=== PATIENT | male | born 1930 | race Caucasian/White ===

== ENCOUNTER 2017-05-23 08:20 | Inpatient (IN) | payer MEDICARE, BC ==
[~2017-05-23] VITALS: Ht 185.4 cm; Wt 75.0 kg
[~2017-05-23 08:20] MED LIST: AMIO200T2 PO; CALC1TAB98 PO; CYAN100T PO; FER325 PO; MEX150 PO; OMEP20CA9 PO; SIMV20TA2 PO; VIT1CAPS15 PO
[2017-05-23] MEDS ORDERED: SOD CHLORIDE 0.9% 1,000 ML IV STA (08:25)
[2017-05-23] MEDS ORDERED: KETOROLAC 15 MG INJ IV STA (08:25)
--- NOTE | 2017-05-23 08:25 | ERD ---
ER Documentation Chief Complaint Date/Time DATE: 05/23/17 TIME: 08:24 Chief Complaint HPI 87-year-old man brought in by EMS from skilled nursing for suspected right hip fracture. He fell this morning. He denies head or neck injury, but he was not able to ambulate after the incident. Patient denies chest pain or shortness of breath, no vomiting or diarrhea. Patient was transported here by EMS without further complications ROS All systems reviewed and are negative except as per history of present illness. Medications Home Meds Reported Medications Omeprazole* (Omeprazole*) 40 Mg Capsule.dr, 40 MG PO DAILY, #30 CAP 05/23/17 Vit C/Billie Ac/Lut/Copper/Znox (PRESERVISION LUTEIN SOFTGEL) 1 Each Capsule, 1 EACH PO DAILY 07/28/15 Calcium Carbonate-Vitamin D3 (Calcium + D 600 Tablet) 1 Tab Tablet, 1 TAB PO DAILY, TAB 07/28/15 Ferrous Sulfate* (Ferrous Sulfate*) 325 Mg Tabec, 325 MG PO DAILY, TAB 07/28/15 Cyanocobalamin* (Vitamin B-12*) 100 Mcg Tablet, 100 MCG PO DAILY, TAB 07/28/15 Mexiletine Hcl* (Mexiletine Hcl*) 150 Mg Capsule, 150 MG PO DAILY, CAP 07/28/15 Amiodarone Hcl* (Amiodarone Hcl*) 200 Mg Tablet, 200 MG PO BID, TAB 07/28/15 Simvastatin (Simvastatin) 20 Mg Tablet, 20 MG PO HS, TAB 07/28/15 Discontinued Reported Medications Omeprazole* (Prilosec*) 20 Mg Capsule.dr, 20 MG PO BID, CAP 07/28/15 Allergies Allergies: Coded Allergies: No Known Allergy (Unverified , 05/23/17) PMhx/Soc History of cholelithiasis, hiatal hernia, sick sinus syndrome status post pacemaker, hypertension, dyslipidemia, anemia, deconditioning, difficulty ambulating History of Surgery: Yes (pacemaker placement) Anesthesia Reaction: No Hx Neurological Disorder: No Hx Respiratory Disorders: Yes (APNEA) Hx Cardiac Disorders: Yes (HYPERTENSION, HYPERCHOLESTEROLEMIA) Hx Psychiatric Problems: No Hx Miscellaneous Medical Probl: Yes (sick sinus syndrome, HTN, hyperlipidemia, A-Fib) Hx Alcohol Use: No Hx Substance Use: No Hx Tobacco Use: No FmHx Family History: No diabetes Physical Exam Vitals Vital Signs Date Time Temp Pulse Resp B/P Pulse Ox O2 Delivery O2 Flow Rate FiO2 05/23/17 08:40 96.6 70 19 127/60 93 Room Air 05/23/17 08:28 97.8 78 16 135/68 100 Per nurses records Physical Exam GENERAL: Well-developed, well-nourished, appears dehydrated, afebrile HEENT: Dry mucous membranes, pink conjunctiva, no cervical spine tenderness or step-off deformities, no goiter, no jaundice or icterus, extraocular movements intact without pain. No submandibular induration, and no pharyngeal erythema NEURO: Alert and oriented 3, cranial nerves II through XII intact bilaterally, pupils equal round reactive to light, no focal deficits or facial asymmetry, sensation intact distally Strength 5/5 in upper and lower extremities bilaterally CARDIAC: Regular rate and rhythm, no murmurs rubs or gallops LUNGS: Clear bilaterally no wheezing crackles or stridor ABDOMEN: Soft nontender, no guarding, no rigidity, no rebound, no psoas sign no obturator sign. Normoactive bowel sounds SKIN: Warm and dry to touch, no abrasions, contusions, or hematomas, no lacerations, no ecchymosis, no target lesions, and without ulcers EXTREMITIES: Right lateral hip tenderness to touch with soft tissue contusion, distal pulses equal bilateral PSYCH: Normal affect without agitation or irritability Result Diagram: 05/23/1782405/23/17824 Results 24 hrs Laboratory Tests Test 05/23/17 08:25 White Blood Count 5.410^3/ul Red Blood Count 3.8810^6/ul Hemoglobin 12.7g/dl Hematocrit 38.6% Mean Corpuscular Volume 99.5fl Mean Corpuscular Hemoglobin 32.7pg Mean Corpuscular Hemoglobin Concent 32.9g/dl Red Cell Distribution Width 13.8% Platelet Count 72109^3/UL Mean Platelet Volume 9.1fl Neutrophils % 75.9% Lymphocytes % 11.4% Monocytes % 6.5% Eosinophils % 5.2% Basophils % 0.4% Nucleated Red Blood Cells % 0.0/100WBC Neutrophils # (Manual) 4.110^3/ul Lymphocytes # 0.610^3/ul Monocytes # 0.410^3/ul Eosinophils # 0.310^3/ul Basophils # 0.010^3/ul Nucleated Red Blood Cells # 0.010^3/ul Sodium Level 145mmol/L Potassium Level 4.1mmol/L Chloride Level 102mmol/L Carbon Dioxide Level 31mmol/L Anion Gap 16 Blood Urea Nitrogen 24mg/dl Creatinine 1.04mg/dl Glucose Level 111mg/dl Calcium Level 8.9mg/dl Total Bilirubin 0.5mg/dl Direct Bilirubin 0.00mg/dl Indirect Bilirubin 0.5mg/dl Aspartate Amino Transf (AST/SGOT) 31IU/L Alanine Aminotransferase (ALT/SGPT) 49IU/L Alkaline Phosphatase 69IU/L Troponin I 0.026ng/ml Total Protein 6.9g/dl Albumin 3.6g/dl Globulin 3.30g/dl Albumin/Globulin Ratio 1.09 Lipase 20U/L Current Medications Medications (Trade) Dose Ordered Sig/Fiorella Route PRN Reason Start Time Stop Time Status Last Admin Dose Admin Sodium Chloride (NS) 1,000 ml @ 1,000 mls/hr Q1H STAT IV 05/23/17 08:25 05/23/17 09:24 DC 05/23/17 08:52 Ketorolac Tromethamine (Toradol) 15 mg ONCE STAT IV 05/23/17 08:25 05/23/17 08:27 DC 05/23/17 08:49 Procedures/MDM IV line was established patient was placed on computer aided drafter rhythm strip revealed a wide-complex rhythm at 70 bpm. Patient was afebrile. Perdomo catheter was placed and I administered 1 L normal saline intravenously for dehydration, Toradol 15 mg IV 1, Zofran 4 mg IV. Patient states his symptoms improved after EMS administered opioid analgesics and pain here controlled with Toradol, patient is without complaints of pain at this time. EKG performed, read by me revealed a normal sinus rhythm at 70 bpm, right axis deviation, right bundle branch block, no concerning ST elevations or depressions noted. One AP view of the chest performed, read by me reveals no acute infiltrates, normal mediastinum, sharp costophrenic and cardiac borders, no air under the diaphragm. Otherwise unremarkable chest x-ray. One view pelvis x-ray performed, read by me there is intratrochanteric fracture of the right femur, no other fracture or dislocation noted. Two-view x-ray of the right hip performed, read by me there is intratrochanteric proximal femur fracture no other fracture dislocation noted. CT scan of the brain was performed there is negative for acute bleed mass or shift. CBC was normal, electrolytes revealed dehydration, liver function tests normal, troponin negative. Urine analysis negative for infection. Patient will be admitted to [facility] for continued medical management and possible ORIF, on-call orthopedic surgeon Dr. Eagle has been paid she has yet to call back. Departure Diagnosis: Primary Impression: Femur fracture, right Encounter type: initial encounter Femur location: lesser trochanter Fracture type: closed Fracture alignment: displaced Qualified Code: S72.121A - Closed displaced fracture of lesser trochanter of right femur, initial encounter Additional Impression: Dehydration Condition: TARAS Hayes MD May 23, 2017 08:25
[2017-05-23 08:40] VITALS: TEMP 96.6
[2017-05-23 09:21] LABS: BASOPHILS % 0.4 % (0.0-2.0); EOSINOPHILS # 0.3 10^3/ul (0.0-0.5); EOSINOPHILS % 5.2 % (0.0-7.0); HEMATOCRIT 38.6 % (42.0-52.0); HEMOGLOBIN 12.7 g/dl (14.0-18.0); LYMPHOCYTES # 0.6 10^3/ul (0.8-2.9); LYMPHOCYTES % 11.4 % (15.0-51.0); MEAN CORPUSCULAR HEMOGLOBIN 32.7 pg (29.0-33.0); MEAN CORPUSCULAR HGB CONC 32.9 g/dl (32.0-37.0); MEAN CORPUSCULAR VOLUME 99.5 fl (82.0-101.0); MEAN PLATELET VOLUME 9.1 fl (7.4-10.4); MONOCYTE # 0.4 10^3/ul (0.3-0.9); MONOCYTES % 6.5 % (0.0-11.0); NEUTROPHILS % 75.9 % (39.0-77.0); PLATELET COUNT 155 10^3/UL (140-415); RED BLOOD COUNT 3.88 10^6/ul (4.70-6.10); RED CELL DISTRIBUTION WIDTH 13.8 % (11.5-14.5); WHITE BLOOD COUNT 5.4 10^3/ul (4.8-10.8)
--- NOTE | 2017-05-23 09:24 | RADRPT ---
PROCEDURE: XR Chest 1 view. CLINICAL INDICATION: Chest pain and trauma. TECHNIQUE: AP views of the chest were obtained. COMPARISON: July 30, 2015 FINDINGS: The heart is large. Calcified atherosclerosis is noted in the aorta. Left-sided dual chamber pacema ker has its leads over the heart and appears stable. The lungs are hyperexpanded. Scattered atelec tasis is noted in the bilateral lower lobes. No consolidations are identified. No pneumothorax is s een. The osseous structures are osteopenic, but appear grossly intact. Degenerative changes are s een in the shoulders. IMPRESSION: Cardiomegaly with calcified atherosclerosis in the aorta. No visualized traumatic injury. Hyperexpanded lungs. Subsegmental atelectasis in the bilateral lower lobes. If there is high clinical suspicion for traumatic injury, further evaluation with CT should be consi dered. RPTAT: AA .Alexander Juan MD, MD Date Time Electronically viewed and signed by .Alexander Juan MD, MD on 05/23/2017 09:23 .P/
--- NOTE | 2017-05-23 09:25 | RADRPT ---
PROCEDURE: XR Pelvis 1 View. CLINICAL INDICATION: Pelvic pain and trauma. TECHNIQUE: Single AP view of the pelvis. COMPARISON: No prior studies are available for comparison. FINDINGS: Comminuted, mildly displaced, impacted and angulated fracture involving the proximal femoral diaphys is and lesser trochanter is identified. Diffuse osteopenia is observed. The remaining osseous struc tures appear intact. No destructive bony lesions are observed. Moderate narrowing of bilateral hip joints is identified. Degenerative changes are seen in the lower lumbar spine. Vascular calcificat ions are seen in the pelvis in both thighs. IMPRESSION: Proximal right femur fracture, involving the lesser trochanter. Osteopenia. Moderate osteoarthritis of both hips. Degenerative changes in the lower lumbar spine. Vascular calcifications. If there is high clinical suspicion for additional traumatic injury, further evaluation with CT shou ld be considered.. RPTAT: AA .Alexander Juan MD, Date Time Electronically viewed and signed by .Alexander Juan MD, MD on 05/23/2017 09:25 .P/
--- NOTE | 2017-05-23 09:26 | RADRPT ---
PROCEDURE: XR Hip 2 Views. CLINICAL INDICATION: Hip pain and trauma. TECHNIQUE: AP and oblique views of the right hip were performed. COMPARISON: None. FINDINGS: Comminuted, mildly displaced, impacted and angulated fracture involving the proximal femoral diaphys is and lesser trochanter is identified. Osteopenia is seen. The remaining osseous structures appear intact. No destructive bony lesions are observed. Moderate narrowing of the right hip joint is se en. Vascular calcifications are seen in the right thigh. IMPRESSION: Proximal right femur fracture. Osteopenia. Moderate osteoarthritis of the right hip. Vascular calcifications. If there is high clinical suspicion for additional traumatic injury, further evaluation with CT shou ld be considered. RPTAT: AA .Alexander Juan MD, Date Time Electronically viewed and signed by .Alexander Juan MD, MD on 05/23/2017 09:26 .P/
[2017-05-23 09:35] LABS: ALBUMIN 3.6 g/dl (3.3-4.9); ALBUMIN/GLOBULIN RATIO 1.09; BILIRUBIN,INDIRECT 0.5 mg/dl (0-1.1); BILIRUBIN,TOTAL 0.5 mg/dl (0.2-1.3); CALCIUM 8.9 mg/dl (8.4-10.2); CREATININE 1.04 mg/dl (0.61-1.24); POTASSIUM 4.1 mmol/L (3.5-5.1); TOTAL PROTEIN 6.9 g/dl (6.1-8.1)
[2017-05-23 09:46] LABS: TROPONIN-I 0.026 ng/ml (0.00-0.12)
--- NOTE | 2017-05-23 10:16 | RADRPT ---
PROCEDURE: CT head without intravenous contrast CLINICAL INDICATION: Fall. Concern for intracranial hemorrhage. COMPARISON: None relevant listed. TECHNIQUE: Axial CT images from skull base to vertex with coronal and sagittal reformats. DOSE: The estimated administered radiation dose was CTDI vol = 45 mGy. DLP = 630 mGy-cm. One or mor e of the following dose reduction techniques were used: automated exposure control, adjustment of th e mA and/or kV according to patient size, or use of iterative reconstruction. FINDINGS: Parenchyma: No acute hemorrhage, large territorial infarction, or mass. Marked amount of periventric ular and subcortical white matter hypodensity, a nonspecific finding often associated with chronic m icroangiopathy. Ventricles: Mild generalized volume with proportionate ex vacuo ventricular dilation. Extra-axial spaces: No herniation or midline shift. Paranasal sinuses: Clear. Mastoids and middle ears: Clear. Visualized orbits: Bilateral lens replacements. Vessels: Mild calcified atherosclerotic arterial plaque. Bones: Normal. Extracranial soft tissues: Normal. Additional comment: None. IMPRESSION: 1. No acute intracranial hemorrhage. 2. Marked white matter changes, a nonspecific finding often associated with chronic microangiopathy. RPTAT: PP Physician Paula Date Time Electronically viewed and signed by Physician Paula on 05/23/2017 10:16 LG/
[2017-05-23] MEDS ORDERED: OMEP40CA6 PO (10:18)
[2017-05-23 15:00] VITALS: BP 99/48; PULSE 76; RESP 18
[2017-05-23 15:32] VITALS: Ht 185.4 cm; Wt 75.0 kg
[2017-05-23] MEDS: morphine 2 MG INJ IV PRN (15:37)
--- NOTE | 2017-05-23 15:44 | HP ---
Date/Time of Note Date/Time of Note DATE: 05/23/17 TIME: 15:35 Assessment/Plan VTE Prophylaxis VTE Prophylaxis Intervention: SCD's Lines/Catheters Urinary Cath still in place: Yes Reason Cath still needed: other (indicate) Assessment/Plan Assessment/Plan This is a 87-year-old male who was brought by EMS following mechanical fall with resultant right leg pain. 1. Mechanical fall with proximal femur fracture. -Orthopedic consult with Dr. Eagle was called from the emergency room. -Continue pain control and immobilization of affected part. 2. Atrial fibrillation, status post AICD placed -Resume amiodarone and mexiletine -EKG and 2D echocardiogram. 3. History of hypertension. Of treatment 2/2 hypotension for which patient on Midodrine at home. Currently blood pressure stable. -Continue to monitor. 4. Dyslipidemia -Resume statin and obtain lipid panel 5. Osteoarthritis -Resume home medications. 6. Debility -Follow-up with orthopedic recommendations regarding physical therapy when medically stable. DVT prophylaxis: SCDs PUD prophylaxis: Protonix Plan: Patient will be started on a diet. Patient will have orthopedic evaluation. We will also proceed with a 2D echocardiogram and twelve-lead EKG based on his cardiac risk factors and will also have a cardiology eval in case if patient needs any surgical intervention. Given patient's medical condition, patient is at intermediate to high risk for any untoward medical events for surgery. However, benefit likely outweigh risks and recommended to have surgical intervention if indicated by orthopedics. Approximately 60 minutes was spent on this history and physical. Patient was seen in collaboration with Dr. Rubin. HPI/ROS Admit Date/Time Admit Date/Time May 23, 2017 at 10:26 Hx of Present Illness This is a 87 year-old male with a past medical history of atrial fibrillation AICD placed, cervical fusion surgery, debility with wheelchair bound at home, history of hypertension now on hypotensive side for which he also takes midodrine at home, dyslipidemia, osteoarthritis, and ingrown toenails on left who was brought by EMS to the emergency room after patient sustained mechanical fall with resultant right hip pain and right foot drop. Patient did not have any head trauma or other trauma with this fall. Initial workup showed proximal femur fracture. Brain CT was negative. Patient was treated with Toradol and normal saline in the emergency room and orthopedic consult with Dr. Eagle was called and patient was admitted for further evaluation. Patient denied any chest pain, shortness of breath, palpitation, nausea, vomiting, abdominal pain, dizziness, numbness, tingling, or other constitutional symptoms. Patient did not have any fever or chills. ROS 12 point review of system was assessed and is negative other than what is mentioned in the HPI. PMH/Family/Social Past Medical History see HPI Past Surgical History see hpi Social History Former smoker who quit 5 years ago. Denied history of alcohol or illicit drug use. Smoking Status: Former smoker Exam/Review of Systems Vital Signs Vitals Vital Signs Date Time Temp Pulse Resp B/P Pulse Ox O2 Delivery O2 Flow Rate FiO2 05/23/17 15:00 98.0 76 18 99/48 95 Nasal Cannula 2.0 Exam Exam General: Fairly male, not in any acute distress . HEENT: Normocephalic, Atraumatic, No laceration or hematoma; Eyes: PEERL, Conjunctiva clear, Anicteric sclera Neck: Supple without any lymphadenopathy, nontender, no JVD, no carotid bruits, trachea midline, no thyromegaly Cardiac: S1, S2 auscultated, regular rhythm and rate, no mumurs or gallop Pulmonary: Normal respiratory effort. Chest clear to auscultation bilaterally, no adventitious breath sounds GI: Abdomen normal to inspection. Soft, non tender, non- distended, no masses, no rebound tenderness or guarding. Bowel sounds active on all four quadrants Genitourinary: Deferred Extremities: Generalized weakness on all 4 extremities. Right hip with pain and shortening and external rotation of the right lower extremity. No cyanosis, clubbing, or edema. Pulses [2+] bilaterally.No focal weakness appreciated. Neurologic: Alert to person, place, time, and situation. Affect appropriate, intact sensation. Skin: Clean,dry, and intact. No ecchymosis, no rashes, or lesions Labs Result Diagram: 05/23/1782405/23/17824 Medications Medications Current Medications Morphine Sulfate (morphine) 2 mg Q3 PRN IV pain; Start 05/23/17 at 15:00 NELLY LEVI NP May 23, 2017 15:44
[2017-05-23] MEDS ORDERED: ACETAMINOPHEN 650 MG SUPP PR PRN (16:00)
[2017-05-23] MEDS ORDERED: ACETAMINOPHEN 325 MG TAB PO PRN (16:00)
[2017-05-23] MEDS ORDERED: ONDANSETRON 4 MG INJ IV PRN (16:00)
[2017-05-23] MEDS ORDERED: NACL 0.9% 3 ML SYG IV SCH (16:00)
[2017-05-23] MEDS ORDERED: morphine 2 MG INJ IV PRN (16:00)
[2017-05-23] MEDS ORDERED: MIDO2.5T PO (18:02)
[2017-05-23] MEDS: CALCIUM/VITAMIN D (250/125) TAB PO SCH (18:46)
[2017-05-23] MEDS: ATORVASTATIN 10 MG TAB PO SCH (21:04)
[2017-05-23] MEDS: AMIODARONE 200 MG TAB PO SCH (21:04)
[2017-05-23 21:05] VITALS: BP 108/54; PULSE 70; RESP 17
--- NOTE | 2017-05-23 22:40 | RADRPT ---
Echocardiogram Report Patient Name: FIDEL PINEDA Gender: Male Date: 1930 Study Date: 23-May-2017 Commodity Buyer: Dimitry [facility] Location: 405 Ref. Physician: NELLY LEVI Quality: Adequate Procedures: Transthoracic echocardiogram with complete 2D, M-Mode, and doppler examination. Indications: Pre-op eval. 2D/M Mode Doppler Measurement Value Normal Ranges Measurement Value Normal Ranges LVIDd 2D 4.9 3.5 - 5.6 cm AV Peak Los 1.9 m/sec LVIDs 2D 4.0 2.1 - 4.1 cm AV Peak PG 14.0 mmHg FS 2D 19.0 % LVOT Peak Los 0.7 m/sec LVPWd 2D 1.1 0.6 - 1.1 cm LVOT Peak PG 2.0 mmHg IVSd 2D 1.1 0.6 - 1.1 cm MV E Peak Los 0.9 m/sec IVS/LVPW 2D 0.9 MV A Peak Los 0.9 m/sec AoR Diam 2D 2.6 2.0 - 3.7 cm MV E/A 1.0 LA/Ao 2D 2 0 - 1 MV Decel Time 201 msec EDV 2D 117.0 cm3 MV E/A 1.0 ESV 2D 62.1 cm3 TR Peak Los 2.3 m/sec LA Dimen 2D 4.0 2.3 - 4.0 cm TR Peak PG 21.0 mmHg RVSP 24.0 mmHg Findings Left Ventricle: Normal left ventricular systolic function. Normal left ventricular cavity size. Left ventricular wall thickness upper limits of normal. Mild global left ventricular systolic dysfunction. Ejection fraction is visually estimated at 40 %. Tissue Doppler/Mitral Doppler indices are consistent with impaired relaxation (Stage I diastolic dysfunction). Right Ventricle: Normal right ventricular size. Normal right ventricular systolic function. Pacemaker right heart. Left Atrium: The left atrium is normal in size. Right Atrium: The right atrium is normal in size. Mitral Valve: Mitral valve leaflets appear mildly thickened. Mild mitral annular calcification. Trace mitral regurgitation. Aortic Valve: Aortic sclerosis without stenosis. Trace aortic valve regurgitation. Tricuspid Valve: Normal appearance of the tricuspid valve. Estimated peak PA systolic pressure 24 mmHg. There is mild tricuspid regurgitation. Pulmonic Valve: Pulmonic valve not well visualized. There is trace pulmonic regurgitation. Pericardium: Left pleural effusion seen. Aorta: Normal aortic root. IVC: Normal size and normal respiratory collapse consistent with normal right atrial pressure. Conclusions 1.Normal left ventricular systolic function. Normal left ventricular cavity size. Left ventricular wall thickness upper limits of normal. Mild global left ventricular systolic dysfunction. Ejection fraction is visually estimated at 40 %. Tissue Doppler/Mitral Doppler indices are consistent with impaired relaxation (Stage I diastolic dysfunction). 2.Normal right ventricular size. Normal right ventricular systolic function. Pacemaker right heart. 3.Mitral valve leaflets appear mildly thickened. Mild mitral annular calcification. Trace mitral regurgitation. 4.Aortic sclerosis without stenosis. Trace aortic valve regurgitation. 5.Normal appearance of the tricuspid valve. Estimated peak PA systolic pressure 24 mmHg. There is mild tricuspid regurgitation. 6.Pulmonic valve not well visualized. There is trace pulmonic regurgitation. Electronically Signed By: Josh Holliday 23-May-2017 22:40:00 -0700 Patient Name: FIDEL PINEDA Study Date: 23-May-2017 [id number]
--- NOTE | 2017-05-24 02:54 | CONS ---
DATE OF ADMISSION: 05/23/2017 DATE OF CONSULTATION: 05/23/2017 TYPE OF CONSULTATION: Cardiology REFERRING PHYSICIAN: Justo Rubin MD/Karoline Tyler NP from the hospitalist service. REASON FOR CONSULTATION: Preoperative evaluation, AICD, cardiomyopathy. HISTORY OF PRESENT ILLNESS: Mr. Gill is a very pleasant 87-year- old male with a history of AICD placement, presumed cardiomyopathy, atrial fibrillation, and dyslipidemia who states he was in his bathroom using his walker when he took a turn, slipped and fell, landed on his hip and had significant pain. The patient was brought here to the Emergency Department were upon arrival temperature was 97.8, blood pressure 135/68, pulse 78, respiratory rate 16, and saturating at 100 percent. The patient's labs, white blood cell count 5.4, hemoglobin 12.7, platelet count of 155. Sodium 145, potassium 4.1, creatinine 1.0, BUN 24. Troponin negative. Lipase was 20. The patient underwent a pelvic x-ray, revealing moderate arthritis of both hips, proximal right femur fracture involving the lesser trochanter. The patient had a hip x-ray, also revealing a proximal right femur fracture. A chest x-ray revealed cardiomegaly, calcified atherosclerosis in the aorta, no visualized traumatic injury, and hyperexpanded lungs. A brain CT revealed no acute intracranial abnormalities and marked white matter changes. The patient does not have much currently on the chart for my review at this time. The patient is admitted to the 5th floor. Denies chest pain, shortness of breath. PAST MEDICAL HISTORY: As above in HPI. MEDICATIONS: Currently in the hospital: 1. Mexiletine 150 mg daily. 2. Amiodarone 200 mg p.o. b.i.d. 3. Lipitor 10 mg daily. ALLERGIES: NO KNOWN DRUG ALLERGIES. SOCIAL HISTORY: No current tobacco, ETOH or illicit drug use. FAMILY HISTORY: No history of sudden cardiac or early CAD. REVIEW OF SYSTEMS: As above in the HPI. CONSTITUTIONAL: No fevers, chills. PULMONARY: No current shortness of breath. CARDIOVASCULAR: History of AICD. GASTROINTESTINAL: No vomiting. GENITOURINARY: No hematuria. MUSCULOSKELETAL: Degenerative joint disease. PSYCHIATRIC: Mo documented psychiatric history. NEUROLOGIC: No documented CVA. PHYSICAL EXAMINATION: VITAL SIGNS: Temperature 98, blood pressure 159/48, pulse 76, respiratory rate 18, saturating at 95 percent on 2 L. GENERAL: The patient is alert, awake, in no acute distress, complaining of mild pain in his right hip. NECK: JVP of approximately 8-9 cm of water. HEART: Regular rate and rhythm. Normal S1, S2 and 1/6 systolic murmur. ABDOMEN: Positive bowel sounds. Soft. EXTREMITIES: No pitting edema; 1-plus pulses bilaterally posterior tibial. LABORATORY DATA: Labs as per in the HPI with most recent today, sodium 145, potassium 4.1, creatinine 1.0, BUN 24; troponin negative; white blood cell count 5.4, hemoglobin 12.7, platelet count 155. IMAGING STUDIES: As above in the HPI. No further imaging studies for review. ECG, no electrocardiograms for review at this time. IMPRESSION: 1. Preoperative evaluation prior to possible open reduction and internal fixation of hip. 2. Status post fall, mechanical by description. 3. History of automatic implantable cardioverter defibrillator. 4. Presumed cardiomyopathy. 5. History of atrial fibrillation. 6. Hip fracture. 7. Dyslipidemia. RECOMMENDATIONS: 1. At this time, would check a baseline EKG now and repeat EKG in the morning to assess for any recent abnormalities. 2. We will check a 2D echo to further assess the patient's ejection fraction, wall motion, and any major abnormalities. 3. Continue the patient's current amiodarone and Mexiletine at this time. Although, mexiletine, if used for cardiac rate and rhythm, this will be dosed at least q.12 and likely q.8. 4. Continue the patient's current statin therapy and adjust according to a fasting lipid panel which will be checked. 5. We will consider initiation of beta-fuad therapy in this patient who is on multiple antiarrhythmic agents, for what I would presume to be ventricular arrhythmias given mexiletine. 6. Pain control. 7. Pending orthopedic consult. Thank you for allowing me to take part in the care of this patient. I will continue to follow very closely with you with further recommendations to be made as the patient progresses through inpatient hospital clinical course. Dictated By: Josh Holliday MD /fito/serg /Document#: [id number] CC: Justo Rubin MD; Karoline Tyler NP;*EndCC*
--- NOTE | 2017-05-24 03:32 | CONS ---
DATE OF ADMISSION: 05/23/2017 DATE OF CONSULTATION: 05/23/2017 HISTORY OF PRESENT ILLNESS: Patient is an 87-year-old male, who was admitted on 23 May 2017 when he was brought into the emergency room by EMS. According to the patient, he was in the bathroom when he lost his balance and fell, landing on his right hip. Following the fall, he was not able to stand up or walk because of the severe pain. PAST MEDICAL/SURGICAL HISTORY: He had multiple medical problems in the past, including atrial fibrillation, which led into AICD placement, cervical fusion surgery, history of hypertension, dyslipidemia, osteoarthritis, and ingrown toenails. PHYSICAL EXAMINATION: My examination revealed an 87-year-old male who was not in any acute distress at this time. There was a tenderness and swelling around the right hip. There was a shortening and external rotation of the right lower extremity. There was no evidence of acute neurovascular compromise involving the right lower extremity. RADIOLOGY: X-rays of the right hip revealed an intertrochanteric/subtrochanteric fracture of the right hip. IMPRESSION: Intertrochanteric and subtrochanteric fracture of the right hip. PLAN: To surgery for open reduction and internal fixation as soon as he can be medically cleared for surgery. Dictated By: In Cora Eagle MD /fito/leatha /Document#: [id number]
[2017-05-24 03:57] VITALS: BP 102/50; RESP 20
[2017-05-24] MEDS: PANTOPRAZOLE (EC) 40 MG TAB PO SCH (05:01)
[2017-05-24 05:33] LABS: ABNORMAL IP MESSAGE 1; BASOPHILS % 0.2 % (0.0-2.0); EOSINOPHILS # 0.2 10^3/ul (0.0-0.5); EOSINOPHILS % 4.2 % (0.0-7.0); HEMATOCRIT 32.7 % (42.0-52.0); HEMOGLOBIN 10.7 g/dl (14.0-18.0); LYMPHOCYTES # 0.6 10^3/ul (0.8-2.9); LYMPHOCYTES % 9.7 % (15.0-51.0); MEAN CORPUSCULAR HEMOGLOBIN 33.1 pg (29.0-33.0); MEAN CORPUSCULAR HGB CONC 32.7 g/dl (32.0-37.0); MEAN CORPUSCULAR VOLUME 101.2 fl (82.0-101.0); MEAN PLATELET VOLUME 9.4 fl (7.4-10.4); MONOCYTE # 0.6 10^3/ul (0.3-0.9); MONOCYTES % 10.4 % (0.0-11.0); PLATELET COUNT 131 10^3/UL (140-415); POSITIVE DIFF @See below; RED BLOOD COUNT 3.23 10^6/ul (4.70-6.10); WHITE BLOOD COUNT 5.8 10^3/ul (4.8-10.8)
[2017-05-24] MEDS: morphine 2 MG INJ IV PRN ×3 (05:50→16:10)
[2017-05-24] MEDS ORDERED: DEXTROSE 5%-0.45% NACL 1,000 ML IV SCH (06:00)
[2017-05-24 06:03] LABS: ALBUMIN 2.7 g/dl (3.3-4.9); ALBUMIN/GLOBULIN RATIO 1.03; BILIRUBIN,INDIRECT 0.4 mg/dl (0-1.1); BILIRUBIN,TOTAL 0.4 mg/dl (0.2-1.3); CALCIUM 8.3 mg/dl (8.4-10.2); CHOL/HDL RATIO 1.7 RATIO; CREATININE 0.99 mg/dl (0.61-1.24); MAGNESIUM 1.8 mg/dl (1.7-2.5); PHOSPHORUS 3.7 mg/dl (2.5-4.9); TOTAL PROTEIN 5.3 g/dl (6.1-8.1)
[2017-05-24] MEDS: DEXTROSE 5%-0.45% NACL 500 ML IV SCH ×3 (06:43→20:20)
[2017-05-24 07:41] VITALS: BP 102/55; RESP 18
[2017-05-24 07:42] LABS: THYROID STIMULATING HORMONE 0.436 MIU/L (0.465-4.680)
[2017-05-24] MEDS: MEXILETINE 150 MG CAP PO SCH (09:00)
[2017-05-24] MEDS: CALCIUM/VITAMIN D (250/125) TAB PO SCH (09:00)
[2017-05-24] MEDS ORDERED: CYANOCOBALAMIN 100 MCG TAB PO SCH (09:00)
[2017-05-24] MEDS: FERROUS SULFATE (EC) 325 MG TAB PO SCH (09:00)
[2017-05-24] MEDS: BETA CAROTENE/VIT C/E/MIN TAB PO SCH (09:00)
[2017-05-24] MEDS: AMIODARONE 200 MG TAB PO SCH ×2 (09:00→20:56)
--- NOTE | 2017-05-24 11:13 | PN ---
Date/Time of Note Date/Time of Note DATE: 05/24/17 TIME: 11:05 Assessment/Plan VTE Prophylaxis VTE Prophylaxis Intervention: SCD's Lines/Catheters IV Catheter Type (from Nrsg): Saline Lock Urinary Cath still in place: Yes Reason Cath still needed: other (indicate) Assessment/Plan Chief Complaint/Hosp Course 1. Mechanical fall with proximal femur fracture. -Ortho eval appreciated-Recommended ORIF -Continue pain control and immobilization of affected part. 2. Atrial fibrillation, status post AICD placed -On amiodarone and Mexiletine 3.Cardiomyopathy. EF 40% -On betablockers. 4. History of hypertension. Of treatment 2/2 hypotension for which patient takes midodrine at home. Currently blood pressure stable. -Continue to monitor as patient has been started on betablocker per cards. 5. Dyslipidemia -on statin 6. Osteoarthritis -Continue home medications. 7. Debility -Follow-up with orthopedic recommendations regarding physical therapy when medically stable. 8. Anemia,likely chronic. HH stable. -Obtain B12/Folate. DVT prophylaxis: SCDs PUD prophylaxis: Protonix PLAN:Continue with ortho recs. Pending cardiology clearance for surgery. Given patient's medical condition, patient is at high risk for any untoward medical events for surgery. However, benefit likely outweigh risks and recommended to have surgical intervention. Please follow-up with cardiology recommendation prior any surgical intervention. Case discussed with . Problems: Subjective 24 Hr Interval Summary Free Text/Dictation Evaluated by orthopedic-recommended ORIF Exam/Review of Systems Vital Signs Vitals Vital Signs Date Time Temp Pulse Resp B/P Pulse Ox O2 Delivery O2 Flow Rate FiO2 05/24/17 07:41 97.9 70 18 102/55 99 05/23/17 21:05 Nasal Cannula 2.0 Intake and Output 05/23/17 05/23/17 05/24/17 14:59 22:59 06:59 Intake Total 1000 ml 400 ml Output Total 400 ml Balance 1000 ml 0 ml Exam General: Fairly male, not in any acute distress . HEENT: Normocephalic, Atraumatic, No laceration or hematoma; Eyes: PEERL, Conjunctiva clear, Anicteric sclera Neck: Supple without any lymphadenopathy, nontender, no JVD, no carotid bruits, trachea midline, no thyromegaly Cardiac: S1, S2 auscultated, regular rhythm and rate, no mumurs or gallop Pulmonary: Normal respiratory effort. Chest clear to auscultation bilaterally, no adventitious breath sounds GI: Abdomen normal to inspection. Soft, non tender, non- distended, no masses, no rebound tenderness or guarding. Bowel sounds active on all four quadrants Genitourinary: Deferred Extremities: Generalized weakness on all 4 extremities. Right hip with pain and shortening and external rotation of the right lower extremity. No cyanosis, clubbing, or edema. Pulses [2+] bilaterally.No focal weakness appreciated. Neurologic: Alert to person, place, time, and situation. Affect appropriate, intact sensation. Skin: Clean,dry, and intact. No ecchymosis, no rashes, or lesions Results Result Diagram: 05/24/1743905/24/17442 Results 24 hrs Laboratory Tests Test 05/24/17 00:35 05/24/17 04:40 05/24/17 04:43 Troponin I 0.034 0.038 White Blood Count 5.8 Red Blood Count 3.23 L Hemoglobin 10.7 L Hematocrit 32.7 L Mean Corpuscular Volume 101.2 H Mean Corpuscular Hemoglobin 33.1 H Mean Corpuscular Hemoglobin Concent 32.7 Red Cell Distribution Width 14.0 Platelet Count 131 L Mean Platelet Volume 9.4 Neutrophils % 75.0 Lymphocytes % 9.7 L Monocytes % 10.4 Eosinophils % 4.2 Basophils % 0.2 Nucleated Red Blood Cells % 0.0 Neutrophils # (Manual) 4.3 Lymphocytes # 0.6 L Monocytes # 0.6 Eosinophils # 0.2 Basophils # 0.0 Nucleated Red Blood Cells # 0.0 Sodium Level 141 Potassium Level 4.0 Chloride Level 108 Carbon Dioxide Level 29 Anion Gap 8 # Blood Urea Nitrogen 32 H Creatinine 0.99 Glucose Level 115 Hemoglobin A1c 5.5 Calcium Level 8.3 L Phosphorus Level 3.7 Magnesium Level 1.8 Total Bilirubin 0.4 Direct Bilirubin 0.00 Indirect Bilirubin 0.4 Aspartate Amino Transf (AST/SGOT) 24 Alanine Aminotransferase (ALT/SGPT) 45 Alkaline Phosphatase 52 Total Protein 5.3 #L Albumin 2.7 L Globulin 2.60 Albumin/Globulin Ratio 1.03 Triglycerides Level 48 Cholesterol Level 97 L LDL Cholesterol, Calculated 32 HDL Cholesterol 55 Cholesterol/HDL Ratio 1.7 Thyroid Stimulating Hormone (TSH) 0.436 L Medications Medications Current Medications Morphine Sulfate (morphine) 2 mg Q3 PRN IV pain Last administered on 05/24/17 05:50; Admin Dose 2 MG; Start 05/23/17 at 15:00 Amiodarone HCl (Cordarone) 200 mg BID PO Last administered on 05/23/17 21:04; Admin Dose 200 MG; Start 05/23/17 at 21:00 Cyanocobalamin (Vitamin B12) 100 mcg DAILY PO ; Start 05/24/17 at 09:00 Ferrous Sulfate (Ferrous Sulfate (Ec)) 325 mg DAILY PO ; Start 05/24/17 at 09:00 Mexiletine HCl (Mexitil) 150 mg DAILY PO ; Start 05/24/17 at 09:00 Calcium/Vitamin D (Oyster Shell/ Vit-D (250/125)) 1 tab DAILY PO Last administered on 05/23/17 18:46; Admin Dose 1 TAB; Start 05/23/17 at 16:30 Pantoprazole (Protonix Tab) 40 mg DAILY@06 PO ; Start 05/24/17 at 06:00 Atorvastatin Calcium (Lipitor) 10 mg DAILY@21 PO Last administered on 21:04; Admin Dose 10 MG; Start 05/23/17 at 21:00 Beta Carotene (Ocuvite) 1 tab DAILY PO ; Start 05/24/17 at 09:00 Ondansetron HCl (Zofran Inj) 4 mg Q6H PRN IV NAUSEA AND/OR VOMITING; Start at 16:00 Acetaminophen (Tylenol Tab) 650 mg Q6H PRN PO PAIN LEVEL 1-3 OR FEVER; Start at 16:00 Acetaminophen (Tylenol Supp) 650 mg Q6H PRN ID PAIN LEVEL 1-3 OR FEVER; Start 05/23/17 at 16:00 Morphine Sulfate (morphine) 2 mg Q4H PRN IV SEVERE PAIN LEVEL 7-10; Start 05/23 at 16:00 Docusate Sodium (Colace) 100 mg Q12H PRN PO CONSTIPATION; Start 05/23/17 at 16: 00 Carvedilol 3.125 mg 3.125 mg BID PO ; Start 05/23/17 at 21:00 Dextrose/Sodium Chloride (D5-1/2ns) 500 ml @ 75 mls/hr Q6H40M IV Last administered on 05/24/17t 06:43; Admin Dose 75 MLS/HR; Start 05/24/17 at 07:00 NELLY LEVI NP May 24, 2017 11:13
[2017-05-24 14:33] VITALS: BP 112/56; RESP 18
[2017-05-24 14:37] VITALS: BP 107/53; RESP 18
[2017-05-24 14:42] VITALS: BP 113/58; RESP 18
--- NOTE | 2017-05-24 15:35 | RADRPT ---
Vent Rate: 70 bpm RR Interval: 0 msec OR Interval: 124 msec QRS Duration: 176 msec QT Interval: 480 msec QTC Interval: 518 msec P-R-T [place]: 97 - 23 - 64 degrees Electronic atrial pacemaker Right bundle branch block Septal infarct , age undetermined Abnormal ECG Electronically Signed By: Trung Leo [id number]
--- NOTE | 2017-05-24 17:11 | CONS ---
Date/Time of Note Date/Time of Note DATE: 05/24/17 TIME: 17:03 Assessment/Plan Assessment/Plan Chief Complaint/Hosp Course MPRESSION: 1. Preoperative evaluation prior to possible open reduction and internal fixation of hip.-negative trop x 3. NO cp. EF 40%. NO contraindicated valve lesions. Thus no contraindication to proceeding to or at this time on current medications without further non-invasive evaluation but given low EF and h/o arrythmias is at high risk. 2. Status post fall, mechanical by description. 3. History of automatic implantable cardioverter defibrillator on anti- arrythmics 4. Presumed cardiomyopathy. 5. History of atrial fibrillation. 6. Hip fracture. 7. Dyslipidemia. 8. Cardiomyopathy-EF 40% RECC: -Contnue coreg -start low dose ACEI afterload reduction -follow volume status clsoely -Continue amiodarone/mexilitene -Check post-op ecg and follow closely for s/sx of cv complications Problems: Consultation Date/Type/Reason Admit Date/Time May 23, 2017 at 10:26 Initial Consult Date 05/24/2017 Type of Consultation: cardiology Reason for Consultation Preop Referring Provider: ZION CLEMENT Exam/Review of Systems Vital Signs Vitals Vital Signs Date Time Temp Pulse Resp B/P Pulse Ox O2 Delivery O2 Flow Rate FiO2 05/24/17 14:42 98.0 99 18 113/58 96 05/24/17 08:00 Nasal Cannula 2.0 Intake and Output 05/23/17 05/23/17 05/24/17 15:00 23:00 07:00 Intake Total 1000 ml 400 ml Output Total 400 ml Balance 1000 ml 0 ml Exam Review of Systems: CONSTITUTIONAL: No fevers, chills. PULMONARY: No sob CARDIOVASCULAR: No chest pain/palpitations GASTROINTESTINAL: No nausea/vomiting. GENITOURINARY: No hematuria/dysuria. MUSCULOSKELETAL: No myagias/arthalgias. PSYCHIATRIC: The patient denies depression. NEUROLOGIC: No weakness Constitutional: alert, oriented Psych: no complaints Head: normocephalic ENMT: mucosa pink and moist Neck: jvd (9 cm water), supple Respiratory: diminished breath sounds Cardiovascular: regular rate and rhythm Gastrointestinal: non-tender, soft Musculoskeletal: muscle tone Extremities: edema (none) Neurological: other (No focal deficits) Results Result Diagram: 9/1/17 0440 05/24/17 0443 Results 24 hrs Laboratory Tests Test 05/24/17 00:35 05/24/17 04:40 05/24/17 04:43 05/24/17 12:32 Troponin I 0.034 0.038 0.017 White Blood Count 5.8 Red Blood Count 3.23 L Hemoglobin 10.7 L Hematocrit 32.7 L Mean Corpuscular Volume 101.2 H Mean Corpuscular Hemoglobin 33.1 H Mean Corpuscular Hemoglobin Concent 32.7 Red Cell Distribution Width 14.0 Platelet Count 131 L Mean Platelet Volume 9.4 Neutrophils % 75.0 Lymphocytes % 9.7 L Monocytes % 10.4 Eosinophils % 4.2 Basophils % 0.2 Nucleated Red Blood Cells % 0.0 Neutrophils # (Manual) 4.3 Lymphocytes # 0.6 L Monocytes # 0.6 Eosinophils # 0.2 Basophils # 0.0 Nucleated Red Blood Cells # 0.0 Sodium Level 141 Potassium Level 4.0 Chloride Level 108 Carbon Dioxide Level 29 Anion Gap 8 # Blood Urea Nitrogen 32 H Creatinine 0.99 Glucose Level 115 Hemoglobin A1c 5.5 Calcium Level 8.3 L Phosphorus Level 3.7 Magnesium Level 1.8 Total Bilirubin 0.4 Direct Bilirubin 0.00 Indirect Bilirubin 0.4 Aspartate Amino Transf (AST/SGOT) 24 Alanine Aminotransferase (ALT/SGPT) 45 Alkaline Phosphatase 52 Total Protein 5.3 #L Albumin 2.7 L Globulin 2.60 Albumin/Globulin Ratio 1.03 Triglycerides Level 48 Cholesterol Level 97 L LDL Cholesterol, Calculated 32 HDL Cholesterol 55 Cholesterol/HDL Ratio 1.7 Thyroid Stimulating Hormone (TSH) 0.436 L Medications Medications Current Medications Morphine Sulfate (morphine) 2 mg Q3 PRN IV pain Last administered on 05/24/17 16:10; Admin Dose 2 MG; Start 05/23/17 at 15:00 Amiodarone HCl (Cordarone) 200 mg BID PO Last administered on 05/23/17 21:04; Admin Dose 200 MG; Start 05/23/17 at 21:00 Cyanocobalamin (Vitamin B12) 100 mcg DAILY PO ; Start 05/24/17 at 09:00 Ferrous Sulfate (Ferrous Sulfate (Ec)) 325 mg DAILY PO ; Start 05/24/17 at 09:00 Mexiletine HCl (Mexitil) 150 mg DAILY PO ; Start 05/24/17 at 09:00 Calcium/Vitamin D (Oyster Shell/ Vit-D (250/125)) 1 tab DAILY PO Last administered on 05/23/17 18:46; Admin Dose 1 TAB; Start 05/23/17 at 16:30 Pantoprazole (Protonix Tab) 40 mg DAILY@06 PO ; Start 05/24/17 at 06:00 Atorvastatin Calcium (Lipitor) 10 mg DAILY@21 PO Last administered on 21:04; Admin Dose 10 MG; Start 05/23/17 at 21:00 Beta Carotene (Ocuvite) 1 tab DAILY PO ; Start 05/24/17 at 09:00 Ondansetron HCl (Zofran Inj) 4 mg Q6H PRN IV NAUSEA AND/OR VOMITING; Start at 16:00 Acetaminophen (Tylenol Tab) 650 mg Q6H PRN PO PAIN LEVEL 1-3 OR FEVER; Start at 16:00 Acetaminophen (Tylenol Supp) 650 mg Q6H PRN [place] PAIN LEVEL 1-3 OR FEVER; Start 05/23/17 at 16:00 Morphine Sulfate (morphine) 2 mg Q4H PRN IV SEVERE PAIN LEVEL 7-10; Start 05/23 at 16:00 Docusate Sodium (Colace) 100 mg Q12H PRN PO CONSTIPATION; Start 05/23/17 at 16: 00 Carvedilol 3.125 mg 3.125 mg BID PO ; Start 05/23/17 at 21:00 Dextrose/Sodium Chloride (D5-1/2ns) 500 ml @ 75 mls/hr Q6H40M IV Last administered on 05/24/17 16:09; Admin Dose 75 MLS/HR; Start 05/24/17 at 07:00 VEDA GARCES May 24, 2017 17:11
[2017-05-24 20:14] VITALS: BP 115/55; RESP 18
[2017-05-24] MEDS: ATORVASTATIN 10 MG TAB PO SCH (20:56)
[2017-05-25] VITALS (43 sets, daily range): BP systolic 79–140; BP diastolic 33–82; PULSE 68–80; RESP 13–113
[2017-05-25] MEDS: DEXTROSE 5%-0.45% NACL 500 ML IV SCH ×2 (02:36→10:23)
[2017-05-25] MEDS: PANTOPRAZOLE (EC) 40 MG TAB PO SCH (06:00)
[2017-05-25 07:05] LABS: FOLATE > 20.0 ng/ml (2.8-20.0)
[2017-05-25] MEDS: morphine 2 MG INJ IV PRN ×2 (07:05→10:23)
[2017-05-25] MEDS ORDERED: LEVALBUTEROL (NEB) 0.63 MG/3 ML AMP HHN SCH (08:30)
--- NOTE | 2017-05-25 08:34 | PN ---
Date/Time of Note Date/Time of Note DATE: 05/25/17 TIME: 08:27 Assessment/Plan VTE Prophylaxis VTE Prophylaxis Intervention: SCD's Lines/Catheters IV Catheter Type (from Nrs): Peripheral IV Urinary Cath still in place: Yes Reason Cath still needed: urinary retention Assessment/Plan Problems: (1) Status post implantation of automatic cardioverter/defibrillator (AICD) Onset Date: ~ 06/2012 Status: Chronic Comment: His primary army helicopter pilot is Dr. Josh Casanova, who he saw 2 weeks ago. Cardiology is seeing him and this appears to be stable and fully operational (2) COPD (chronic obstructive pulmonary disease) Status: Chronic Comment: He has a history of this although he has not been on treatment. Please note he is presently on low-dose nonspecific beta-fuad. I am going to add in Advair and on-call to the OR he will receive a nebulizer treatment. Qualifiers: COPD type: unspecified COPD Qualified Code: J44.9 - Chronic obstructive pulmonary disease, unspecified COPD type (3) Chronic atrial fibrillation Status: Chronic Comment: Presently he is rate controlled. He remains on his antiarrhythmic agents. (4) Systolic and diastolic CHF, chronic Status: Chronic Comment: Peers to be well compensated and is on appropriate medication therapy to help cover for this. (5) Hyperlipidemia Status: Chronic Comment: Noted. Please note this patient is opposed to traditional pharmaceutical products to the maximal extent possible. Qualifiers: Hyperlipidemia type: pure hypercholesterolemia Qualified Code: E78.00 - Pure hypercholesterolemia (6) Anemia Status: Acute Comment: May have some element of iron deficiency but this is an acute loss after the hip fracture with pooling of the local site of the fracture. He is on iron therapy. Qualifiers: Other causes of anemia: acute posthemorrhagic (7) Femur fracture, right Status: Acute Comment: We are forced to postpone his surgery due to an issue with operating room availability. He will have the surgery as expeditiously as possible and initiate rehabilitation as expeditiously as possible. Assuming the surgery goes well he should have good rehabilitation potential Qualifiers: Encounter type: initial encounter Femur location: lesser trochanter Fracture type: closed Fracture alignment: displaced Qualified Code: S72.121A - Closed displaced fracture of lesser trochanter of right femur, initial encounter Subjective 24 Hr Interval Summary Free Text/Dictation Elderly but extremely charming gentleman reports that his pain is now under control after the most recent dosage of analgesics. Please note he is a stoic historian who does not like to use pharmaceutical treatments Respiratory: no complaints (Denies cough wheezing or shortness of breath) Cardiovascular: no complaints Gastrointestinal: no complaints Genitourinary: no complaints Exam/Review of Systems Vital Signs Vitals Vital Signs Date Time Temp Pulse Resp B/P Pulse Ox O2 Delivery O2 Flow Rate FiO2 05/25/17 07:00 98.4 67 18 115/57 94 05/24/17 20:00 Nasal Cannula 2.0 Intake and Output 05/24/17 05/24/17 05/25/17 15:00 23:00 07:00 Intake Total 500 ml 800 ml Output Total 600 ml 550 ml Balance -100 ml 250 ml Exam Constitutional: alert, oriented Head: atraumatic, normocephalic Respiratory: clear to auscultation, diminished breath sounds Cardiovascular: nl pulses, other (PMI is diffuse and laterally displaced; left upper chest wall subcu AICD device), regular rate and rhythm Gastrointestinal: nl liver, spleen, non-tender, soft Results Result Diagram: 05/24/17 0440 05/24/17 0443 Results 24 hrs Laboratory Tests Test 05/24/17 12:32 05/25/17 04:40 Troponin I 0.017 Vitamin B12 Level 634 Folate > 20.0 H Medications Medications Current Medications Morphine Sulfate (morphine) 2 mg Q3 PRN IV pain Last administered on 05/25/17 07:05; Admin Dose 2 MG; Start 05/23/17 at 15:00 Amiodarone HCl (Cordarone) 200 mg BID PO Last administered on 05/24/17 20:56; Admin Dose 200 MG; Start 05/23/17 at 21:00 Cyanocobalamin (Vitamin B12) 100 mcg DAILY PO ; Start 05/24/17 at 09:00 Ferrous Sulfate (Ferrous Sulfate (Ec)) 325 mg DAILY PO ; Start 05/24/17 at 09:00 Mexiletine HCl (Mexitil) 150 mg DAILY PO ; Start 05/24/17 at 09:00 Calcium/Vitamin D (Oyster Shell/ Vit-D (250/125)) 1 tab DAILY PO Last administered on 05/23/17 18:46; Admin Dose 1 TAB; Start 05/23/17 at 16:30 Pantoprazole (Protonix Tab) 40 mg DAILY@06 PO ; Start 05/24/17 at 06:00 Atorvastatin Calcium (Lipitor) 10 mg DAILY@21 PO Last administered on 05/24/17 20:56; Admin Dose 10 MG; Start 05/23/17 at 21:00 Beta Carotene (Ocuvite) 1 tab DAILY PO ; Start 05/24/17 at 09:00 Ondansetron HCl (Zofran Inj) 4 mg Q6H PRN IV NAUSEA AND/OR VOMITING; Start at 16:00 Acetaminophen (Tylenol Tab) 650 mg Q6H PRN PO PAIN LEVEL 1-3 OR FEVER; Start at 16:00 Acetaminophen (Tylenol Supp) 650 mg Q6H PRN [place] PAIN LEVEL 1-3 OR FEVER; Start 05/23/17 at 16:00 Morphine Sulfate (morphine) 2 mg Q4H PRN IV SEVERE PAIN LEVEL 7-10; Start 05/23 at 16:00 Docusate Sodium (Colace) 100 mg Q12H PRN PO CONSTIPATION; Start 05/23/17 at 16: 00 Carvedilol 3.125 mg 3.125 mg BID PO Last administered on 05/24/17 20:56; Admin Dose 3.125 MG; Start 05/23/17 at 21:00 Dextrose/Sodium Chloride (D5-1/2ns) 500 ml @ 75 mls/hr Q6H40M IV Last administered on 05/25/17 02:36; Admin Dose 75 MLS/HR; Start 05/24/17 at 07:00 Lisinopril (Zestril) 2.5 mg DAILY PO ; Start 05/25/17 at 09:00 RONA FERNANDO MD May 25, 2017 08:34
[2017-05-25] MEDS: MEXILETINE 150 MG CAP PO SCH (09:00)
[2017-05-25] MEDS: FERROUS SULFATE (EC) 325 MG TAB PO SCH (09:00)
[2017-05-25] MEDS: AMIODARONE 200 MG TAB PO SCH ×2 (09:00→22:22)
[2017-05-25] MEDS: CYANOCOBALAMIN 500 MCG TAB PO SCH (09:00)
[2017-05-25] MEDS: SALMETEROL/FLUTICASONE 250/50 INHA INH SCH ×2 (09:00→21:00)
[2017-05-25] MEDS: LISINOPRIL 5 MG TAB PO SCH (09:00)
[2017-05-25] MEDS: CALCIUM/VITAMIN D (250/125) TAB PO SCH (09:00)
[2017-05-25] MEDS: BETA CAROTENE/VIT C/E/MIN TAB PO SCH (09:00)
[2017-05-25] MEDS ORDERED: ETOMIDATE 20 MG INJ ONE (12:13)
[2017-05-25] MEDS ORDERED: FENTAnyl 50 MCG/ML VIAL ONE (12:13)
[2017-05-25] MEDS ORDERED: ROCURONIUM 50 MG INJ ONE (12:13)
[2017-05-25] MEDS ORDERED: MIDAZOLAM 1 MG/ML 2 ML INJ ONE (12:17)
--- NOTE | 2017-05-25 12:37 | HPN ---
Date/Time of Note Date/Time of Note DATE: 05/25/17 TIME: 12:36 Interval H&P Admission Note Pt. seen H&P reviewed: No system changes ROLA TOMLIN MD May 25, 2017 12:37
[2017-05-25] MEDS ORDERED: PHENYLephrine (100 MCG/ML) 5ML SYG ONE (12:52)
[2017-05-25] MEDS ORDERED: POLYMYXIN/BACITRACIN 1L IRRIG IRR ONE (13:14)
[2017-05-25] MEDS ORDERED: EPHEDrine SULFATE 50 MG/5 ML SYG ONE ×2 (14:08→16:13)
[2017-05-25] MEDS ORDERED: GLYCOPYRROLATE 0.4 MG INJ ONE (14:08)
[2017-05-25] MEDS ORDERED: NEOSTIGMINE 3 MG/3 ML SYRINGE ONE (14:08)
[2017-05-25] MEDS: D5W-0.45 NACL + KCL 20 MEQ 1,000 ML IV SCH ×2 (14:18→22:28)
--- NOTE | 2017-05-25 14:18 | SIPON ---
Date/Time of Note Date/Time of Note DATE: 05/25/17 TIME: 14:13 Operative Report Preoperative Diagnosis intertrochanteric & subtrochanteric fracture of Rt. hip Postoperative Diagnosis same Operation/Procedure Performed O.R.I.F of Rt. hip fracture Surgeon: ROLA TOMLIN MD Anesthesia Type: general Estimated Blood Loss: 50 - 100 ml's Transfusion Required: no Specimen: none Grafts/Implants Gamma nail Complications: no ROLA TOMLIN MD May 25, 2017 14:18
[2017-05-25] MEDS ORDERED: NACL 0.9% 3 ML SYG IV SCH (14:30)
[2017-05-25] MEDS ORDERED: morphine 2 MG INJ IV PRN (14:30)
[2017-05-25] MEDS: CEFAZOLIN 1 GM/50 ML (PMX) 50 ML IVPB SCH ×2 (14:30→22:32)
--- NOTE | 2017-05-25 15:34 | OPR ---
DATE OF OPERATION: 05/25/2017 PREOPERATIVE DIAGNOSIS: Intertrochanteric and subtrochanteric fracture of the right hip. POSTOPERATIVE DIAGNOSIS: Intertrochanteric and subtrochanteric fracture of the right hip. OPERATION PERFORMED: Open reduction and internal fixation of the right hip fracture, utilizing nail. ANESTHESIA: General anesthesia. SURGEON: Adriel Eagle MD OPERATIVE FINDINGS AT SURGERY: Under anesthesia, the patient was placed in supine position upon the fracture table. Utilizing fracture table and under fluoroscopic monitoring, preliminary manipulative reduction of the fracture was carried out until an acceptable alignment could be achieved. The usual prep and drape was done exposing the right hip and right thigh. Through a small incision over the lateral aspect of the right hip, tip of the greater trochanter was identified and through the tip, intramedullary canal was entered with the cannulated taylor and reamer guide was introduced into the intramedullary canal. At this point, opening was enlarged with the [employer] one-step drill. Measurement at this time revealed that the proper size of the nail should be 40 cm x 10 mm with the 125 degree angle. After reaming along the reamer guide, selected intramedullary nail was inserted. At this point, using the lag screw insertion guide the guidewire for lag screw was properly positioned and measurement revealed that the proper size of the lag screw should be 100 mm. After re-reaming along the guide wire, the selected lag screw in the size of 100 was inserted. At this point, in order to stabilize the system the true locking screw was inserted through the distal portion of the intramedullary amador. After confirming satisfactory alignment of the fracture and proper position of the fixation device, the insertion guides were all removed and after irrigation and hemostasis, closure of the incision was carried out using 0 Vicryl for muscle and fascia and 2-0 Vicryl for subcutaneous tissues. Final skin closure was carried out with skin vida. The usual sterile pressure dressings were applied. The patient tolerated the entire procedure very well and was sent to the recovery room in excellent condition. Dictated By: Adriel Eagle MD /fito/jena Khan#: [id number]/Document#: [id number]
[2017-05-25] MEDS ORDERED: POLYMYXIN/BACITRACIN 1L IRRIG ONE (16:23)
[2017-05-25] MEDS ORDERED: hydrALAzine 20 MG INJ IV PRN (16:30)
[2017-05-25] MEDS ORDERED: MEPERIDINE 25 MG INJ IV PRN (16:30)
[2017-05-25] MEDS ORDERED: EPHEDrine SULFATE 50 MG/5 ML SYG IV PRN ×2 (16:30)
[2017-05-25] MEDS ORDERED: LABETALOL HCL 20MG INJ IV PRN (16:30)
[2017-05-25] MEDS ORDERED: ONDANSETRON 4 MG INJ IV PRN (16:30)
[2017-05-25] MEDS ORDERED: FENTAnyl 50 MCG/ML VIAL IV PRN ×3 (16:30)
[2017-05-25] MEDS ORDERED: DIPHENHYDRAMINE 50 MG INJ IV PRN (16:30)
[2017-05-25] MEDS ORDERED: KETOROLAC 30 MG INJ IV PRN (16:30)
--- NOTE | 2017-05-25 16:39 | RADRPT ---
PROCEDURE: XR Pelvis. CLINICAL INDICATION: Pain. Postop TECHNIQUE: Single AP view of the pelvis. COMPARISON: May 23, 2017 FINDINGS: There is a right dynamic hip screw and intramedullary amador within the right femur. There has been pichardo ccessful open reduction internal fixation of a comminuted intertrochanteric femoral neck fracture. Hardware is intact. Alignment is anatomic. Postsurgical changes are noted. The remainder of the pelvis is stable and unremarkable. IMPRESSION: Successful ORIF right intertrochanteric femoral neck fracture with a right dynamic hip screw and int ramedullary amador. Anatomic alignment. Postsurgical changes. Hardware is intact. RPTAT: PP .Rose Calvo MD, MD Date Time Electronically viewed and signed by .Rose Calvo MD, on 05/25/2017 16:38 .F/
[2017-05-25] MEDS: ATORVASTATIN 10 MG TAB PO SCH (22:23)
[2017-05-26] VITALS: BP 110/53; RESP 18
[2017-05-26 00:01] VITALS: PULSE 70; RESP 17
[2017-05-26 04:00] VITALS: BP 128/55; PULSE 70; RESP 18
[2017-05-26] MEDS: CEFAZOLIN 1 GM/50 ML (PMX) 50 ML IVPB SCH (05:43)
[2017-05-26] MEDS: PANTOPRAZOLE (EC) 40 MG TAB PO SCH (05:43)
[2017-05-26 08:26] VITALS: BP 100/51; RESP 20
[2017-05-26] MEDS: LISINOPRIL 5 MG TAB PO SCH (09:00)
[2017-05-26] MEDS: SALMETEROL/FLUTICASONE 250/50 INHA INH SCH ×2 (09:07→21:23)
[2017-05-26] MEDS: CYANOCOBALAMIN 500 MCG TAB PO SCH (09:09)
[2017-05-26] MEDS: MEXILETINE 150 MG CAP PO SCH (09:09)
[2017-05-26] MEDS: FERROUS SULFATE (EC) 325 MG TAB PO SCH (09:09)
[2017-05-26] MEDS: BETA CAROTENE/VIT C/E/MIN TAB PO SCH (09:09)
[2017-05-26] MEDS: CALCIUM/VITAMIN D (250/125) TAB PO SCH (09:10)
[2017-05-26] MEDS: AMIODARONE 200 MG TAB PO SCH ×2 (09:14→21:25)
--- NOTE | 2017-05-26 09:15 | RADRPT ---
PROCEDURE: Intraoperative fluoroscopy. CLINICAL INDICATION: Intraoperative fluoroscopy. COMPARISON: None relevant listed. TECHNIQUE: Intraoperative fluoroscopy of the right hip was performed. Fluoroscopy time: 121 seconds # Series / Images: 14 FINDINGS: Intraoperative fluoroscopy was provided for surgical planning and support purposes. Following L an i ntertrochanteric screw secure secures a fracture of the greater trochanter and proximal femoral diap hysis and anatomic alignment. IMPRESSION: 1. All support lines and tubes in appropriate position. 2. Anatomic alignment of proximal right femoral fracture. RPTAT: PP Physician Paula Date Time Electronically viewed and signed by Physician Paula on 05/26/2017 09:14 LG/
[2017-05-26] MEDS: ENOXAPARIN 40 MG/0.4 ML SYG SC SCH (09:20)
--- NOTE | 2017-05-26 09:34 | PN ---
Date/Time of Note Date/Time of Note DATE: 05/26/17 TIME: 09:31 Assessment/Plan VTE Prophylaxis VTE Prophylaxis Intervention: SCD's Lines/Catheters IV Catheter Type (from [facility]): Peripheral IV Urinary Cath still in place: No Assessment/Plan Problems: (1) Status post-operative repair of hip fracture Onset Date: ~ 05/25/2017 Status: Acute Comment: Stable postoperatively. Initiate physical therapy and rehabilitation. Patient has been re-counseled on use of incentive spirometer. (2) Status post implantation of automatic cardioverter/defibrillator (AICD) Onset Date: ~ 06/2012 Status: Chronic Comment: Stable and fully operational. (3) COPD (chronic obstructive pulmonary disease) Status: Chronic Qualifiers: COPD type: unspecified COPD Qualified Code: J44.9 - Chronic obstructive pulmonary disease, unspecified COPD type (4) Chronic atrial fibrillation Status: Chronic Comment: Adequate rhythm and rate control. Please note with a COPD transition to metoprolol instead of noncardioselective beta-fuad carvedilol (5) Systolic and diastolic CHF, chronic Status: Chronic Comment: Stable and cons compensated on medication (6) Anemia Status: Acute Comment: Noted. Continue supplementation Qualifiers: Other causes of anemia: acute posthemorrhagic Subjective 24 Hr Interval Summary Free Text/Dictation Patient is stable postoperatively. He is eating breakfast and also using his incentive spirometer Constitutional: no complaints Respiratory: no complaints Cardiovascular: no complaints Gastrointestinal: no complaints Exam/Review of Systems Vital Signs Vitals Vital Signs Date Time Temp Pulse Resp B/P Pulse Ox O2 Delivery O2 Flow Rate FiO2 05/26/17 08:26 98.8 70 20 100/51 98 05/26/17 04:00 Nasal Cannula 2.0 Intake and Output 05/25/17 05/25/17 05/26/17 15:00 23:00 07:00 Intake Total 800 ml 1000 ml 1160 ml Output Total 175 ml 500 ml 1300 ml Balance 625 ml 500 ml -140 ml Exam Constitutional: alert, oriented Respiratory: clear to auscultation, normal air movement Cardiovascular: nl pulses, regular rate and rhythm Results Result Diagram: 05/24/17 0440 05/24/17 0443 Medications Medications Current Medications Morphine Sulfate (morphine) 2 mg Q3 PRN IV pain Last administered on 05/25/17t 10:23; Admin Dose 2 MG; Start 05/23/17 at 15:00 Amiodarone HCl (Cordarone) 200 mg BID PO Last administered on 05/26/17 09:14; Admin Dose 200 MG; Start 05/23/17 at 21:00 Ferrous Sulfate (Ferrous Sulfate (Ec)) 325 mg DAILY PO Last administered on 05/26 09:09; Admin Dose 325 MG; Start 05/24/17 at 09:00 Mexiletine HCl (Mexitil) 150 mg DAILY PO Last administered on 05/26/17 09:09; Admin Dose 150 MG; Start 05/24/17 at 09:00 Calcium/Vitamin D (Oyster Shell/ Vit-D (250/125)) 1 tab DAILY PO Last administered on 05/26/17 09:10; Admin Dose 1 TAB; Start 05/23/17 at 16:30 Pantoprazole (Protonix Tab) 40 mg DAILY@06 PO Last administered on 05/26/17 05: 43; Admin Dose 40 MG; Start 05/24/17 at 06:00 Atorvastatin Calcium (Lipitor) 10 mg DAILY@21 PO Last administered on 05/25/17 22:23; Admin Dose 10 MG; Start 05/23/17 at 21:00 Beta Carotene (Ocuvite) 1 tab DAILY PO Last administered on 05/26/17 09:09; Admin Dose 1 TAB; Start 05/24/17 at 09:00 Ondansetron HCl (Zofran Inj) 4 mg Q6H PRN IV NAUSEA AND/OR VOMITING Last administered on 05/25/17 15:17; Admin Dose 4 MG; Start 05/23/17 at 16:00 Acetaminophen (Tylenol Tab) 650 mg Q6H PRN PO PAIN LEVEL 1-3 OR FEVER; Start at 16:00 Acetaminophen (Tylenol Supp) 650 mg Q6H PRN [place] PAIN LEVEL 1-3 OR FEVER; Start 05/23/17 at 16:00 Morphine Sulfate (morphine) 2 mg Q4H PRN IV SEVERE PAIN LEVEL 7-10; Start 05/23 at 16:00 Docusate Sodium (Colace) 100 mg Q12H PRN PO CONSTIPATION; Start 05/23/17 at 16: 00 Lisinopril (Zestril) 2.5 mg DAILY PO ; Start 05/25/17 at 09:00 Salmeterol Xinafoate/ Fluticasone (Advair 250/50 Diskus) 1 inh BID INH Last administered on 05/26/17 09:07; Admin Dose 1 INH; Start 05/25/17 at 09:00 Cyanocobalamin 500 mcg 500 mcg DAILY PO Last administered on 05/26/17 09:09; Admin Dose 500 MCG; Start 05/25/17 at 09:00 Potassium Chloride/Dextrose/ Sod Cl (D5-1/2ns + KCl 20 Meq) 1,000 ml @ 100 mls/ hr Q10H IV Last administered on 05/25/17 22:28; Admin Dose 100 MLS/HR; Start at 14:18 Enoxaparin Sodium (Lovenox) 40 mg DAILY SC Last administered on 05/26/17 09:20 ; Admin Dose 40 MG; Start 05/26/17 at 09:00 Morphine Sulfate (morphine) 2 mg Q2H PRN IV pain; Start 05/25/17 at 14:30 Acetaminophen/ Hydrocodone Bitart ([place] (5/325)) 1 tab Q3H PRN PO PAIN; Start 05/25/17 at 14:30 Metoprolol Succinate (Toprol Xl) 25 mg BID PO ; Start 05/26/17 at 21:00 RONA FERNANDO MD May 26, 2017 09:34
[2017-05-26] MEDS: D5W-0.45 NACL + KCL 20 MEQ 1,000 ML IV SCH ×2 (09:58→19:44)
[2017-05-26] MEDS: HYDROCODONE/APAP (5/325) TAB PO PRN (12:20)
[2017-05-26 14:16] VITALS: BP 106/53; RESP 18
[2017-05-26 21:09] VITALS: BP 101/55; RESP 20
[2017-05-26] MEDS: ATORVASTATIN 10 MG TAB PO SCH (21:24)
[2017-05-26] MEDS: METOPROLOL (XL) 25 MG TAB PO SCH (21:26)
[2017-05-27 01:29] VITALS: BP 109/55; RESP 20
[2017-05-27] MEDS: D5W-0.45 NACL + KCL 20 MEQ 1,000 ML IV SCH (06:13)
[2017-05-27] MEDS: PANTOPRAZOLE (EC) 40 MG TAB PO SCH (06:13)
[2017-05-27 07:57] VITALS: BP 112/61; RESP 19
[2017-05-27 07:59] VITALS: PULSE 72
[2017-05-27] MEDS: AMIODARONE 200 MG TAB PO SCH ×2 (09:19→21:02)
[2017-05-27] MEDS: CALCIUM/VITAMIN D (250/125) TAB PO SCH (09:19)
[2017-05-27] MEDS: SALMETEROL/FLUTICASONE 250/50 INHA INH SCH ×2 (09:19→21:01)
[2017-05-27] MEDS: CYANOCOBALAMIN 500 MCG TAB PO SCH (09:19)
[2017-05-27] MEDS: FERROUS SULFATE (EC) 325 MG TAB PO SCH (09:19)
[2017-05-27] MEDS: BETA CAROTENE/VIT C/E/MIN TAB PO SCH (09:19)
[2017-05-27] MEDS: METOPROLOL (XL) 25 MG TAB PO SCH ×2 (09:20→21:00)
[2017-05-27] MEDS: MEXILETINE 150 MG CAP PO SCH (09:20)
[2017-05-27] MEDS: ENOXAPARIN 40 MG/0.4 ML SYG SC SCH (09:21)
--- NOTE | 2017-05-27 10:29 | PN ---
Date/Time of Note Date/Time of Note DATE: 05/27/17 TIME: 10:28 Assessment/Plan VTE Prophylaxis VTE Prophylaxis Intervention: LMWH Lines/Catheters IV Catheter Type (from Nrs): Peripheral IV Urinary Cath still in place: Yes Reason Cath still needed: other (indicate) Assessment/Plan Chief Complaint/Hosp Course 1. Proximal right femur fracture. Status post open reduction internal fixation on 05/25/2017. Continue postoperative care. Continue pain control. Physical therapy evaluation. 2. Atrial fibrillation. Continue beta blockers, amiodarone, and mexiletine. Rate controlled. Cardiology following. 3. Cardiomyopathy. Status post AICD. Ejection fraction of 40%. Continue beta blockers as the BP permits. 4. Essential hypertension. Continue antihypertensives. 5. Dyslipidemia. Continue statins. 6. Macrocytic anemia. No evidence of vitamin B12 and folate deficiency. 7. Fluids, electrolytes, and nutrition. Low-cholesterol diet. 8. DVT prophylaxis. Subcutaneous Lovenox. 9. Gastrointestinal prophylaxis. Proton pump inhibitors. 10. Plan. Continue pain control. Await physical therapy evaluation. Case discussed with Dr. Nugent. Problems: Subjective 24 Hr Interval Summary Free Text/Dictation Right hip pain well controlled. Exam/Review of Systems Vital Signs Vitals Vital Signs Date Time Temp Pulse Resp B/P Pulse Ox O2 Delivery O2 Flow Rate FiO2 05/27/17 07:59 72 05/27/17 07:57 98.0 19 112/61 97 05/26/17 20:00 Nasal Cannula 2.0 Intake and Output 05/26/17 05/26/17 05/27/17 15:00 23:00 07:00 Intake Total 1820 ml 1480 ml Output Total 1600 ml Balance 1820 ml -120 ml Exam General: Adequately build 87 year-old male lying in bed in no apparent distress. HEENT: Normocephalic, atraumatic. Eyes: Anicteric sclerae, conjunctivae clear. ENT: Nasal septum midline, oral mucosa moist. Neck supple, no JVD noticed. Respiratory: Bilaterally clear breath sounds. No use of accessory muscles of respiration. No adventitious breath sounds. Cardiovascular: S1, S2 heard. Grade 2/6 systolic ejection murmur. Abdomen: Soft, nontender, and nondistended. Bowel sounds positive in all 4 quadrants. Genitourinary: Deferred. Extremities: No cyanosis, no clubbing. Right hip surgical dressing clean, dry, and intact. Peripheral pulses palpable. Neurologic: Cranial nerves II through XII grossly intact. The patient is awake, alert, and oriented. Skin: Normal skin turgor. No skin rashes. Results Result Diagram: 05/24/17 0440 05/24/17 0443 Medications Medications Current Medications Morphine Sulfate (morphine) 2 mg Q3 PRN IV pain Last administered on 05/25/17 10:23; Admin Dose 2 MG; Start 05/23/17 at 15:00 Amiodarone HCl (Cordarone) 200 mg BID PO Last administered on 05/27/17 09:19; Admin Dose 200 MG; Start 05/23/17 at 21:00 Ferrous Sulfate (Ferrous Sulfate (Ec)) 325 mg DAILY PO Last administered on 05/27 09:19; Admin Dose 325 MG; Start 05/24/17 at 09:00 Mexiletine HCl (Mexitil) 150 mg DAILY PO Last administered on 05/27/17 09:20; Admin Dose 150 MG; Start 05/24/17 at 09:00 Calcium/Vitamin D (Oyster Shell/ Vit-D (250/125)) 1 tab DAILY PO Last administered on 05/27/17 09:19; Admin Dose 1 TAB; Start 05/23/17 at 16:30 Pantoprazole (Protonix Tab) 40 mg DAILY@06 PO Last administered on 05/27/17 06: 13; Admin Dose 40 MG; Start 05/24/17 at 06:00 Atorvastatin Calcium (Lipitor) 10 mg DAILY@21 PO Last administered on 05/26/17 21:24; Admin Dose 10 MG; Start 05/23/17 at 21:00 Beta Carotene (Ocuvite) 1 tab DAILY PO Last administered on 05/27/17 09:19; Admin Dose 1 TAB; Start 05/24/17 at 09:00 Ondansetron HCl (Zofran Inj) 4 mg Q6H PRN IV NAUSEA AND/OR VOMITING Last administered on 05/25/17 15:17; Admin Dose 4 MG; Start 05/23/17 at 16:00 Acetaminophen (Tylenol Tab) 650 mg Q6H PRN PO PAIN LEVEL 1-3 OR FEVER; Start at 16:00 Acetaminophen (Tylenol Supp) 650 mg Q6H PRN [place] PAIN LEVEL 1-3 OR FEVER; Start 05/23/17 at 16:00 Morphine Sulfate (morphine) 2 mg Q4H PRN IV SEVERE PAIN LEVEL 7-10; Start 05/23 at 16:00 Docusate Sodium (Colace) 100 mg Q12H PRN PO CONSTIPATION; Start 05/23/17 at 16: 00 Salmeterol Xinafoate/ Fluticasone (Advair 250/50 Diskus) 1 inh BID INH Last administered on 05/27/17 09:19; Admin Dose 1 INH; Start 05/25/17 at 09:00 Cyanocobalamin 500 mcg 500 mcg DAILY PO Last administered on 05/27/17 09:19; Admin Dose 500 MCG; Start 05/25/17 at 09:00 Potassium Chloride/Dextrose/ Sod Cl (D5-1/2ns + KCl 20 Meq) 1,000 ml @ 100 mls/ hr Q10H IV Last administered on 05/27/17 06:13; Admin Dose 100 MLS/HR; Start at 14:18 Enoxaparin Sodium (Lovenox) 40 mg DAILY SC Last administered on 05/27/17 09:21 ; Admin Dose 40 MG; Start 05/26/17 at 09:00 Morphine Sulfate (morphine) 2 mg Q2H PRN IV pain; Start 05/25/17 at 14:30 Acetaminophen/ Hydrocodone Bitart ([place] (5/325)) 1 tab Q3H PRN PO PAIN Last administered on 05/26/17 12:20; Admin Dose 1 TAB; Start 05/25/17 at 14:30 Metoprolol Succinate (Toprol Xl) 25 mg BID PO Last administered on 05/27/17 09: 20; Admin Dose 25 MG; Start 05/26/17 at 21:00 GALE PAK NP May 27, 2017 10:29
[2017-05-27 12:17] LABS: ABNORMAL IP MESSAGE 1; BASOPHILS % 0.2 % (0.0-2.0); EOSINOPHILS # 0.1 10^3/ul (0.0-0.5); EOSINOPHILS % 1.6 % (0.0-7.0); HEMATOCRIT 25.3 % (42.0-52.0); HEMOGLOBIN 8.5 g/dl (14.0-18.0); LYMPHOCYTES # 0.4 10^3/ul (0.8-2.9); LYMPHOCYTES % 6.1 % (15.0-51.0); MEAN CORPUSCULAR HEMOGLOBIN 33.6 pg (29.0-33.0); MEAN CORPUSCULAR HGB CONC 33.6 g/dl (32.0-37.0); MONOCYTE # 0.5 10^3/ul (0.3-0.9); MONOCYTES % 8.2 % (0.0-11.0); NEUTROPHILS % 83.4 % (39.0-77.0); PLATELET COUNT 114 10^3/UL (140-415); POSITIVE DIFF @See below; RED BLOOD COUNT 2.53 10^6/ul (4.70-6.10); RED CELL DISTRIBUTION WIDTH 13.2 % (11.5-14.5); WHITE BLOOD COUNT 6.2 10^3/ul (4.8-10.8)
[2017-05-27 12:43] LABS: CALCIUM 7.6 mg/dl (8.4-10.2); CREATININE 0.83 mg/dl (0.61-1.24); MAGNESIUM 1.8 mg/dl (1.7-2.5); POTASSIUM 4.2 mmol/L (3.5-5.1)
[2017-05-27 15:39] VITALS: BP 93/44; PULSE 70
[2017-05-27 19:56] VITALS: BP 97/47; RESP 18
[2017-05-27] MEDS: ATORVASTATIN 10 MG TAB PO SCH (21:02)
[2017-05-28] VITALS (10 sets, daily range): BP systolic 99–136; BP diastolic 48–65; PULSE 70–75; RESP 16–20
--- NOTE | 2017-05-28 03:18 | PN ---
DATE: 05/27/2017 SUBJECTIVE DATA: Second postoperative day. LABORATORY AND DIAGNOSTIC DATA: Postoperative x-ray shows acceptable alignment of the fracture; however, because of the nature of the fracture, weightbearing on the right lower extremity should be limited to touchdown weightbearing until otherwise ordered by Orthopedic Surgery. On 05/27/2017, postoperative hemoglobin is 8.5 and hematocrit 25.3. ASSESSMENT AND PLAN: To be mobilized as tolerated with touchdown weightbearing on the right lower extremity. Dictated By: In Cora Eagle MD /fito/serg /Document#: [id number]
[2017-05-28] MEDS: HYDROCODONE/APAP (5/325) TAB PO PRN ×3 (04:58→14:49)
[2017-05-28] MEDS: PANTOPRAZOLE (EC) 40 MG TAB PO SCH (05:00)
[2017-05-28 05:39] LABS: ABNORMAL IP MESSAGE 1; BASOPHILS % 0.2 % (0.0-2.0); EOSINOPHILS # 0.1 10^3/ul (0.0-0.5); EOSINOPHILS % 2.6 % (0.0-7.0); HEMATOCRIT 24.1 % (42.0-52.0); HEMOGLOBIN 7.9 g/dl (14.0-18.0); LYMPHOCYTES # 0.5 10^3/ul (0.8-2.9); LYMPHOCYTES % 10.8 % (15.0-51.0); MEAN CORPUSCULAR HEMOGLOBIN 33.1 pg (29.0-33.0); MEAN CORPUSCULAR HGB CONC 32.8 g/dl (32.0-37.0); MEAN CORPUSCULAR VOLUME 100.8 fl (82.0-101.0); MONOCYTE # 0.5 10^3/ul (0.3-0.9); MONOCYTES % 10.4 % (0.0-11.0); NEUTROPHILS % 75.6 % (39.0-77.0); PLATELET COUNT 118 10^3/UL (140-415); POSITIVE DIFF @See below; RED BLOOD COUNT 2.39 10^6/ul (4.70-6.10); RED CELL DISTRIBUTION WIDTH 13.1 % (11.5-14.5); WHITE BLOOD COUNT 4.5 10^3/ul (4.8-10.8)
[2017-05-28 05:49] LABS: CALCIUM 7.8 mg/dl (8.4-10.2); CREATININE 0.9 mg/dl (0.61-1.24); POTASSIUM 4.3 mmol/L (3.5-5.1)
[2017-05-28 05:58] LABS: MAGNESIUM 1.9 mg/dl (1.7-2.5); PHOSPHORUS 3.4 mg/dl (2.5-4.9)
[2017-05-28] MEDS: ENOXAPARIN 40 MG/0.4 ML SYG SC SCH (09:00)
[2017-05-28] MEDS: METOPROLOL (XL) 25 MG TAB PO SCH ×2 (09:00→21:29)
--- NOTE | 2017-05-28 09:03 | PN ---
Date/Time of Note Date/Time of Note DATE: 05/28/17 TIME: 09:01 Assessment/Plan VTE Prophylaxis VTE Prophylaxis Intervention: LMWH (May need to hold this if H&H is dropping.) Lines/Catheters [facility] Saline Lock Urinary Cath still in place: Yes Reason Cath still needed: other (indicate) Assessment/Plan Chief Complaint/Hosp Course 1. Proximal right femur fracture. Status post open reduction internal fixation on 05/25/2017. Continue postoperative care. Continue pain control. Physical therapy evaluation. 2. Atrial fibrillation. Continue beta blockers, amiodarone, and mexiletine. Rate controlled. Cardiology following. 3. Cardiomyopathy. Status post AICD. Ejection fraction of 40%. Continue beta blockers as the BP permits. 4. Essential hypertension. Continue antihypertensives. 5. Dyslipidemia. Continue statins. 6. Macrocytic anemia. No evidence of vitamin B12 and folate deficiency. 7. Fluids, electrolytes, and nutrition. Low-cholesterol diet. 8. DVT prophylaxis. Subcutaneous Lovenox (may need to hold this). 9. Gastrointestinal prophylaxis. Proton pump inhibitors. 10. Plan. Continue pain control. Await physical therapy evaluation. Repeat H& H to confirm the drop in hemoglobin. Case discussed with Dr. Nugent. Problems: Subjective 24 Hr Interval Summary Free Text/Dictation BP on the lower side. Exam/Review of Systems Vital Signs Vitals Vital Signs Date Time Temp Pulse Resp B/P Pulse Ox O2 Delivery O2 Flow Rate FiO2 05/28/17 07:27 98.6 70 16 99/50 95 05/27/17 20:00 Nasal Cannula 2.0 Intake and Output 05/27/17 05/27/17 05/28/17 15:00 23:00 07:00 Intake Total 300 ml 700 ml 540 ml Output Total 900 ml 650 ml Balance 300 ml -200 ml -110 ml Exam General: Adequately build 87 year-old male lying in bed in no apparent distress. HEENT: Normocephalic, atraumatic. Eyes: Anicteric sclerae, conjunctivae clear. ENT: Nasal septum midline, oral mucosa moist. Neck supple, no JVD noticed. Respiratory: Bilaterally clear breath sounds. No use of accessory muscles of respiration. No adventitious breath sounds. Cardiovascular: S1, S2 heard. Grade 2/6 systolic ejection murmur. Abdomen: Soft, nontender, and nondistended. Bowel sounds positive in all 4 quadrants. Genitourinary: Deferred. Extremities: No cyanosis, no clubbing. Right hip surgical dressing clean, dry, and intact. Peripheral pulses palpable. Neurologic: Cranial nerves II through XII grossly intact. The patient is awake, alert, and oriented. Skin: Normal skin turgor. No skin rashes. Results Result Diagram: 05/28/17 0449 05/28/17 0449 Results 24 hrs Laboratory Tests Test 05/27/17 11:42 05/28/17 04:49 White Blood Count 6.2 4.5 #L Red Blood Count 2.53 #L 2.39 L Hemoglobin 8.5 #L 7.9 L Hematocrit 25.3 #L 24.1 L Mean Corpuscular Volume 100.0 100.8 Mean Corpuscular Hemoglobin 33.6 H 33.1 H Mean Corpuscular Hemoglobin Concent 33.6 32.8 Red Cell Distribution Width 13.2 13.1 Platelet Count 114 L 118 L Mean Platelet Volume 11.0 H 10.0 Neutrophils % 83.4 H 75.6 Lymphocytes % 6.1 L 10.8 L Monocytes % 8.2 10.4 Eosinophils % 1.6 2.6 Basophils % 0.2 0.2 Nucleated Red Blood Cells % 0.0 0.0 Neutrophils # (Manual) 5.2 3.4 Lymphocytes # 0.4 L 0.5 L Monocytes # 0.5 0.5 Eosinophils # 0.1 0.1 Basophils # 0.0 0.0 Nucleated Red Blood Cells # 0.0 0.0 Sodium Level 134 L 138 Potassium Level 4.2 4.3 Chloride Level 103 104 Carbon Dioxide Level 27 31 Anion Gap 8 7 L Blood Urea Nitrogen 18 19 Creatinine 0.83 0.90 Glucose Level 156 112 # Calcium Level 7.6 L 7.8 L Magnesium Level 1.8 1.9 Phosphorus Level 3.4 Medications Medications Current Medications Morphine Sulfate (morphine) 2 mg Q3 PRN IV pain Last administered on 05/25/17 10:23; Admin Dose 2 MG; Start 05/23/17 at 15:00 Amiodarone HCl (Cordarone) 200 mg BID PO Last administered on 05/27/17 21:02; Admin Dose 200 MG; Start 05/23/17 at 21:00 Ferrous Sulfate (Ferrous Sulfate (Ec)) 325 mg DAILY PO Last administered on 05/27 09:19; Admin Dose 325 MG; Start 05/24/17 at 09:00 Mexiletine HCl (Mexitil) 150 mg DAILY PO Last administered on 05/27/17 09:20; Admin Dose 150 MG; Start 05/24/17 at 09:00 Calcium/Vitamin D (Oyster Shell/ Vit-D (250/125)) 1 tab DAILY PO Last administered on 05/27/17 09:19; Admin Dose 1 TAB; Start 05/23/17 at 16:30 Pantoprazole (Protonix Tab) 40 mg DAILY@06 PO Last administered on 05/28/17 05: 00; Admin Dose 40 MG; Start 05/24/17 at 06:00 Atorvastatin Calcium (Lipitor) 10 mg DAILY@21 PO Last administered on 05/27/17 21:02; Admin Dose 10 MG; Start 05/23/17 at 21:00 Beta Carotene (Ocuvite) 1 tab DAILY PO Last administered on 05/27/17 09:19; Admin Dose 1 TAB; Start 05/24/17 at 09:00 Ondansetron HCl (Zofran Inj) 4 mg Q6H PRN IV NAUSEA AND/OR VOMITING Last administered on 05/25/17 15:17; Admin Dose 4 MG; Start 05/23/17 at 16:00 Acetaminophen (Tylenol Tab) 650 mg Q6H PRN PO PAIN LEVEL 1-3 OR FEVER; Start at 16:00 Acetaminophen (Tylenol Supp) 650 mg Q6H PRN [place] PAIN LEVEL 1-3 OR FEVER; Start 05/23/17 at 16:00 Morphine Sulfate (morphine) 2 mg Q4H PRN IV SEVERE PAIN LEVEL 7-10; Start 05/23 at 16:00 Docusate Sodium (Colace) 100 mg Q12H PRN PO CONSTIPATION; Start 05/23/17 at 16: 00 Salmeterol Xinafoate/ Fluticasone (Advair 250/50 Diskus) 1 inh BID INH Last administered on 05/27/17 21:01; Admin Dose 1 INH; Start 05/25/17 at 09:00 Cyanocobalamin (Vitamin B12) 500 mcg DAILY PO Last administered on 05/27/17 09: 19; Admin Dose 500 MCG; Start 05/25/17 at 09:00 Enoxaparin Sodium (Lovenox) 40 mg DAILY SC Last administered on 05/27/17 09:21 ; Admin Dose 40 MG; Start 05/26/17 at 09:00 Morphine Sulfate (morphine) 2 mg Q2H PRN IV pain; Start 05/25/17 at 14:30 Acetaminophen/ Hydrocodone Bitart ([place] (5/325)) 1 tab Q3H PRN PO PAIN Last administered on 05/28/17 04:58; Admin Dose 1 TAB; Start 05/25/17 at 14:30 Metoprolol Succinate (Toprol Xl) 25 mg BID PO Last administered on 05/27/17 09: 20; Admin Dose 25 MG; Start 05/26/17 at 21:00 GALE PAK NP May 28, 2017 09:03
[2017-05-28 09:51] LABS: HEMATOCRIT 24.9 % (42.0-52.0); HEMOGLOBIN 8.1 g/dl (14.0-18.0)
[2017-05-28] MEDS: CALCIUM/VITAMIN D (250/125) TAB PO SCH (10:12)
[2017-05-28] MEDS: CYANOCOBALAMIN 500 MCG TAB PO SCH ×2 (10:12→10:42)
[2017-05-28] MEDS: FERROUS SULFATE (EC) 325 MG TAB PO SCH ×2 (10:12→10:42)
[2017-05-28] MEDS: AMIODARONE 200 MG TAB PO SCH ×2 (10:32→21:30)
[2017-05-28] MEDS: BETA CAROTENE/VIT C/E/MIN TAB PO SCH (10:44)
[2017-05-28] MEDS: SALMETEROL/FLUTICASONE 250/50 INHA INH SCH ×2 (10:48→21:30)
[2017-05-28] MEDS ORDERED: SOD CHLORIDE 0.9% 250 ML IV* ONE (11:29)
[2017-05-28] MEDS ORDERED: FUROSEMIDE 40 MG INJ IV SCH (11:30)
[2017-05-28 11:43] LABS: ADD UMIC YES; UR ASCORBIC ACID 40 mg/dL (NEGATIVE); UR BILIRUBIN (Dip) NEGATIVE (NEGATIVE); UR BLOOD (Dip) 3+ mg/dL (NEGATIVE); UR CLARITY SLIGHTLY CLOUDY (CLEAR); UR COLOR YELLOW (YELLOW); UR GLUCOSE (Dip) 1+ mg/dL (NEGATIVE); UR KETONES (Dip) NEGATIVE (NEGATIVE); UR LEUKOCYTE ESTERASE (Dip) NEGATIVE Leu/ul (NEGATIVE); UR MUCUS MANY /HPF (NONE SEEN); UR NITRITE (Dip) NEGATIVE (NEGATIVE); UR RBC 114 /HPF (0-5); UR SPECIFIC GRAVITY (Dip) 1.023 (1.003-1.030); UR TOTAL PROTEIN (Dip) 1+ mg/dl (NEGATIVE); UR UROBILINOGEN (Dip) 1+ mg/dL (NEGATIVE)
[2017-05-28] MEDS: MEXILETINE 150 MG CAP PO SCH (13:16)
--- NOTE | 2017-05-28 13:46 | RADRPT ---
PROCEDURE: XR Chest AP portable CLINICAL INDICATION: Infiltrates TECHNIQUE: An AP portable radiograph of the chest was submitted. COMPARISON: None. FINDINGS: Support Hardware: None Cardiovascular: A permanent pacemaker and bipolar lead are again seen to be in place. The heart is m ildly enlarged while pulmonary vasculature is upper normal. The aorta appears atherosclerotic. Lung Lewis: There is increasing atelectasis and possibly infiltrate within the left lower lobe. Pleural Spaces: A small left pleural fluid accumulation is suspected as the costophrenic angle is ob scured. Osseous Structures: The osseous elements appear rarefied. Fixation screws project to the cervical sp ine. Soft Tissues: The soft tissues appear unremarkable. IMPRESSION: 1. Permanent pacemaker and leads stable in positioning. There is persistent mild cardiomegaly with atherosclerotic changes to the aorta without CHF. 2. Worsening atelectasis and possibly infiltrate involving the left lower lobe. 3. Suspected increasing small left pleural fluid accumulation. 4. Osteoporosis with fixation screws projecting to the cervical spine. Physician Jovanni Date Time Electronically viewed and signed by Physician Jovanni on 05/28/2017 13:45 /
[2017-05-28 17:41] LABS: ABNORMAL IP MESSAGE 1; BASOPHILS % 0.2 % (0.0-2.0); EOSINOPHILS # 0.2 10^3/ul (0.0-0.5); HEMATOCRIT 27.1 % (42.0-52.0); HEMOGLOBIN 9.2 g/dl (14.0-18.0); LYMPHOCYTES # 0.4 10^3/ul (0.8-2.9); LYMPHOCYTES % 6.8 % (15.0-51.0); MEAN CORPUSCULAR HEMOGLOBIN 33.1 pg (29.0-33.0); MEAN CORPUSCULAR HGB CONC 33.9 g/dl (32.0-37.0); MEAN CORPUSCULAR VOLUME 97.5 fl (82.0-101.0); MEAN PLATELET VOLUME 9.9 fl (7.4-10.4); MONOCYTE # 0.6 10^3/ul (0.3-0.9); MONOCYTES % 9.2 % (0.0-11.0); NEUTROPHILS % 80.1 % (39.0-77.0); PLATELET COUNT 138 10^3/UL (140-415); POSITIVE DIFF @See below; RED BLOOD COUNT 2.78 10^6/ul (4.70-6.10); RED CELL DISTRIBUTION WIDTH 13.9 % (11.5-14.5)
[2017-05-28] MEDS: ATORVASTATIN 10 MG TAB PO SCH (21:27)
[2017-05-29] MEDS: HYDROCODONE/APAP (5/325) TAB PO PRN ×2 (00:41→08:51)
[2017-05-29 02:04] VITALS: BP 101/54; RESP 19
[2017-05-29 05:35] LABS: ABNORMAL IP MESSAGE 1; BASOPHILS % 0.2 % (0.0-2.0); EOSINOPHILS # 0.2 10^3/ul (0.0-0.5); EOSINOPHILS % 3.7 % (0.0-7.0); HEMATOCRIT 27.9 % (42.0-52.0); HEMOGLOBIN 9.3 g/dl (14.0-18.0); LYMPHOCYTES # 0.5 10^3/ul (0.8-2.9); MEAN CORPUSCULAR HEMOGLOBIN 33.1 pg (29.0-33.0); MEAN CORPUSCULAR HGB CONC 33.3 g/dl (32.0-37.0); MEAN CORPUSCULAR VOLUME 99.3 fl (82.0-101.0); MEAN PLATELET VOLUME 9.5 fl (7.4-10.4); MONOCYTE # 0.6 10^3/ul (0.3-0.9); MONOCYTES % 10.1 % (0.0-11.0); NEUTROPHILS % 76.5 % (39.0-77.0); PLATELET COUNT 154 10^3/UL (140-415); POSITIVE DIFF @See below; RED BLOOD COUNT 2.81 10^6/ul (4.70-6.10); RED CELL DISTRIBUTION WIDTH 14.1 % (11.5-14.5); WHITE BLOOD COUNT 5.5 10^3/ul (4.8-10.8)
[2017-05-29 06:02] LABS: MAGNESIUM 1.8 mg/dl (1.7-2.5); PHOSPHORUS 3.3 mg/dl (2.5-4.9)
[2017-05-29 06:13] LABS: CALCIUM 7.9 mg/dl (8.4-10.2); CREATININE 0.85 mg/dl (0.61-1.24); POTASSIUM 3.9 mmol/L (3.5-5.1)
[2017-05-29] MEDS: PANTOPRAZOLE (EC) 40 MG TAB PO SCH (06:20)
[2017-05-29 08:09] VITALS: BP 106/52; RESP 20
[2017-05-29] MEDS: SALMETEROL/FLUTICASONE 250/50 INHA INH SCH ×2 (08:48→21:31)
[2017-05-29] MEDS: BETA CAROTENE/VIT C/E/MIN TAB PO SCH (08:50)
[2017-05-29] MEDS: AMIODARONE 200 MG TAB PO SCH ×2 (08:50→21:30)
[2017-05-29] MEDS: MEXILETINE 150 MG CAP PO SCH (08:50)
[2017-05-29] MEDS: METOPROLOL (XL) 25 MG TAB PO SCH ×2 (08:52→21:31)
[2017-05-29] MEDS: CALCIUM/VITAMIN D (250/125) TAB PO SCH (08:52)
[2017-05-29 10:54] LABS: IRON 24 ug/dl (35-150)
[2017-05-29 11:03] LABS: TOTAL IRON BINDING CAPACITY 184 ug/dl (241-421)
[2017-05-29] MEDS: ENOXAPARIN 40 MG/0.4 ML SYG SC SCH (11:56)
--- NOTE | 2017-05-29 12:23 | PN ---
Date/Time of Note Date/Time of Note DATE: 05/29/17 TIME: 12:19 Assessment/Plan VTE Prophylaxis VTE Prophylaxis Intervention: LMWH Lines/Catheters IV Catheter Type (from Nrs): Saline Lock Urinary Cath still in place: Yes Reason Cath still needed: other (indicate) Assessment/Plan Chief Complaint/Hosp Course 1. Proximal right femur fracture. Status post open reduction internal fixation on 05/25/2017. Continue postoperative care. Continue pain control. Physical therapy evaluation. 2. Atrial fibrillation. Continue beta blockers, amiodarone, and mexiletine. Rate controlled. Cardiology following. 3. Cardiomyopathy. Status post AICD. Ejection fraction of 40%. Continue beta blockers as the BP permits. 4. Essential hypertension. Continue antihypertensives. 5. Dyslipidemia. Continue statins. 6. Macrocytic anemia. No evidence of vitamin B12 and folate deficiency. Underlying iron deficiency. Will start the patient on iron supplements. 7. Fluids, electrolytes, and nutrition. Low-cholesterol diet. 8. DVT prophylaxis. Subcutaneous Lovenox. 9. Gastrointestinal prophylaxis. Proton pump inhibitors. 10. Plan. Continue pain control. Pending acute rehabilitation evaluation. Case discussed with Dr. Nugent. Problems: Subjective 24 Hr Interval Summary Free Text/Dictation Was OOB with PT today. Exam/Review of Systems Vital Signs Vitals Vital Signs Date Time Temp Pulse Resp B/P Pulse Ox O2 Delivery O2 Flow Rate FiO2 05/29/17 08:09 97.6 69 20 106/52 99 05/28/17 22:21 Room Air 05/28/17 20:00 2.0 Intake and Output 05/28/17 05/28/17 05/29/17 15:00 23:00 07:00 Intake Total 300 ml 400 ml Output Total 900 ml 900 ml Balance -600 ml -500 ml Exam General: Adequately build 87 year-old male lying in bed in no apparent distress. HEENT: Normocephalic, atraumatic. Eyes: Anicteric sclerae, conjunctivae clear. ENT: Nasal septum midline, oral mucosa moist. Neck supple, no JVD noticed. Respiratory: Bilaterally clear breath sounds. No use of accessory muscles of respiration. No adventitious breath sounds. Cardiovascular: S1, S2 heard. Grade 2/6 systolic ejection murmur. Abdomen: Soft, nontender, and nondistended. Bowel sounds positive in all 4 quadrants. Genitourinary: Deferred. Extremities: No cyanosis, no clubbing. Right hip surgical dressing clean, dry, and intact. Peripheral pulses palpable. Neurologic: Cranial nerves II through XII grossly intact. The patient is awake, alert, and oriented. Skin: Normal skin turgor. No skin rashes. Results Result Diagram: 05/29/17 0458 05/29/17 0458 Results 24 hrs Laboratory Tests Test 05/28/17 17:33 05/29/17 04:58 White Blood Count 6.0 # 5.5 Red Blood Count 2.78 L 2.81 L Hemoglobin 9.2 L 9.3 L Hematocrit 27.1 L 27.9 L Mean Corpuscular Volume 97.5 99.3 Mean Corpuscular Hemoglobin 33.1 H 33.1 H Mean Corpuscular Hemoglobin Concent 33.9 33.3 Red Cell Distribution Width 13.9 14.1 Platelet Count 138 L 154 Mean Platelet Volume 9.9 9.5 Neutrophils % 80.1 H 76.5 Lymphocytes % 6.8 L 9.0 L Monocytes % 9.2 10.1 Eosinophils % 3.0 3.7 Basophils % 0.2 0.2 Nucleated Red Blood Cells % 0.0 0.0 Neutrophils # (Manual) 4.8 4.2 Lymphocytes # 0.4 L 0.5 L Monocytes # 0.6 0.6 Eosinophils # 0.2 0.2 Basophils # 0.0 0.0 Nucleated Red Blood Cells # 0.0 0.0 Sodium Level 135 Potassium Level 3.9 Chloride Level 100 Carbon Dioxide Level 31 Anion Gap 8 Blood Urea Nitrogen 20 Creatinine 0.85 Glucose Level 105 Calcium Level 7.9 L Phosphorus Level 3.3 Magnesium Level 1.8 Iron Level 24 L Total Iron Binding Capacity 184 L Percent Iron Saturation 13 L Ferritin 155.0 Medications Medications Current Medications Morphine Sulfate (morphine) 2 mg Q3 PRN IV pain Last administered on 05/25/17 10:23; Admin Dose 2 MG; Start 05/23/17 at 15:00 Amiodarone HCl (Cordarone) 200 mg BID PO Last administered on 05/29/17 08:50; Admin Dose 200 MG; Start 05/23/17 at 21:00 Ferrous Sulfate (Ferrous Sulfate (Ec)) 325 mg DAILY PO Last administered on 05/28 10:42; Admin Dose 325 MG; Start 05/24/17 at 09:00 Mexiletine HCl (Mexitil) 150 mg DAILY PO Last administered on 05/29/17 08:50; Admin Dose 150 MG; Start 05/24/17 at 09:00 Calcium/Vitamin D (Oyster Shell/ Vit-D (250/125)) 1 tab DAILY PO Last administered on 05/29/17 08:52; Admin Dose 1 TAB; Start 05/23/17 at 16:30 Pantoprazole (Protonix Tab) 40 mg DAILY@06 PO Last administered on 05/29/17 06: 20; Admin Dose 40 MG; Start 05/24/17 at 06:00 Atorvastatin Calcium (Lipitor) 10 mg DAILY@21 PO Last administered on 05/28/17 21:27; Admin Dose 10 MG; Start 05/23/17 at 21:00 Beta Carotene (Ocuvite) 1 tab DAILY PO Last administered on 05/29/17 08:50; Admin Dose 1 TAB; Start 05/24/17 at 09:00 Ondansetron HCl (Zofran Inj) 4 mg Q6H PRN IV NAUSEA AND/OR VOMITING Last administered on 05/25/17 15:17; Admin Dose 4 MG; Start 05/23/17 at 16:00 Acetaminophen (Tylenol Tab) 650 mg Q6H PRN PO PAIN LEVEL 1-3 OR FEVER; Start at 16:00 Acetaminophen (Tylenol Supp) 650 mg Q6H PRN [place] PAIN LEVEL 1-3 OR FEVER; Start 05/23/17 at 16:00 Morphine Sulfate (morphine) 2 mg Q4H PRN IV SEVERE PAIN LEVEL 7-10; Start 05/23 at 16:00 Docusate Sodium (Colace) 100 mg Q12H PRN PO CONSTIPATION; Start 05/23/17 at 16: 00 Salmeterol Xinafoate/ Fluticasone (Advair 250/50 Diskus) 1 inh BID INH Last administered on 05/29/17 08:48; Admin Dose 1 INH; Start 05/25/17 at 09:00 Cyanocobalamin (Vitamin B12) 500 mcg DAILY PO Last administered on 05/28/17 10: 42; Admin Dose 500 MCG; Start 05/25/17 at 09:00 Enoxaparin Sodium (Lovenox) 40 mg DAILY SC Last administered on 05/29/17 11:56 ; Admin Dose 40 MG; Start 05/26/17 at 09:00; Status Future hold Morphine Sulfate (morphine) 2 mg Q2H PRN IV pain; Start 05/25/17 at 14:30 Acetaminophen/ Hydrocodone Bitart ([place] (5/325)) 1 tab Q3H PRN PO PAIN Last administered on 05/29/17 08:51; Admin Dose 1 TAB; Start 05/25/17 at 14:30 Metoprolol Succinate (Toprol Xl) 25 mg BID PO Last administered on 05/29/17 08: 52; Admin Dose 25 MG; Start 05/26/17 at 21:00 GALE PAK NP May 29, 2017 12:22
[2017-05-29] MEDS: BALSAM PERU/CASTOR OIL 60 GM TUBE TOP SCH ×2 (15:26→21:31)
--- NOTE | 2017-05-29 15:39 | CONS ---
Date/Time of Note Date/Time of Note DATE: 05/29/17 TIME: 15:37 Assessment/Plan Assessment/Plan Chief Complaint/Hosp Course IMPRESSION: 1. Preoperative evaluation prior to possible open reduction and internal fixation of hip.-negative trop x 3. NO cp. EF 40%. NO contraindicated valve lesions. Thus no contraindication to proceeding to or at this time on current medications without further non-invasive evaluation but given low EF and h/o arrythmias is at high risk. -Now post op s/p LE ORIF 2. Status post fall, mechanical by description. 3. History of automatic implantable cardioverter defibrillator on anti- arrythmics 4. Presumed cardiomyopathy. 5. History of atrial fibrillation. 6. Hip fracture. 7. Dyslipidemia. 8. Cardiomyopathy-EF 40% RECC: -Contnue BB -Add low dose ACEI afterload reduction -follow volume status clsoely -Continue amiodarone/mexilitene Problems: Consultation Date/Type/Reason Admit Date/Time May 23, 2017 at 10:26 Initial Consult Date 05/24/2017 Type of Consultation: cardiology Reason for Consultation pre-op/cardiomyopathy Referring Provider: ZION CLEMENT Exam/Review of Systems Vital Signs Vitals Vital Signs Date Time Temp Pulse Resp B/P Pulse Ox O2 Delivery O2 Flow Rate FiO2 05/29/17 09:00 2.0 05/29/17 08:09 97.6 69 20 106/52 99 05/28/17 22:21 Room Air Intake and Output 05/28/17 05/28/17 05/29/17 14:59 22:59 06:59 Intake Total 300 ml 400 ml Output Total 900 ml 900 ml Balance -600 ml -500 ml Exam Review of Systems: CONSTITUTIONAL: No fevers, chills. PULMONARY: No sob CARDIOVASCULAR: No chest pain/palpitations GASTROINTESTINAL: No nausea/vomiting. GENITOURINARY: No hematuria/dysuria. MUSCULOSKELETAL: No myagias/arthalgias. PSYCHIATRIC: The patient denies depression. NEUROLOGIC: No weakness Constitutional: alert Psych: no complaints Head: normocephalic ENMT: mucosa pink and moist Neck: jvd (9 cm water), supple Respiratory: diminished breath sounds (at bases/B) Cardiovascular: regular rate and rhythm Gastrointestinal: non-tender, soft Musculoskeletal: muscle weakness (generalized mild ) Extremities: edema (trace/B) Neurological: other (NO focal deficits) Results Result Diagram: 05/29/17 0458 05/29/17 0458 Results 24 hrs Laboratory Tests Test 05/28/17 17:33 05/29/17 04:58 White Blood Count 6.0 # 5.5 Red Blood Count 2.78 L 2.81 L Hemoglobin 9.2 L 9.3 L Hematocrit 27.1 L 27.9 L Mean Corpuscular Volume 97.5 99.3 Mean Corpuscular Hemoglobin 33.1 H 33.1 H Mean Corpuscular Hemoglobin Concent 33.9 33.3 Red Cell Distribution Width 13.9 14.1 Platelet Count 138 L 154 Mean Platelet Volume 9.9 9.5 Neutrophils % 80.1 H 76.5 Lymphocytes % 6.8 L 9.0 L Monocytes % 9.2 10.1 Eosinophils % 3.0 3.7 Basophils % 0.2 0.2 Nucleated Red Blood Cells % 0.0 0.0 Neutrophils # (Manual) 4.8 4.2 Lymphocytes # 0.4 L 0.5 L Monocytes # 0.6 0.6 Eosinophils # 0.2 0.2 Basophils # 0.0 0.0 Nucleated Red Blood Cells # 0.0 0.0 Sodium Level 135 Potassium Level 3.9 Chloride Level 100 Carbon Dioxide Level 31 Anion Gap 8 Blood Urea Nitrogen 20 Creatinine 0.85 Glucose Level 105 Calcium Level 7.9 L Phosphorus Level 3.3 Magnesium Level 1.8 Iron Level 24 L Total Iron Binding Capacity 184 L Percent Iron Saturation 13 L Ferritin 155.0 Medications Medications Current Medications Morphine Sulfate (morphine) 2 mg Q3 PRN IV pain Last administered on 05/25/17 10:23; Admin Dose 2 MG; Start 05/23/17 at 15:00 Amiodarone HCl (Cordarone) 200 mg BID PO Last administered on 05/29/17 08:50; Admin Dose 200 MG; Start 05/23/17 at 21:00 Ferrous Sulfate (Ferrous Sulfate (Ec)) 325 mg DAILY PO Last administered on 05/28 10:42; Admin Dose 325 MG; Start 05/24/17 at 09:00 Mexiletine HCl (Mexitil) 150 mg DAILY PO Last administered on 05/29/17 08:50; Admin Dose 150 MG; Start 05/24/17 at 09:00 Calcium/Vitamin D (Oyster Shell/ Vit-D (250/125)) 1 tab DAILY PO Last administered on 05/29/17 08:52; Admin Dose 1 TAB; Start 05/23/17 at 16:30 Pantoprazole (Protonix Tab) 40 mg DAILY@06 PO Last administered on 05/29/17 06: 20; Admin Dose 40 MG; Start 05/24/17 at 06:00 Atorvastatin Calcium (Lipitor) 10 mg DAILY@21 PO Last administered on 05/28/17 21:27; Admin Dose 10 MG; Start 05/23/17 at 21:00 Beta Carotene (Ocuvite) 1 tab DAILY PO Last administered on 05/29/17 08:50; Admin Dose 1 TAB; Start 05/24/17 at 09:00 Ondansetron HCl (Zofran Inj) 4 mg Q6H PRN IV NAUSEA AND/OR VOMITING Last administered on 05/25/17 15:17; Admin Dose 4 MG; Start 05/23/17 at 16:00 Acetaminophen (Tylenol Tab) 650 mg Q6H PRN PO PAIN LEVEL 1-3 OR FEVER; Start at 16:00 Acetaminophen (Tylenol Supp) [address] PAIN LEVEL 1-3 OR FEVER; Start 05/23/17 at 16:00 Morphine Sulfate (morphine) 2 mg Q4H PRN IV SEVERE PAIN LEVEL 7-10; Start 05/23 at 16:00 Docusate Sodium (Colace) 100 mg Q12H PRN PO CONSTIPATION; Start 05/23/17 at 16: 00 Salmeterol Xinafoate/ Fluticasone (Advair 250/50 Diskus) 1 inh BID INH Last administered on 05/29/17 08:48; Admin Dose 1 INH; Start 05/25/17 at 09:00 Cyanocobalamin (Vitamin B12) 500 mcg DAILY PO Last administered on 05/28/17 10: 42; Admin Dose 500 MCG; Start 05/25/17 at 09:00 Enoxaparin Sodium (Lovenox) 40 mg DAILY SC Last administered on 05/29/17 11:56 ; Admin Dose 40 MG; Start 05/26/17 at 09:00; Status Future hold Morphine Sulfate (morphine) 2 mg Q2H PRN IV pain; Start 05/25/17 at 14:30 Acetaminophen/ Hydrocodone Bitart ([place] (5/325)) 1 tab Q3H PRN PO PAIN Last administered on 05/29/17 08:51; Admin Dose 1 TAB; Start 05/25/17 at 14:30 Metoprolol Succinate 25 mg 25 mg BID PO Last administered on 05/29/17 08:52; Admin Dose 25 MG; Start 05/26/17 at 21:00 Ferric Sodium Gluconate Complex/ Sodium Chloride (Ferrlecit/NS) 110 ml @ 100 mls/hr Q24H IVPB ; Start 05/29/17 at 14:00; Stop 05/31/17 at 15:05 VEDA GARCES May 29, 2017 15:39
[2017-05-29] MEDS: SOD FERRIC GLUC COMPLX 125 MG in SOD CHLORIDE 0.9% 100 ML IVPB SCH (17:04)
[2017-05-29 21:12] VITALS: BP 105/51; RESP 20
[2017-05-29] MEDS: ATORVASTATIN 10 MG TAB PO SCH (21:30)
[2017-05-30 02:00] VITALS: BP 108/54; RESP 19
[2017-05-30] MEDS: HYDROCODONE/APAP (5/325) TAB PO PRN ×4 (03:04→20:36)
[2017-05-30] MEDS: PANTOPRAZOLE (EC) 40 MG TAB PO SCH (05:37)
[2017-05-30 07:58] LABS: ABNORMAL IP MESSAGE 1; BASOPHILS % 0.2 % (0.0-2.0); EOSINOPHILS # 0.2 10^3/ul (0.0-0.5); EOSINOPHILS % 3.1 % (0.0-7.0); HEMATOCRIT 28.5 % (42.0-52.0); HEMOGLOBIN 9.1 g/dl (14.0-18.0); LYMPHOCYTES # 0.4 10^3/ul (0.8-2.9); LYMPHOCYTES % 7.5 % (15.0-51.0); MEAN CORPUSCULAR HEMOGLOBIN 31.3 pg (29.0-33.0); MEAN CORPUSCULAR HGB CONC 31.9 g/dl (32.0-37.0); MEAN CORPUSCULAR VOLUME 97.9 fl (82.0-101.0); MEAN PLATELET VOLUME 9.9 fl (7.4-10.4); MONOCYTE # 0.5 10^3/ul (0.3-0.9); MONOCYTES % 9.2 % (0.0-11.0); NEUTROPHILS % 79.5 % (39.0-77.0); PLATELET COUNT 169 10^3/UL (140-415); POSITIVE DIFF @See below; RED BLOOD COUNT 2.91 10^6/ul (4.70-6.10); RED CELL DISTRIBUTION WIDTH 13.8 % (11.5-14.5); WHITE BLOOD COUNT 5.8 10^3/ul (4.8-10.8)
[2017-05-30 08:03] VITALS: BP 112/53; RESP 20
[2017-05-30 08:31] LABS: CREATININE 0.71 mg/dl (0.61-1.24); POTASSIUM 3.8 mmol/L (3.5-5.1)
[2017-05-30 08:38] LABS: MAGNESIUM 1.9 mg/dl (1.7-2.5)
[2017-05-30] MEDS: SALMETEROL/FLUTICASONE 250/50 INHA INH SCH ×2 (09:27→20:36)
[2017-05-30] MEDS: FERROUS SULFATE (EC) 325 MG TAB PO SCH (09:29)
[2017-05-30] MEDS: DOCUSATE SODIUM 100 MG CAP PO PRN (09:29)
[2017-05-30] MEDS: CALCIUM/VITAMIN D (250/125) TAB PO SCH (09:29)
[2017-05-30] MEDS: MEXILETINE 150 MG CAP PO SCH (09:29)
[2017-05-30] MEDS: BETA CAROTENE/VIT C/E/MIN TAB PO SCH (09:29)
[2017-05-30] MEDS: CYANOCOBALAMIN 500 MCG TAB PO SCH (09:29)
[2017-05-30] MEDS: LISINOPRIL 5 MG TAB PO SCH (09:31)
[2017-05-30] MEDS: METOPROLOL (XL) 25 MG TAB PO SCH ×2 (09:32→20:37)
[2017-05-30] MEDS: AMIODARONE 200 MG TAB PO SCH ×2 (09:32→20:37)
[2017-05-30] MEDS: ENOXAPARIN 40 MG/0.4 ML SYG SC SCH (09:40)
[2017-05-30] MEDS: BALSAM PERU/CASTOR OIL 60 GM TUBE TOP SCH ×2 (09:43→20:36)
--- NOTE | 2017-05-30 13:15 | RADRPT ---
PROCEDURE: XR Chest. CLINICAL INDICATION: Follow-up left-sided atelectasis TECHNIQUE: Single frontal view of the chest was obtained COMPARISON: 05/28/2017 FINDINGS: See impression. IMPRESSION: Stable retrocardiac and left lung base opacity suggestive of atelectasis versus retained secretions. Superimposed infection to be determined clinically. Overall, no convincing interval change compar ed to chest radiograph of 2 days prior. RPTAT: EE Rosa Hope Physician Date Time Electronically viewed and signed by Rosa Hope Physician on 05/30/2017 13:15 /
[2017-05-30] MEDS: SOD FERRIC GLUC COMPLX 125 MG in SOD CHLORIDE 0.9% 100 ML IVPB SCH (14:18)
[2017-05-30 14:51] VITALS: BP 124/57; RESP 20
--- NOTE | 2017-05-30 15:39 | PDOCDIS ---
Discharge Instructions DIAGNOSIS Discharge Diagnosis Right femoral fracture. S/P ORIF CONDITION Patient Condition: Stable HOME CARE INSTRUCTIONS: Diet Instructions: Low Fat /Cholesterol OTHER ORDERS: Other Orders: 1. Medications as per med reconciliation. 2. Low cholesterol diet. 3. Activities as per the rehab team. GALE PAK NP May 30, 2017 15:39
[2017-05-30] MEDS ORDERED: LISI-313 PO (15:41)
[2017-05-30] MEDS ORDERED: ENOX40DI12 SC (15:41)
[2017-05-30] MEDS ORDERED: METO25TA7 PO (15:41)
--- NOTE | 2017-05-30 18:33 | CONS ---
Date/Time of Note Date/Time of Note DATE: 05/30/17 TIME: 18:30 Assessment/Plan Assessment/Plan Chief Complaint/Hosp Course IMPRESSION: 1. Preoperative evaluation prior to possible open reduction and internal fixation of hip.-negative trop x 3. NO cp. EF 40%. NO contraindicated valve lesions. Thus no contraindication to proceeding to or at this time on current medications without further non-invasive evaluation but given low EF and h/o arrythmias is at high risk. -Now post op s/p LE ORIF 2. Status post fall, mechanical by description. 3. History of automatic implantable cardioverter defibrillator on anti- arrythmics 4. Presumed cardiomyopathy. 5. History of atrial fibrillation. 6. Hip fracture. 7. Dyslipidemia. 8. Cardiomyopathy-EF 40% 9. Hyperthyroid by TSH/FT4 this admit RECC: -Continue BB -Add low dose ACEI afterload reduction -follow volume status clsoely -Continue mexilitene -Will continue amio for now and obtain records from prior cards to better understand what malignant arythmias are being treated and thus ability to hold amio and assess for reolution of hypethryoid state or need for further treatment Problems: Consultation Date/Type/Reason Admit Date/Time May 23, 2017 at 10:26 Initial Consult Date 05/24/2017 Type of Consultation: cardiology Reason for Consultation cardiomyopathy Referring Provider: ZION CLEMENT Exam/Review of Systems Vital Signs Vitals Vital Signs Date Time Temp Pulse Resp B/P Pulse Ox O2 Delivery O2 Flow Rate FiO2 05/30/17 14:51 97.9 62 20 124/57 99 05/29/17 09:00 2.0 05/28/17 22:21 Room Air Intake and Output 05/29/17 05/29/17 05/30/17 14:59 22:59 06:59 Intake Total 560 ml 380 ml Output Total 400 ml 620 ml Balance 160 ml -240 ml Exam Review of Systems: CONSTITUTIONAL: No fevers, chills. PULMONARY: No sob CARDIOVASCULAR: No chest pain/palpitations GASTROINTESTINAL: No nausea/vomiting. GENITOURINARY: No hematuria/dysuria. MUSCULOSKELETAL: No myagias/arthalgias. PSYCHIATRIC: The patient denies depression. NEUROLOGIC: No weakness Constitutional: alert, oriented Psych: no complaints Head: normocephalic ENMT: mucosa pink and moist Neck: jvd (8-9 cm water), supple Respiratory: diminished breath sounds (at bases/B) Cardiovascular: regular rate and rhythm Gastrointestinal: non-tender, soft Musculoskeletal: muscle tone (normal) Extremities: edema (none) Neurological: other (No focal deficits) Results Result Diagram: 05/30/17 0740 05/30/17 0740 Results 24 hrs Laboratory Tests Test 05/30/17 07:11 05/30/17 07:36 05/30/17 07:40 Lab Scanned Report BLOOD TRANSFUSION Free Thyroxine 3.13 H White Blood Count 5.8 Red Blood Count 2.91 L Hemoglobin 9.1 L Hematocrit 28.5 L Mean Corpuscular Volume 97.9 Mean Corpuscular Hemoglobin 31.3 Mean Corpuscular Hemoglobin Concent 31.9 L Red Cell Distribution Width 13.8 Platelet Count 169 Mean Platelet Volume 9.9 Neutrophils % 79.5 H Lymphocytes % 7.5 L Monocytes % 9.2 Eosinophils % 3.1 Basophils % 0.2 Nucleated Red Blood Cells % 0.0 Neutrophils # (Manual) 4.6 Lymphocytes # 0.4 L Monocytes # 0.5 Eosinophils # 0.2 Basophils # 0.0 Nucleated Red Blood Cells # 0.0 Sodium Level 136 Potassium Level 3.8 Chloride Level 103 Carbon Dioxide Level 30 Anion Gap 7 L Blood Urea Nitrogen 21 H Creatinine 0.71 Glucose Level 100 Calcium Level 8.0 L Phosphorus Level 3.0 Magnesium Level 1.9 Medications Medications Current Medications Morphine Sulfate (morphine) 2 mg Q3 PRN IV pain Last administered on 05/25/17 10:23; Admin Dose 2 MG; Start 05/23/17 at 15:00 Amiodarone HCl (Cordarone) 200 mg BID PO Last administered on 05/30/17 09:32; Admin Dose 200 MG; Start 05/23/17 at 21:00 Ferrous Sulfate (Ferrous Sulfate (Ec)) 325 mg DAILY PO Last administered on 05/30 09:29; Admin Dose 325 MG; Start 05/24/17 at 09:00 Mexiletine HCl (Mexitil) 150 mg DAILY PO Last administered on 05/30/17 09:29; Admin Dose 150 MG; Start 05/24/17 at 09:00 Calcium/Vitamin D (Oyster Shell/ Vit-D (250/125)) 1 tab DAILY PO Last administered on 05/30/17 09:29; Admin Dose 1 TAB; Start 05/23/17 at 16:30 Atorvastatin Calcium (Lipitor) 10 mg DAILY@21 PO Last administered on 05/29/17 21:30; Admin Dose 10 MG; Start 05/23/17 at 21:00 Beta Carotene (Ocuvite) 1 tab DAILY PO Last administered on 05/30/17 09:29; Admin Dose 1 TAB; Start 05/24/17 at 09:00 Ondansetron HCl (Zofran Inj) 4 mg Q6H PRN IV NAUSEA AND/OR VOMITING Last administered on 05/25/17 15:17; Admin Dose 4 MG; Start 05/23/17 at 16:00 Acetaminophen (Tylenol Tab) 650 mg Q6H PRN PO PAIN LEVEL 1-3 OR FEVER; Start at 16:00 Acetaminophen (Tylenol Supp) 650 mg Q6H PRN [place] PAIN LEVEL 1-3 OR FEVER; Start 05/23/17 at 16:00 Morphine Sulfate (morphine) 2 mg Q4H PRN IV SEVERE PAIN LEVEL 7-10; Start 05/23 at 16:00 Docusate Sodium (Colace) 100 mg Q12H PRN PO CONSTIPATION Last administered on 09:29; Admin Dose 100 MG; Start 05/23/17 at 16:00 Salmeterol Xinafoate/ Fluticasone (Advair 250/50 Diskus) 1 inh BID INH Last administered on 05/30/17 09:27; Admin Dose 1 INH; Start 05/25/17 at 09:00 Cyanocobalamin (Vitamin B12) 500 mcg DAILY PO Last administered on 05/30/17 09: 29; Admin Dose 500 MCG; Start 05/25/17 at 09:00 Enoxaparin Sodium (Lovenox) 40 mg DAILY SC Last administered on 05/30/17 09:40 ; Admin Dose 40 MG; Start 05/26/17 at 09:00; Status Future hold Morphine Sulfate (morphine) 2 mg Q2H PRN IV pain; Start 05/25/17 at 14:30 Acetaminophen/ Hydrocodone Bitart ([place] (5/325)) 1 tab Q3H PRN PO PAIN Last administered on 05/30/17 15:23; Admin Dose 1 TAB; Start 05/25/17 at 14:30 Metoprolol Succinate 25 mg 25 mg BID PO Last administered on 05/30/17 09:32; Admin Dose 25 MG; Start 05/26/17 at 21:00 Ferric Sodium Gluconate Complex/ Sodium Chloride (Ferrlecit/NS) 110 ml @ 100 mls/hr Q24H IVPB Last administered on 05/30/17 14:18; Admin Dose 100 MLS/HR; Start 05/29/17 at 14:00; Stop 05/31/17 at 15:05 Lisinopril (Zestril) 2.5 mg DAILY PO Last administered on 05/30/17 09:31; Admin Dose 2.5 MG; Start 05/30/17 at 09:00 VEDA GARCES May 30, 2017 18:33
[2017-05-30 20:31] VITALS: BP 115/54; PULSE 70; RESP 18
[2017-05-30] MEDS: ATORVASTATIN 10 MG TAB PO SCH (20:36)
[2017-05-30] MEDS ORDERED: FERROUS FUMARATE (SR) TAB PO SCH (21:00)
[2017-05-31 02:00] VITALS: BP 113/54; RESP 18
[2017-05-31] MEDS: HYDROCODONE/APAP (5/325) TAB PO PRN ×2 (02:38→11:05)
[2017-05-31 07:00] VITALS: BP 100/51; RESP 18
[2017-05-31] MEDS: METOPROLOL (XL) 25 MG TAB PO SCH (09:00)
[2017-05-31] MEDS: LISINOPRIL 5 MG TAB PO SCH (09:00)
[2017-05-31] MEDS: MEXILETINE 150 MG CAP PO SCH (09:09)
[2017-05-31] MEDS: AMIODARONE 200 MG TAB PO SCH (09:10)
[2017-05-31] MEDS: CALCIUM/VITAMIN D (250/125) TAB PO SCH (09:10)
[2017-05-31] MEDS: FERROUS SULFATE (EC) 325 MG TAB PO SCH (09:10)
[2017-05-31] MEDS: SALMETEROL/FLUTICASONE 250/50 INHA INH SCH (09:13)
[2017-05-31] MEDS: ENOXAPARIN 40 MG/0.4 ML SYG SC SCH (09:13)
[2017-05-31] MEDS: BALSAM PERU/CASTOR OIL 60 GM TUBE TOP SCH (09:14)
[2017-05-31] MEDS: BETA CAROTENE/VIT C/E/MIN TAB PO SCH (09:35)
[2017-05-31] MEDS: CYANOCOBALAMIN 500 MCG TAB PO SCH (09:35)
[2017-05-31] MEDS: DOCUSATE SODIUM 100 MG CAP PO PRN (11:06)
--- NOTE | 2017-05-31 13:08 | DS ---
Date/Time of Note Date/Time of Note DATE: 05/31/17 TIME: 13:07 Discharge Summary Admission/Discharge Info Admit Date/Time May 23, 2017 at 10:26 Discharge Date/Time May 31, 2017 at 12:30 Discharge Diagnosis 1. Proximal right femoral fracture. Status post open reduction and internal fixation on 05/25/2017. 2. Atrial fibrillation. Rate controlled. 3. Cardiomyopathy. 4. Essential hypertension. 5. Dyslipidemia. Iron deficiency anemia. 6. Low TSH with elevated free T4. Consults 1. In Cora Eagle MD, Orthopedic Surgery. 2. Josh Holliday MD, Cardiology. Hospital Course This is an 87-year-old male with past medical history of atrial fibrillation, cardiomyopathy with AICD placement, and debility, who is wheelchair bound at home. He was brought in by EMS to the emergency department after he sustained a mechanical fall with resultant right hip pain and right foot drop. There was no reported head trauma or syncope. The patient's initial workup in the emergency room showed a proximal right femoral fracture. The patient's brain CT scan was negative for any acute findings. The patient was admitted to inpatient setting for further treatment and evaluation. Orthopedic surgery consult was obtained. Cardiology consult was obtained for cardiac clearance for surgical intervention. The patient underwent an open reduction and internal fixation of the right proximal femoral fracture on 05/25/2017. Postoperatively, physical therapy evaluation was ordered. The patient progressed fairly well with physical therapy following the hip surgery. The patient has underlying atrial fibrillation. The patient's heart rate was controlled. The patient is not an ideal candidate for therapeutic anticoagulation because of advanced age and high risk for fall. However, he was maintained on prophylactic anticoagulation with Lovenox for DVT prophylaxis. The patient's heart rate remained controlled. The patient was maintained on amiodarone, mexiletine, and beta blockers. The patient has underlying cardiomyopathy with an ejection fraction of 40 percent. He was maintained on beta blockers and was later added on DORA inhibitors by Cardiology. The patient was noticed to have postoperative anemia and he received 1 unit of PRBC. He was noticed to have macrocytic anemia, however, the patient's folate levels were within normal limits. The patient was noticed to have iron deficiency. The patient was maintained on iron supplements with IV iron supplements. The patient was incidentally noticed to have a low TSH with elevated free T4. This needs to be re-evaluated to confirm any hyperthyroidism in the near future. Also his amiodarone therapy may need to be addressed. This was discussed with the patient's director mobile media solutions. He can be evaluated by Endocrinology in the near future during his stay at the acute rehabilitation unit. The patient was seen by acute rehabilitation team and the patient was accepted for inpatient acute rehabilitation for further rehabilitation. DISCHARGE DISPOSITION AND PLAN: The patient will be discharged to acute rehabilitation unit. The patient will continue taking medications as per the medication list, which are listed below. The patient will follow a low- cholesterol diet. Activities will be as per the discretion of the rehabilitation team. She has discharge orders 17. However, this was delayed because of nonclinical reasons. The patient was discharged to acute rehabilitation unit on 05/31/2017. The patient's clinical status remained unchanged. Case discussed with Dr. Dominguez. Home Meds Active Scripts Metoprolol Succinate* (Toprol XL*) 25 Mg Tab.sr.24h, 25 MG PO BID for 15 Days Prov:GALE PAK NP 05/30/17 Lisinopril* (Lisinopril*) 5 Mg Tablet, 2.5 MG PO DAILY for 15 Days, TAB Prov:GALE PAK NP 05/30/17 Enoxaparin Sodium (Enoxaparin Sodium) 40 Mg/0.4 Ml Syringe, 40 MG SC DAILY for 15 Days Prov:GALE PAK NP 05/30/17 Reported Medications Vit C/Billie Ac/Lut/Copper/Znox (PRESERVISION LUTEIN SOFTGEL) 1 Each Capsule, 1 EACH PO DAILY 07/28/15 Calcium Carbonate-Vitamin D3 (Calcium + D 600 Tablet) 1 Tab Tablet, 1 TAB PO DAILY, TAB 07/28/15 Ferrous Sulfate* (Ferrous Sulfate*) 325 Mg Tabec, 325 MG PO DAILY, TAB 07/28/15 Cyanocobalamin* (Vitamin B-12*) 100 Mcg Tablet, 100 MCG PO DAILY, TAB 07/28/15 Mexiletine Hcl* (Mexiletine Hcl*) 150 Mg Capsule, 150 MG PO DAILY, CAP 07/28/15 Amiodarone Hcl* (Amiodarone Hcl*) 200 Mg Tablet, 200 MG PO BID, TAB 07/28/15 Simvastatin (Simvastatin) 20 Mg Tablet, 20 MG PO HS, TAB 07/28/15 Discontinued Reported Medications Midodrine HCl (Midodrine HCl) 2.5 Mg Tablet, 2.5 MG PO TID, TAB 05/23/17 Omeprazole* (Omeprazole*) 40 Mg Capsule., 40 MG PO DAILY, #30 CAP 05/23/17 Follow-up Plan Patient being transferred to inpatient acute rehabilitation unit. Primary Care Provider Sherry Corey Time spent on discharge: > 30 minutes GALE PAK NP May 31, 2017 13:08
--- NOTE | 2017-05-31 14:15 | DS ---
DATE OF ADMISSION: 05/23/2017 DATE OF DISCHARGE: 05/30/2017 (Transferred to Acute Rehabilitation Unit) FINAL DIAGNOSES: 1. Proximal right femoral fracture. Status post open reduction and internal fixation on 05/25/2017. 2. Atrial fibrillation. Rate controlled. 3. Cardiomyopathy. 4. Essential hypertension. 5. Dyslipidemia. Iron deficiency anemia. 6. Low TSH with elevated free T4. CONSULTANTS: 1. Josh Holliday MD, Cardiology. 2. Adriel Eagle MD, Orthopedic Surgery. HOSPITAL COURSE: This is an 87-year-old male with past medical history of atrial fibrillation, cardiomyopathy with AICD placement, and debility, who is wheelchair bound at home. He was brought in by EMS to the emergency department after he sustained a mechanical fall with resultant right hip pain and right foot drop. There was no reported head trauma or syncope. The patient's initial workup in the emergency room showed a proximal right femoral fracture. The patient's brain CT scan was negative for any acute findings. The patient was admitted to inpatient setting for further treatment and evaluation. Orthopedic surgery consult was obtained. Cardiology consult was obtained for cardiac clearance for surgical intervention. The patient underwent an open reduction and internal fixation of the right proximal femoral fracture on 05/25/2017. Postoperatively, physical therapy evaluation was ordered. The patient progressed fairly well with physical therapy following the hip surgery. The patient has underlying atrial fibrillation. The patient's heart rate was controlled. The patient is not an ideal candidate for therapeutic anticoagulation because of advanced age and high risk for fall. However, he was maintained on prophylactic anticoagulation with Lovenox for DVT prophylaxis. The patient's heart rate remained controlled. The patient was maintained on amiodarone, mexiletine, and beta blockers. The patient has underlying cardiomyopathy with an ejection fraction of 40 percent. He was maintained on beta blockers and was later added on DORA inhibitors by Cardiology. The patient was noticed to have postoperative anemia and he received 1 unit of PRBC. He was noticed to have macrocytic anemia, however, the patient's folate levels were within normal limits. The patient was noticed to have iron deficiency. The patient was maintained on iron supplements with IV iron supplements. The patient was incidentally noticed to have a low TSH with elevated free T4. This needs to be re-evaluated to confirm any hyperthyroidism in the near future. Also his amiodarone therapy may need to be addressed. This was discussed with the patient's voice data communications engineer. He can be evaluated by Endocrinology in the near future during his stay at the acute rehabilitation unit. The patient was seen by acute rehabilitation team and the patient was accepted for inpatient acute rehabilitation for further rehabilitation. DISCHARGE DISPOSITION AND PLAN: The patient will be discharged to acute rehabilitation unit. The patient will continue taking medications as per the medication list, which are listed below. The patient will follow a low-cholesterol diet. Activities will be as per the discretion of the rehabilitation team. DISCHARGE CONDITION: Stable. DISCHARGE MEDICATIONS: 1. Lovenox 40 mg subcutaneous daily. 2. Lisinopril 22.5 mg p.o. daily. 3. Metoprolol-XL 25 mg p.o. b.i.d. 4. Amiodarone 200 mg p.o. b.i.d. 5. Calcium carbonate 1 tab p.o. daily. 6. Vitamin D3 1 tab p.o. daily. 7. Vitamin B12 100 mcg p.o. daily. 8. Ferrous sulfate 325 mg p.o. daily. 9. Mexiletine 150 mg p.o. daily. 10. Simvastatin 20 mg p.o. nightly PERTINENT LAB AND PROCEDURES: 1. Open reduction, internal fixation of the right hip fracture utilizing nail. 2. Two dimensional echocardiogram. Ejection fraction of 40 percent. Stage I diastolic dysfunction with the estimated peak PA systolic pressure of 24 mmHg. 3. Latest CBC. WBC 5.8, hemoglobin 9.1, hematocrit 28.5, platelet count 169. 4. Latest BMP. Sodium 136, potassium 3.8, chloride 103, carbon dioxide 30, anion gap 7, BUN 21, creatinine 0.7, glucose 100, calcium 8.2, phosphorus 3.2, magnesium 1.9. 5. Iron panel. Iron 24, TIBC 184, iron saturation 13, ferritin 155. 6. Thyroid panel. TSH 0.436, free T4 3.13. 7. Hemoglobin A1c 5.5. 8. Fasting lipid panel. Triglycerides 48, total cholesterol 97, LDL 32. HDL 55,. At this time, I would like to thank all the consultants for seeing the patient, doing the necessary procedures, and providing clinical recommendations. The case and management of this patient was fully discussed with Dr. Dominguez. Approximately 40 minutes were spent on the discharge. Dictated By: Ryan Armstrong NP /fito/bjc /Document#: [id number] MTDD
== END 2017-05-31 12:30 | DRG 481 ==
LOC: E/R 08:20 → MS1 10:26
PROVIDERS: ADMIT Internal Medicine; ATTEND Internal Medicine
PROC: 0QS604Z Reposition Right Upper Femur with Internal Fixation Device, Open Approach (ICD-10-PCS; principal; 2017-05-25 07:30)
PROC: 30233N1 Transfusion of Nonautologous Red Blood Cells into Peripheral Vein, Percutaneous Approach (ICD-10-PCS; 2017-05-28)
DX: S72.141A Displaced intertrochanteric fracture of right femur, initial encounter for closed fracture (principal); I50.42 Chronic combined systolic (congestive) and diastolic (congestive) heart failure; I11.0 Hypertensive heart disease with heart failure; I42.9 Cardiomyopathy, unspecified; I48.2 Chronic atrial fibrillation; J44.9 Chronic obstructive pulmonary disease, unspecified; G62.9 Polyneuropathy, unspecified; D62 Acute posthemorrhagic anemia; E78.5 Hyperlipidemia, unspecified; D50.9 Iron deficiency anemia, unspecified; S72.21XA Displaced subtrochanteric fracture of right femur, initial encounter for closed fracture; W01.0XXA Fall on same level from slipping, tripping and stumbling without subsequent striking against object, initial encounter; M19.90 Unspecified osteoarthritis, unspecified site; R53.81 Other malaise; Z87.891 Personal history of nicotine dependence; Z95.810 Presence of automatic (implantable) cardiac defibrillator; Z99.3 Dependence on wheelchair
CPT/HCPCS: 36415; 36430; 70450; 71010; 72170; 73510; 73530; 80048; 80053; 80061; 81001; 82607; 82728; 82746; 83036; 83540; 83690; 83735; 84100; 84439; 84443; 84484; 85014; 85018; 85025; 86644; 86850; 86900; 86901; 86920; 87086; 93005; 93306; 94664; 96361; 96374; 97110; 97162; 97530; C1713; J0690; J1650; J1885; J1940; J2250; J2270; J2370; J2405; J2710; J2916; J3010; J3420; J3480; J7030; J7040; J7042; P9016

== ENCOUNTER 2017-05-31 12:40 | Inpatient (IN) | payer MEDICARE, BC ==
[~2017-05-31] VITALS: Ht 185.4 cm; Wt 75.0 kg
[~2017-05-31 12:40] MED LIST changes: +ENOX40DI12 SC; +LISI-313 PO; +METO-335 PO; -OMEP20CA9 PO
[2017-05-31 12:50] VITALS: BP 103/49; PULSE 70; RESP 18
[2017-05-31] MEDS ORDERED: ACETAMINOPHEN 325 MG TAB PO PRN (14:43)
[2017-05-31] MEDS ORDERED: FERROUS FUMARATE (SR) TAB PO SCH (14:43)
[2017-05-31] MEDS ORDERED: DOCUSATE SODIUM 100 MG CAP PO PRN (14:43)
--- NOTE | 2017-05-31 16:36 | CONS ---
Date/Time of Note Date/Time of Note DATE: 05/31/17 TIME: 16:32 Assessment/Plan Assessment/Plan Chief Complaint/Hosp Course IMPRESSION: 1. Preoperative evaluation prior to possible open reduction and internal fixation of hip.-negative trop x 3. NO cp. EF 40%. NO contraindicated valve lesions. Thus no contraindication to proceeding to or at this time on current medications without further non-invasive evaluation but given low EF and h/o arrythmias is at high risk. -Now post op s/p LE ORIF and transferred to rehab 2. Status post fall, mechanical by description. 3. History of automatic implantable cardioverter defibrillator on anti- arrythmics 4. Presumed cardiomyopathy. 5. History of atrial fibrillation/ventricular arrythmias-primary EP Dr Casanova 6. Hip fracture. 7. Dyslipidemia. 8. Cardiomyopathy-EF 40% 9. Hyperthyroid by TSH/FT4 this admit RECC: -Continue BB/low dose ACEI -follow volume status clsoely -Continue statin -Continue mexilitene -Will continue amio for now and obtain records from prior cards to better understand what malignant arythmias are/were being treated and thus ability to hold amio and assess for resolution of hypethryoid state or need for further treatment -PT/OT Problems: Consultation Date/Type/Reason Admit Date/Time May 31, 2017 at 12:40 Initial Consult Date 05/31/17 Type of Consultation: cardiology Reason for Consultation cardiomyopathy/cardiac arrythmia Referring Provider: GONZALO BAUGH MD Exam/Review of Systems Vital Signs Vitals Vital Signs Date Time Temp Pulse Resp B/P Pulse Ox O2 Delivery O2 Flow Rate FiO2 05/31/17 12:50 98.0 70 18 103/49 94 Room Air Exam Review of Systems: CONSTITUTIONAL: No fevers, chills. PULMONARY: No sob CARDIOVASCULAR: No chest pain/palpitations GASTROINTESTINAL: No nausea/vomiting. GENITOURINARY: No hematuria/dysuria. MUSCULOSKELETAL: No myagias/arthalgias. PSYCHIATRIC: The patient denies depression. NEUROLOGIC: lethargic Constitutional: alert Psych: no complaints Head: normocephalic ENMT: mucosa pink and moist Neck: jvd (8-9 cm water), supple Respiratory: diminished breath sounds (at bases/B) Cardiovascular: regular rate and rhythm Gastrointestinal: non-tender, soft Musculoskeletal: muscle tone (normal) Extremities: edema (none) Neurological: other (mild generalized weakness) Medications Medications Current Medications Amiodarone HCl (Cordarone) 200 mg BID PO ; Start 05/31/17 at 14:43 Ferrous Sulfate (Ferrous Sulfate (Ec)) 325 mg DAILY PO ; Start 05/31/17 at 14:43 Mexiletine HCl (Mexitil) 150 mg DAILY PO ; Start 05/31/17 at 14:43 Calcium/Vitamin D (Oyster Shell/ Vit-D (250/125)) 1 tab DAILY PO ; Start at 14:43 Atorvastatin Calcium (Lipitor) 10 mg DAILY@21 PO ; Start 05/31/17 at 14:43 Beta Carotene (Ocuvite) 1 tab DAILY PO ; Start 05/31/17 at 14:43 Acetaminophen (Tylenol Tab) 650 mg Q6H PRN PO PAIN LEVEL 1-3 OR FEVER; Start at 14:43 Docusate Sodium (Colace) 100 mg Q12H PRN PO CONSTIPATION; Start 05/31/17 at 14: 43 Salmeterol Xinafoate/ Fluticasone (Advair 250/50 Diskus) 1 inh BID INH ; Start 05/31/17 at 14:43 Cyanocobalamin (Vitamin B12) 500 mcg DAILY PO ; Start 05/31/17 at 14:43 Enoxaparin Sodium (Lovenox) 40 mg DAILY SC ; Start 05/31/17 at 14:43 Acetaminophen/ Hydrocodone Bitart ([place] (5/325)) 1 tab Q3H PRN PO PAIN; Start 05/31/17 at 14:43 Metoprolol Succinate (Toprol Xl) 25 mg BID PO ; Start 05/31/17 at 14:43 Lisinopril (Zestril) 2.5 mg DAILY PO ; Start 05/31/17 at 14:43 VEDA GARCES May 31, 2017 16:36
[2017-05-31 16:47] LABS: ADD UMIC YES; UR ASCORBIC ACID NEGATIVE (NEGATIVE); UR BILIRUBIN (Dip) NEGATIVE (NEGATIVE); UR BLOOD (Dip) 3+ mg/dL (NEGATIVE); UR CLARITY SLIGHTLY CLOUDY (CLEAR); UR COLOR AMBER (YELLOW); UR GLUCOSE (Dip) NEGATIVE (NEGATIVE); UR KETONES (Dip) NEGATIVE (NEGATIVE); UR LEUKOCYTE ESTERASE (Dip) TRACE Leu/ul (NEGATIVE); UR MUCUS FEW /HPF (NONE SEEN); UR NITRITE (Dip) NEGATIVE (NEGATIVE); UR RBC > 182 /HPF (0-5); UR SPECIFIC GRAVITY (Dip) 1.016 (1.003-1.030); UR TOTAL PROTEIN (Dip) 2+ mg/dl (NEGATIVE); UR UROBILINOGEN (Dip) 2+ mg/dL (NEGATIVE)
--- NOTE | 2017-05-31 18:17 | HP ---
DATE OF ADMISSION: 05/31/2017 SUMMARY: This is an 87-year-old gentleman with a past medical history of atrial fibrillation, cardiomyopathy with AICD, admitted following mechanical fall at home, sustaining right hip pain and right footdrop. He was subsequently found to have proximal right femoral fracture requiring an open reduction internal fixation, performed on 05/25/2017. He has now been transferred to [facility] for continued care. During that time, his heart rate had been controlled. Atrial fibrillation had been managed. Anticoagulation has been held secondary to fall risk and advanced age. Of note, he also received 1 unit packed red blood cells prior to transfer. PAST MEDICAL HISTORY: As above. MEDICATIONS: Per chart. ALLERGIES: NONE. SOCIAL HISTORY: Nonsmoker. No alcohol. No history of drug use. FAMILY HISTORY: Noncontributory. REVIEW OF SYSTEMS: A 12-point review of systems negative other than mentioned above. PHYSICAL EXAMINATION: GENERAL: On examination, obese gentleman, comfortable at rest. No acute distress. VITAL SIGNS: Currently afebrile. Pulse is 70, blood pressure 100/50, O2 saturation 93 percent on room air. NECK: Supple. No JVD. No lymphadenopathy. CARDIAC: S1, S2. No added sounds or murmurs. CHEST: Diminished air entry bilaterally. ABDOMEN: Soft, nontender. No guarding or rebound. EXTREMITIES: No cyanosis, clubbing. NEUROLOGIC: Generalized weakness. DIAGNOSTIC DATA: White count 5.8, hemoglobin 9.1, platelets 169,000, BUN 21, creatinine 0.71. Chest x-ray last performed on 05/30/2017 showed retrocardiac atelectasis of left lower lobe. IMPRESSION: 1. Recent mechanical fall requiring open reduction internal fixation of right hip fracture. 2. Chronic atrial fibrillation. 3. 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 PLAN: 1. Continue PT. 2. Anticoagulation held secondary to fall risk. 3. DVT and GI prophylaxis. Dictated By: Rafael Bryant MD /fito/formerly [facility] /Document#: [id number]
[2017-05-31 20:00] VITALS: BP 128/61; RESP 18
[2017-05-31] MEDS: ATORVASTATIN 10 MG TAB PO SCH (20:35)
[2017-05-31] MEDS: SALMETEROL/FLUTICASONE 250/50 INHA INH SCH (20:35)
[2017-05-31] MEDS: METOPROLOL (XL) 25 MG TAB PO SCH (20:36)
[2017-05-31] MEDS: BALSAM PERU/CASTOR OIL 60 GM TUBE TOP SCH (20:36)
[2017-05-31] MEDS: AMIODARONE 200 MG TAB PO SCH (20:37)
[2017-05-31] MEDS: HYDROCODONE/APAP (5/325) TAB PO PRN (23:40)
[2017-06-01 02:00] VITALS: BP 130/65; RESP 18
[2017-06-01 07:10] LABS: ABNORMAL IP MESSAGE 1; BASOPHILS % 0.3 % (0.0-2.0); EOSINOPHILS # 0.3 10^3/ul (0.0-0.5); EOSINOPHILS % 4.9 % (0.0-7.0); HEMATOCRIT 31.9 % (42.0-52.0); HEMOGLOBIN 10.4 g/dl (14.0-18.0); LYMPHOCYTES # 0.5 10^3/ul (0.8-2.9); LYMPHOCYTES % 7.8 % (15.0-51.0); MEAN CORPUSCULAR HEMOGLOBIN 32.6 pg (29.0-33.0); MEAN CORPUSCULAR HGB CONC 32.6 g/dl (32.0-37.0); MEAN PLATELET VOLUME 9.4 fl (7.4-10.4); MONOCYTE # 0.5 10^3/ul (0.3-0.9); MONOCYTES % 9.1 % (0.0-11.0); NEUTROPHILS % 77.4 % (39.0-77.0); PLATELET COUNT 253 10^3/UL (140-415); POSITIVE DIFF @See below; RED BLOOD COUNT 3.19 10^6/ul (4.70-6.10); RED CELL DISTRIBUTION WIDTH 13.8 % (11.5-14.5); WHITE BLOOD COUNT 5.9 10^3/ul (4.8-10.8)
[2017-06-01 07:38] LABS: ALBUMIN 2.4 g/dl (3.3-4.9); ALBUMIN/GLOBULIN RATIO 0.85; BILIRUBIN,INDIRECT 0.9 mg/dl (0-1.1); BILIRUBIN,TOTAL 0.9 mg/dl (0.2-1.3); CALCIUM 8.3 mg/dl (8.4-10.2); CREATININE 0.85 mg/dl (0.61-1.24); POTASSIUM 3.7 mmol/L (3.5-5.1); TOTAL PROTEIN 5.2 g/dl (6.1-8.1)
[2017-06-01 08:00] VITALS: BP 130/61; RESP 18
[2017-06-01] MEDS: SALMETEROL/FLUTICASONE 250/50 INHA INH SCH ×2 (09:07→20:15)
[2017-06-01] MEDS: BALSAM PERU/CASTOR OIL 60 GM TUBE TOP SCH ×2 (09:07→20:15)
[2017-06-01] MEDS: ENOXAPARIN 40 MG/0.4 ML SYG SC SCH (09:08)
[2017-06-01] MEDS: CALCIUM/VITAMIN D (250/125) TAB PO SCH (09:09)
[2017-06-01] MEDS: MEXILETINE 150 MG CAP PO SCH (09:09)
[2017-06-01] MEDS: CYANOCOBALAMIN 500 MCG TAB PO SCH (09:09)
[2017-06-01] MEDS: AMIODARONE 200 MG TAB PO SCH ×2 (09:09→20:15)
[2017-06-01] MEDS: BETA CAROTENE/VIT C/E/MIN TAB PO SCH (09:09)
[2017-06-01] MEDS: FERROUS SULFATE (EC) 325 MG TAB PO SCH (09:09)
[2017-06-01] MEDS: LISINOPRIL 5 MG TAB PO SCH (09:10)
[2017-06-01] MEDS: HYDROCODONE/APAP (5/325) TAB PO PRN ×2 (09:10→13:00)
[2017-06-01] MEDS: METOPROLOL (XL) 25 MG TAB PO SCH ×2 (09:11→20:16)
[2017-06-01 09:44] LABS: ANISOCYTOSIS 1+ (0-0); BASOPHILS % (M) 1 % (0-2); EOSINOPHILS % (M) 9 % (0-7); MONOCYTES % (M) 13 % (0-11); PLATELET ESTIMATE NORMAL; POIKILOCYTOSIS 1+ (0-0)
[2017-06-01] MEDS ORDERED: BISACODYL 10 MG SUPP PR PRN (11:30)
[2017-06-01] MEDS ORDERED: MAGNESIUM HYDROXIDE 30ML CUP PO PRN (11:30)
--- NOTE | 2017-06-01 12:08 | CONS ---
Date/Time of Note Date/Time of Note DATE: 06/01/17 TIME: 12:06 Consult Date/Type/Reason Admit Date/Time May 31, 2017 at 12:40 Initial Consult Date Type of Consultation: IM Ordering Provider: GONZALO BAUGH MD Subjective Comfortable this morning. Objective Vital Signs Date Time Temp Pulse Resp B/P Pulse Ox O2 Delivery O2 Flow Rate FiO2 06/01/17 08:00 98.0 70 18 130/61 97 05/31/17 12:50 Room Air Intake and Output 05/31/17 05/31/17 06/01/17 15:00 23:00 07:00 Intake Total 760 ml Output Total 300 ml Balance 460 ml Exam PHYSICAL EXAMINATION: GENERAL: On examination, obese gentleman, comfortable at rest. No acute distress. VITAL SIGNS: NECK: Supple. No JVD. No lymphadenopathy. CARDIAC: S1, S2. No added sounds or murmurs. CHEST: Diminished air entry bilaterally. ABDOMEN: Soft, nontender. No guarding or rebound. EXTREMITIES: No cyanosis, clubbing. NEUROLOGIC: Generalized weakness. Results/Medications Result Diagram: 06/01/1733 06/01/17 0633 Results 24 hrs Laboratory Tests Test 05/31/17 14:45 06/01/17 06:33 Urine Color JUILTO Urine Clarity SLIGHTLY CLOUDY A Urine pH 5.0 Urine Specific [place] 1.016 Urine Ketones NEGATIVE Urine Nitrite NEGATIVE Urine Bilirubin NEGATIVE Urine Urobilinogen 2+ H Urine Leukocyte Esterase TRACE A Urine Microscopic RBC > 182 H Urine Microscopic WBC 20 H Urine Mucus FEW A Urine Hemoglobin 3+ H Urine Glucose NEGATIVE Urine Total Protein 2+ H White Blood Count 5.9 Red Blood Count 3.19 L Hemoglobin 10.4 L Hematocrit 31.9 L Mean Corpuscular Volume 100.0 Mean Corpuscular Hemoglobin 32.6 Mean Corpuscular Hemoglobin Concent 32.6 Red Cell Distribution Width 13.8 Platelet Count 253 # Mean Platelet Volume 9.4 Neutrophils % 77.4 H Segmented Neutrophils % (Manual) 56 Lymphocytes % 7.8 L Lymphocytes % (Manual) 21 Monocytes % 9.1 Monocytes % (Manual) 13 H Eosinophils % 4.9 Eosinophils % (Manual) 9 H Basophils % 0.3 Basophils % (Manual) 1 Nucleated Red Blood Cells % 0.0 Neutrophils # (Manual) Absolute Lymphocytes (Manual) 1.2 Lymphocytes # 0.5 L Monocytes # 0.5 Absolute Monocytes (Manual) 0.7 Eosinophils # 0.3 Basophils # 0.0 Basophils # (Manual) 0.0 Nucleated Red Blood Cells # 0.0 Platelet Estimate NORMAL Poikilocytosis 1+ Anisocytosis 1+ Sodium Level 137 Potassium Level 3.7 Chloride Level 107 Carbon Dioxide Level 29 Anion Gap 5 L Blood Urea Nitrogen 21 H Creatinine 0.85 Glucose Level 98 Calcium Level 8.3 L Total Bilirubin 0.9 Direct Bilirubin 0.00 Indirect Bilirubin 0.9 Aspartate Amino Transf (AST/SGOT) 186 H Alanine Aminotransferase (ALT/SGPT) 307 H Alkaline Phosphatase 65 Total Protein 5.2 L Albumin 2.4 L Globulin 2.80 Albumin/Globulin Ratio 0.85 Medications Current Medications Amiodarone HCl (Cordarone) 200 mg BID PO Last administered on 06/01/17 09:09; Admin Dose 200 MG; Start 05/31/17 at 14:43 Ferrous Sulfate (Ferrous Sulfate (Ec)) 325 mg DAILY PO Last administered on 06/01 09:09; Admin Dose 325 MG; Start 05/31/17 at 14:43 Mexiletine HCl (Mexitil) 150 mg DAILY PO Last administered on 06/01/17 09:09; Admin Dose 150 MG; Start 05/31/17 at 14:43 Calcium/Vitamin D (Oyster Shell/ Vit-D (250/125)) 1 tab DAILY PO Last administered on 06/01/17 09:09; Admin Dose 1 TAB; Start 05/31/17 at 14:43 Atorvastatin Calcium (Lipitor) 10 mg DAILY@21 PO Last administered on 05/31/17 20:35; Admin Dose 10 MG; Start 05/31/17 at 14:43 Beta Carotene (Ocuvite) 1 tab DAILY PO Last administered on 06/01/17 09:09; Admin Dose 1 TAB; Start 05/31/17 at 14:43 Acetaminophen (Tylenol Tab) 650 mg Q6H PRN PO PAIN LEVEL 1-3 OR FEVER; Start at 14:43 Docusate Sodium (Colace) 100 mg Q12H PRN PO CONSTIPATION Last administered on 09:09; Admin Dose 100 MG; Start 05/31/17 at 14:43; Stop 06/01/17 at 21:00 Salmeterol Xinafoate/ Fluticasone (Advair 250/50 Diskus) 1 inh BID INH Last administered on 06/01/17 09:07; Admin Dose 1 INH; Start 05/31/17 at 14:43 Cyanocobalamin (Vitamin B12) 500 mcg DAILY PO Last administered on 06/01/17 09: 09; Admin Dose 500 MCG; Start 05/31/17 at 14:43 Enoxaparin Sodium (Lovenox) 40 mg DAILY SC Last administered on 06/01/17 09:08 ; Admin Dose 40 MG; Start 05/31/17 at 14:43 Metoprolol Succinate (Toprol Xl) 25 mg BID PO Last administered on 06/01/17 09: 11; Admin Dose 25 MG; Start 05/31/17 at 14:43 Lisinopril (Zestril) 2.5 mg DAILY PO Last administered on 06/01/17 09:10; Admin Dose 2.5 MG; Start 05/31/17 at 14:43 Acetaminophen/ Hydrocodone Bitart ([place] (5/325)) 1 tab Q4H PRN PO PAIN LEVEL 1 -5; Start 06/01/17 at 13:00 Acetaminophen/ Hydrocodone Bitart ([place] (5/325)) 2 tab Q4H PRN PO PAIN LEVEL 6 -10; Start 06/01/17 at 11:30 Docusate Sodium (Colace) 100 mg BID PO ; Start 06/01/17 at 21:00 Senna (Senokot) 1 tab DAILY PO ; Start 06/01/17 at 21:00 Bisacodyl (Dulcolax Supp) 10 mg DAILY PRN [place] CONSTIPATION; Start 06/01/17 at 11: 30 Magnesium Hydroxide (Milk Of Mag) 30 ml DAILY PRN PO CONSTIPATION; Start at 11:30 Lactulose (Enulose) 20 gm DAILY PRN PO CONSTIPATION; Start 06/01/17 at 11:30 Baclofen (Lioresal) 10 mg Q12H PRN PO MUSCLE SPASMS; Start 06/01/17 at 13:00 Assessment/Plan Chief Complaint/Hosp Course IMPRESSION: 1. Recent mechanical fall requiring open reduction internal fixation of right hip fracture. 2. Chronic atrial fibrillation. 3. 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 PLAN: 1. Continue PT. 2. Anticoagulation held secondary to fall risk. 3. DVT and GI prophylaxis. Problems: AILYN URRUTIA MD, [facility] Jun 01, 2017 12:08
--- NOTE | 2017-06-01 12:55 | CONS ---
DATE OF ADMISSION: 05/31/2017 DATE OF CONSULTATION: 06/01/2017 Rehabilitation Post Admission Physician Evaluation REHABILITATION IMPAIRMENT CATEGORY: Right intertrochanteric and subtrochanteric hip fracture status post ORIF. ACTIVE COMORBIDITIES: 1. Acute pain syndrome. 2. Atrial fibrillation. 3. COPD. 4. History of cardiomyopathy. 5. History of AICD. 6. Hypertension. 7. Hyperlipidemia. 8. Anemia. 9. Thyroid disease. 10. Impairments in self-care and mobility. HISTORY OF PRESENT ILLNESS: Patient is a pleasant 87-year-old gentleman with a history of multiple medical comorbidities, who is status post a mechanical fall with resultant right intertrochanteric and subtrochanteric fracture. The patient did undergo an ORIF. His postoperative course has been notable for significant pain, constipation, and impairments in self-care and mobility, as compared to baseline. Patient has been cleared to transfer to the rehabilitation unit for comprehensive interdisciplinary rehab care. Functional history prior to recent events he required standby assist to min assist for self-care and mobility tasks and was a limited household ambulator. Currently he requires max total assist for self-care mobility tasks. I have reviewed the preadmission screen and patient's current functional status is consistent with the preadmission screen. SOCIAL HISTORY: Patient lives with family, very supportive and hopes to return home upon discharge. PAST MEDICAL HISTORY: 1. Atrial fibrillation. 2. Status post AICD. 3. COPD. 4. Cardiomyopathy. 5. Hypertension. 6. Hyperlipidemia. 7. Thyroid disease. MEDICATION: 1. Cordarone 200 mg p.o. b.i.d. 2. Lipitor 10 mg p.o. daily. 3. Ocuvite 1 tab p.o. daily. 4. Oyster shell calcium. 5. Vitamin B12 at 500 mg p.o. daily. 6. Ferrous fumarate 1 tab p.o. b.i.d. 7. Colace 100 mg p.o. q.12. 8. Lovenox 40 mg subcu daily. 9. Nathalie p.r.n. 10. Zestril 2.5 mg p.o. daily. 11. Toprol-XL 25 mg p.o. b.i.d. 12. Mexitil 150 mg p.o. daily. 13. Advair. ALLERGIES: PATIENT WITH NO KNOWN DRUG ALLERGIES. PHYSICAL EXAMINATION: VITAL SIGNS: Patient is currently afebrile with stable vital signs. HEENT: Extraocular motions intact. Oropharynx clear. NECK: Supple. LUNGS: Clear anteriorly. HEART: S1, S2. ABDOMEN: Soft, nontender. Positive bowel sounds. NEUROLOGIC: He is awake and alert. He is oriented to person and hospital, and he will follow simple one-step commands. He demonstrates good strength in bilateral upper extremities and the left lower extremity. He is distally neurovascularly intact on the right lower extremity. PLAN: Patient has been admitted for comprehensive interdisciplinary acute rehab and is anticipated to tolerate 3 hours of daily therapy in divided doses for at least 5 out of 7 days a week. The treatment plan will include: 1. Physical therapy to focus on bed mobility, transfers, and wheelchair mobility with the goal of having patient reach a standby assist to contact guard assist at the wheelchair level. 2. Occupational therapy to focus on hygiene, grooming, dressing, bathing and toileting activities with goal of having patient reach a standby to contact guard assist at the wheelchair level. 3. Rehabilitation nursing for carry over therapeutic interventions. The goal of continent to bowel and bladder, and the goal of pain adequately managed on oral medications. REHABILITATION BARRIER: Pain. INTERVENTION FOR BARRIER: Comprehensive interdisciplinary approach. ESTIMATED LENGTH OF STAY: 14 days. DISPOSITION GOAL: Home. I acknowledged I performed a full physical examination on this patient within 24 hours of admission to the rehabilitation unit and believe the patient is a good candidate for comprehensive interdisciplinary rehab care and is anticipated to make reasonable goals in a reasonable period of time as outlined above. Dictated By: Sugar Gardiner MD /fito/[facility] /Document#: [id number] LYNDA
[2017-06-01] MEDS: LACTULOSE 30ML CUP PO PRN (13:00)
[2017-06-01] MEDS: BACLOFEN 10 MG TAB PO PRN (13:00)
[2017-06-01] MEDS ORDERED: BACLOFEN 10 MG TAB PO SCH (13:00)
[2017-06-01] MEDS: ATORVASTATIN 10 MG TAB PO SCH (20:15)
[2017-06-01] MEDS: SENNA TAB PO SCH (20:22)
[2017-06-01] MEDS: DOCUSATE SODIUM 100 MG CAP PO SCH (20:22)
[2017-06-01 21:16] VITALS: BP 126/61; RESP 18
[2017-06-02 02:00] VITALS: BP 128/63; RESP 18
[2017-06-02] MEDS: SALMETEROL/FLUTICASONE 250/50 INHA INH SCH ×2 (09:00→20:32)
[2017-06-02] MEDS: CALCIUM/VITAMIN D (250/125) TAB PO SCH (09:00)
[2017-06-02] MEDS: MEXILETINE 150 MG CAP PO SCH ×2 (09:00→19:05)
[2017-06-02] MEDS: DOCUSATE SODIUM 100 MG CAP PO SCH ×2 (10:36→20:38)
[2017-06-02] MEDS: CYANOCOBALAMIN 500 MCG TAB PO SCH (10:36)
[2017-06-02] MEDS: AMIODARONE 200 MG TAB PO SCH ×2 (10:41→20:39)
[2017-06-02] MEDS: BETA CAROTENE/VIT C/E/MIN TAB PO SCH (10:41)
[2017-06-02] MEDS: METOPROLOL (XL) 25 MG TAB PO SCH ×2 (10:42→20:38)
[2017-06-02] MEDS: FERROUS SULFATE (EC) 325 MG TAB PO SCH (10:42)
[2017-06-02] MEDS: HYDROCODONE/APAP (5/325) TAB PO PRN (10:44)
[2017-06-02] MEDS: BALSAM PERU/CASTOR OIL 60 GM TUBE TOP SCH ×2 (10:44→20:39)
[2017-06-02] MEDS: LISINOPRIL 5 MG TAB PO SCH (10:45)
[2017-06-02] MEDS: SENNA TAB PO SCH (10:46)
[2017-06-02] MEDS: ENOXAPARIN 40 MG/0.4 ML SYG SC SCH (10:46)
--- NOTE | 2017-06-02 13:32 | CONS ---
Date/Time of Note Date/Time of Note DATE: 06/02/17 TIME: 13:27 Assessment/Plan Assessment/Plan Additional Assessment/Plan S/P ORIF Status post fall H/O Cardiac dysrhythmias s/p AICD PAF Dyslipidemia. Cardiomyopathy-EF 40% Hyperthyroidism Continue amiodarone and Mexitil Continue Metoprolol and lisinopril Started on Eliquis, Monitor H & H closely Continue Lipitor Consultation Date/Type/Reason Admit Date/Time May 31, 2017 at 12:40 Psychological: no complaints Social History Smoking Status: Never smoker Exam/Review of Systems Vital Signs Vitals Vital Signs Date Time Temp Pulse Resp B/P Pulse Ox O2 Delivery O2 Flow Rate FiO2 06/02/17 02:00 97.8 75 18 128/63 98 05/31/17 12:50 Room Air Intake and Output 06/01/17 06/01/17 06/02/17 15:00 23:00 07:00 Intake Total 800 ml 480 ml Output Total 400 ml Balance 800 ml 480 ml -400 ml Exam Constitutional: alert Head: atraumatic, normocephalic Neck: non-tender, supple Respiratory: clear to auscultation Cardiovascular: regular rate and rhythm Gastrointestinal: nl liver, spleen, non-tender, soft Extremities: normal pulses Results Result Diagram: 06/01/1763206/01/17 06 Medications Medications Current Medications Amiodarone HCl (Cordarone) 200 mg BID PO Last administered on 06/02/17 10:41; Admin Dose 200 MG; Start 05/31/17 at 14:43 Ferrous Sulfate (Ferrous Sulfate (Ec)) 325 mg DAILY PO Last administered on 10:42; Admin Dose 325 MG; Start 05/31/17 at 14:43 Mexiletine HCl (Mexitil) 150 mg DAILY PO Last administered on 06/01/17 09:09; Admin Dose 150 MG; Start 05/31/17 at 14:43 Calcium/Vitamin D (Oyster Shell/ Vit-D (250/125)) 1 tab DAILY PO Last administered on 06/01/17 09:09; Admin Dose 1 TAB; Start 05/31/17 at 14:43 Atorvastatin Calcium (Lipitor) 10 mg DAILY@21 PO Last administered on 06/01/17 20:15; Admin Dose 10 MG; Start 05/31/17 at 14:43 Beta Carotene (Ocuvite) 1 tab DAILY PO Last administered on 06/02/17 10:41; Admin Dose 1 TAB; Start 05/31/17 at 14:43 Acetaminophen (Tylenol Tab) 650 mg Q6H PRN PO PAIN LEVEL 1-3 OR FEVER; Start at 14:43 Salmeterol Xinafoate/ Fluticasone (Advair 250/50 Diskus) 1 inh BID INH Last administered on 06/01/17 20:15; Admin Dose 1 INH; Start 05/31/17 at 14:43 Cyanocobalamin (Vitamin B12) 500 mcg DAILY PO Last administered on 06/02/17 10 :36; Admin Dose 500 MCG; Start 05/31/17 at 14:43 Enoxaparin Sodium (Lovenox) 40 mg DAILY SC Last administered on 06/02/17 10:46 ; Admin Dose 40 MG; Start 05/31/17 at 14:43 Metoprolol Succinate (Toprol Xl) 25 mg BID PO Last administered on 06/01/17 20: 16; Admin Dose 25 MG; Start 05/31/17 at 14:43 Lisinopril (Zestril) 2.5 mg DAILY PO Last administered on 06/02/17 10:45; Admin Dose 2.5 MG; Start 05/31/17 at 14:43 Acetaminophen/ Hydrocodone Bitart ([place] (5/325)) 1 tab Q4H PRN PO PAIN LEVEL 1 -5; Start 06/01/17 at 13:00 Acetaminophen/ Hydrocodone Bitart ([place] (5/325)) 2 tab Q4H PRN PO PAIN LEVEL 6 -10 Last administered on 06/02/17 10:44; Admin Dose 2 TAB; Start 06/01/17 at 11: 30 Docusate Sodium (Colace) 100 mg BID PO Last administered on 06/02/17 10:36; Admin Dose 100 MG; Start 06/01/17 at 21:00 Senna (Senokot) 1 tab DAILY PO Last administered on 06/02/17 10:46; Admin Dose 1 TAB; Start 06/01/17 at 21:00 Bisacodyl (Dulcolax Supp) 10 mg DAILY PRN OR CONSTIPATION; Start 06/01/17 at 11: 30 Magnesium Hydroxide (Milk Of Mag) 30 ml DAILY PRN PO CONSTIPATION; Start at 11:30 Lactulose (Enulose) 20 gm DAILY PRN PO CONSTIPATION Last administered on 13:00; Admin Dose 20 GM; Start 06/01/17 at 11:30 Baclofen (Lioresal) 10 mg Q12H PRN PO MUSCLE SPASMS Last administered on 13:00; Admin Dose 10 MG; Start 06/01/17 at 13:00 ALPHONSE CARVALHO M.D. Jun 02, 2017 13:32
[2017-06-02] MEDS: APIXABAN 5 MG TABLET PO SCH ×3 (14:30→20:40)
[2017-06-02 20:21] VITALS: BP 120/56; RESP 18
[2017-06-02] MEDS: ATORVASTATIN 10 MG TAB PO SCH (20:39)
[2017-06-03 03:29] VITALS: BP 132/63; RESP 18
[2017-06-03 07:30] VITALS: BP 134/65; RESP 20
[2017-06-03] MEDS: SALMETEROL/FLUTICASONE 250/50 INHA INH SCH ×2 (09:23→20:27)
[2017-06-03] MEDS: BALSAM PERU/CASTOR OIL 60 GM TUBE TOP SCH ×2 (09:24→20:27)
[2017-06-03] MEDS: LACTULOSE 30ML CUP PO PRN (09:25)
[2017-06-03] MEDS: HYDROCODONE/APAP (5/325) TAB PO PRN (09:26)
[2017-06-03] MEDS: APIXABAN 5 MG TABLET PO SCH ×2 (09:26→20:34)
[2017-06-03] MEDS: BETA CAROTENE/VIT C/E/MIN TAB PO SCH (09:27)
[2017-06-03] MEDS: SENNA TAB PO SCH (09:27)
[2017-06-03] MEDS: AMIODARONE 200 MG TAB PO SCH ×2 (09:27→20:34)
[2017-06-03] MEDS: CYANOCOBALAMIN 500 MCG TAB PO SCH (09:27)
[2017-06-03] MEDS: BACLOFEN 10 MG TAB PO PRN (09:27)
[2017-06-03] MEDS: DOCUSATE SODIUM 100 MG CAP PO SCH ×2 (09:27→20:35)
[2017-06-03] MEDS: MEXILETINE 150 MG CAP PO SCH (09:27)
[2017-06-03] MEDS: FERROUS SULFATE (EC) 325 MG TAB PO SCH (09:28)
[2017-06-03] MEDS: LISINOPRIL 5 MG TAB PO SCH (09:28)
[2017-06-03] MEDS: METOPROLOL (XL) 25 MG TAB PO SCH ×2 (09:28→20:34)
[2017-06-03] MEDS: CALCIUM/VITAMIN D (250/125) TAB PO SCH (09:28)
--- NOTE | 2017-06-03 12:10 | CONS ---
Date/Time of Note Date/Time of Note DATE: 06/03/17 TIME: 12:09 Consult Date/Type/Reason Admit Date/Time May 31, 2017 at 12:40 Initial Consult Date Type of Consultation: IM Ordering Provider: GONZALO BAUGH MD Objective Vital Signs Date Time Temp Pulse Resp B/P Pulse Ox O2 Delivery O2 Flow Rate FiO2 06/03/17 07:30 98.5 70 20 134/65 93 05/31/17 12:50 Room Air Intake and Output 06/02/17 06/02/17 06/03/17 15:00 23:00 07:00 Intake Total 500 ml 180 ml Balance 500 ml 180 ml INTERDISCIPLINARY TEAM CONFERENCE BOWEL- Cont BLADDER-Cont SKIN- intact OT- DRESSING-min/mod BATHING-min/mod TOILETING-mod PT- BED MOBILITY-max TRANSFERS-max AMBULATION-max 25 feet A/P- Interdisciplinary team conference held today. Please see interdisciplinary sheet. Working toward d.c. on 06/14 with post discharge follow up of physical therapy, occupational therapy. Results/Medications Result Diagram: 06/01/1733 06/01/17 0633 Medications Current Medications Amiodarone HCl (Cordarone) 200 mg BID PO Last administered on 06/03/17 09:27; Admin Dose 200 MG; Start 05/31/17 at 14:43 Ferrous Sulfate (Ferrous Sulfate (Ec)) 325 mg DAILY PO Last administered on 09:28; Admin Dose 325 MG; Start 05/31/17 at 14:43 Mexiletine HCl (Mexitil) 150 mg DAILY PO Last administered on 06/03/17 09:27; Admin Dose 150 MG; Start 05/31/17 at 14:43 Calcium/Vitamin D (Oyster Shell/ Vit-D (250/125)) 1 tab DAILY PO Last administered on 06/03/17 09:28; Admin Dose 1 TAB; Start 05/31/17 at 14:43 Atorvastatin Calcium (Lipitor) 10 mg DAILY@21 PO Last administered on 20:39; Admin Dose 10 MG; Start 05/31/17 at 14:43 Beta Carotene (Ocuvite) 1 tab DAILY PO Last administered on 06/03/17 09:27; Admin Dose 1 TAB; Start 05/31/17 at 14:43 Acetaminophen (Tylenol Tab) 650 mg Q6H PRN PO PAIN LEVEL 1-3 OR FEVER; Start at 14:43 Salmeterol Xinafoate/ Fluticasone (Advair 250/50 Diskus) 1 inh BID INH Last administered on 06/03/17 09:23; Admin Dose 1 INH; Start 05/31/17 at 14:43 Cyanocobalamin (Vitamin B12) 500 mcg DAILY PO Last administered on 06/03/17 09 :27; Admin Dose 500 MCG; Start 05/31/17 at 14:43 Metoprolol Succinate (Toprol Xl) 25 mg BID PO Last administered on 06/03/17 09 :28; Admin Dose 25 MG; Start 05/31/17 at 14:43 Lisinopril (Zestril) 2.5 mg DAILY PO Last administered on 06/03/17 09:28; Admin Dose 2.5 MG; Start 05/31/17 at 14:43 Acetaminophen/ Hydrocodone Bitart ([place] (5/325)) 1 tab Q4H PRN PO PAIN LEVEL 1 -5; Start 06/01/17 at 13:00 Acetaminophen/ Hydrocodone Bitart ([place] (5/325)) 2 tab Q4H PRN PO PAIN LEVEL 6 -10 Last administered on 06/03/17 09:26; Admin Dose 2 TAB; Start 06/01/17 at 11: 30 Docusate Sodium (Colace) 100 mg BID PO Last administered on 06/03/17 09:27; Admin Dose 100 MG; Start 06/01/17 at 21:00 Senna (Senokot) 1 tab DAILY PO Last administered on 06/03/17 09:27; Admin Dose 1 TAB; Start 06/01/17 at 21:00 Bisacodyl (Dulcolax Supp) 10 mg DAILY PRN [place] CONSTIPATION; Start 06/01/17 at 11: 30 Magnesium Hydroxide (Milk Of Mag) 30 ml DAILY PRN PO CONSTIPATION; Start at 11:30 Lactulose (Enulose) 20 gm DAILY PRN PO CONSTIPATION Last administered on 09:25; Admin Dose 20 GM; Start 06/01/17 at 11:30 Baclofen (Lioresal) 10 mg Q12H PRN PO MUSCLE SPASMS Last administered on 09:27; Admin Dose 10 MG; Start 06/01/17 at 13:00 Apixaban (Eliquis) 5 mg BID PO Last administered on 06/03/17 09:26; Admin Dose 5 MG; Start 06/02/17 at 14:30 Levofloxacin (Levaquin) 500 mg DAILY@06 PO ; Start 06/03/17 at 11:30; Stop 06/11 at 11:29 JAYY FARIAS MD Jun 03, 2017 12:10
[2017-06-03] MEDS: LEVOFLOXACIN 500 MG TAB PO SCH (12:28)
--- NOTE | 2017-06-03 12:39 | CONS ---
Date/Time of Note Date/Time of Note DATE: 06/03/17 TIME: 12:38 Consult Date/Type/Reason Admit Date/Time May 31, 2017 at 12:40 Type of Consultation: IM Ordering Provider: GONZALO BAUGH MD Subjective Patient remains comfortable no new events. Objective Vital Signs Date Time Temp Pulse Resp B/P Pulse Ox O2 Delivery O2 Flow Rate FiO2 06/03/17 07:30 98.5 70 20 134/65 93 05/31/17 12:50 Room Air Intake and Output 06/02/17 06/02/17 06/03/17 15:00 23:00 07:00 Intake Total 500 ml 180 ml Balance 500 ml 180 ml Exam PHYSICAL EXAMINATION: GENERAL: On examination, obese gentleman, comfortable at rest. No acute distress. VITAL SIGNS: NECK: Supple. No JVD. No lymphadenopathy. CARDIAC: S1, S2. No added sounds or murmurs. CHEST: Diminished air entry bilaterally. ABDOMEN: Soft, nontender. No guarding or rebound. EXTREMITIES: No cyanosis, clubbing. NEUROLOGIC: Generalized weakness. Results/Medications Result Diagram: 06/01/1733 06/01/17632 Medications Current Medications Amiodarone HCl (Cordarone) 200 mg BID PO Last administered on 06/03/17 09:27; Admin Dose 200 MG; Start 05/31/17 at 14:43 Ferrous Sulfate (Ferrous Sulfate (Ec)) 325 mg DAILY PO Last administered on 09:28; Admin Dose 325 MG; Start 05/31/17 at 14:43 Mexiletine HCl (Mexitil) 150 mg DAILY PO Last administered on 06/03/17 09:27; Admin Dose 150 MG; Start 05/31/17 at 14:43 Calcium/Vitamin D (Oyster Shell/ Vit-D (250/125)) 1 tab DAILY PO Last administered on 06/03/17 09:28; Admin Dose 1 TAB; Start 05/31/17 at 14:43 Atorvastatin Calcium (Lipitor) 10 mg DAILY@21 PO Last administered on 20:39; Admin Dose 10 MG; Start 05/31/17 at 14:43 Beta Carotene (Ocuvite) 1 tab DAILY PO Last administered on 06/03/17 09:27; Admin Dose 1 TAB; Start 05/31/17 at 14:43 Acetaminophen (Tylenol Tab) 650 mg Q6H PRN PO PAIN LEVEL 1-3 OR FEVER; Start at 14:43 Salmeterol Xinafoate/ Fluticasone (Advair 250/50 Diskus) 1 inh BID INH Last administered on 06/03/17 09:23; Admin Dose 1 INH; Start 05/31/17 at 14:43 Cyanocobalamin (Vitamin B12) 500 mcg DAILY PO Last administered on 06/03/17 09 :27; Admin Dose 500 MCG; Start 05/31/17 at 14:43 Metoprolol Succinate (Toprol Xl) 25 mg BID PO Last administered on 06/03/17 09 :28; Admin Dose 25 MG; Start 05/31/17 at 14:43 Lisinopril (Zestril) 2.5 mg DAILY PO Last administered on 06/03/17 09:28; Admin Dose 2.5 MG; Start 05/31/17 at 14:43 Acetaminophen/ Hydrocodone Bitart ([place] (5/325)) 1 tab Q4H PRN PO PAIN LEVEL 1 -5; Start 06/01/17 at 13:00 Acetaminophen/ Hydrocodone Bitart ([place] (5/325)) 2 tab Q4H PRN PO PAIN LEVEL 6 -10 Last administered on 06/03/17 09:26; Admin Dose 2 TAB; Start 06/01/17 at 11: 30 Docusate Sodium (Colace) 100 mg BID PO Last administered on 06/03/17 09:27; Admin Dose 100 MG; Start 06/01/17 at 21:00 Senna (Senokot) 1 tab DAILY PO Last administered on 06/03/17 09:27; Admin Dose 1 TAB; Start 06/01/17 at 21:00 Bisacodyl (Dulcolax Supp) 10 mg DAILY PRN [place] CONSTIPATION; Start 06/01/17 at 11: 30 Magnesium Hydroxide (Milk Of Mag) 30 ml DAILY PRN PO CONSTIPATION; Start at 11:30 Lactulose (Enulose) 20 gm DAILY PRN PO CONSTIPATION Last administered on 09:25; Admin Dose 20 GM; Start 06/01/17 at 11:30 Baclofen (Lioresal) 10 mg Q12H PRN PO MUSCLE SPASMS Last administered on 09:27; Admin Dose 10 MG; Start 06/01/17 at 13:00 Apixaban (Eliquis) 5 mg BID PO Last administered on 06/03/17 09:26; Admin Dose 5 MG; Start 06/02/17 at 14:30 Levofloxacin (Levaquin) 500 mg DAILY@06 PO Last administered on 06/03/17 12:28 ; Admin Dose 500 MG; Start 06/03/17 at 11:30; Stop 06/11/17 at 11:29 Assessment/Plan Chief Complaint/Hosp Course IMPRESSION: 1. Recent mechanical fall requiring open reduction internal fixation of right hip fracture. 2. Chronic atrial fibrillation. 3. 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 PLAN: 1. Continue PT. 2. Anticoagulation held secondary to fall risk. 3. DVT and GI prophylaxis. Discussed with at bedside. Problems: AILYN URRUTIA MD, [facility] Jun 03, 2017 12:39
--- NOTE | 2017-06-03 12:45 | CONS ---
Date/Time of Note Date/Time of Note DATE: 06/03/17 TIME: 12:44 Assessment/Plan Assessment/Plan Chief Complaint/Hosp Course IMPRESSION: 1. Preoperative evaluation prior to possible open reduction and internal fixation of hip.-negative trop x 3. NO cp. EF 40%. NO contraindicated valve lesions. Thus no contraindication to proceeding to or at this time on current medications without further non-invasive evaluation but given low EF and h/o arrythmias is at high risk. -Now post op s/p LE ORIF and transferred to rehab 2. Status post fall, mechanical by description. 3. History of automatic implantable cardioverter defibrillator on anti- arrythmics 4. Presumed cardiomyopathy. 5. History of atrial fibrillation/ventricular arrythmias-primary EP Dr Casanova 6. Hip fracture. 7. Dyslipidemia. 8. Cardiomyopathy-EF 40% 9. Hyperthyroid by TSH/FT4 this admit RECC: -Continue BB/low dose ACEI -follow volume status closely which is euvolemic at this tie -Continue statin -Continue mexilitene -Will continue amio for now and obtain records from prior cards to better understand what malignant arythmias are/were being treated and thus ability to hold amio and assess for resolution of hypethryoid state or need for further treatment -PT/OT Problems: Consultation Date/Type/Reason Admit Date/Time May 31, 2017 at 12:40 Initial Consult Date 05/31/17 Type of Consultation: cardiology Reason for Consultation AF Referring Provider: GONZALO BAUGH MD Exam/Review of Systems Vital Signs Vitals Vital Signs Date Time Temp Pulse Resp B/P Pulse Ox O2 Delivery O2 Flow Rate FiO2 06/03/17 07:30 98.5 70 20 134/65 93 05/31/17 12:50 Room Air Intake and Output 06/02/17 06/02/17 06/03/17 15:00 23:00 07:00 Intake Total 500 ml 180 ml Balance 500 ml 180 ml Exam Constitutional: alert, oriented Psych: no complaints Head: normocephalic Neck: jvd (8-9 cm water), supple Respiratory: diminished breath sounds (at bases/B) Cardiovascular: regular rate and rhythm Gastrointestinal: non-tender, soft Musculoskeletal: muscle tone (normal) Extremities: edema Skin: other (No focal deficits) Results Result Diagram: 06/01/17 0633 06/01/17 0633 Medications Medications Current Medications Amiodarone HCl (Cordarone) 200 mg BID PO Last administered on 06/03/17 09:27; Admin Dose 200 MG; Start 05/31/17 at 14:43 Ferrous Sulfate (Ferrous Sulfate (Ec)) 325 mg DAILY PO Last administered on 09:28; Admin Dose 325 MG; Start 05/31/17 at 14:43 Mexiletine HCl (Mexitil) 150 mg DAILY PO Last administered on 06/03/17 09:27; Admin Dose 150 MG; Start 05/31/17 at 14:43 Calcium/Vitamin D (Oyster Shell/ Vit-D (250/125)) 1 tab DAILY PO Last administered on 06/03/17 09:28; Admin Dose 1 TAB; Start 05/31/17 at 14:43 Atorvastatin Calcium (Lipitor) 10 mg DAILY@21 PO Last administered on 20:39; Admin Dose 10 MG; Start 05/31/17 at 14:43 Beta Carotene (Ocuvite) 1 tab DAILY PO Last administered on 06/03/17 09:27; Admin Dose 1 TAB; Start 05/31/17 at 14:43 Acetaminophen (Tylenol Tab) 650 mg Q6H PRN PO PAIN LEVEL 1-3 OR FEVER; Start at 14:43 Salmeterol Xinafoate/ Fluticasone (Advair 250/50 Diskus) 1 inh BID INH Last administered on 06/03/17 09:23; Admin Dose 1 INH; Start 05/31/17 at 14:43 Cyanocobalamin (Vitamin B12) 500 mcg DAILY PO Last administered on 06/03/17 09 :27; Admin Dose 500 MCG; Start 05/31/17 at 14:43 Metoprolol Succinate (Toprol Xl) 25 mg BID PO Last administered on 06/03/17 09 :28; Admin Dose 25 MG; Start 05/31/17 at 14:43 Lisinopril (Zestril) 2.5 mg DAILY PO Last administered on 06/03/17 09:28; Admin Dose 2.5 MG; Start 05/31/17 at 14:43 Acetaminophen/ Hydrocodone Bitart ([place] (5/325)) 1 tab Q4H PRN PO PAIN LEVEL 1 -5; Start 06/01/17 at 13:00 Acetaminophen/ Hydrocodone Bitart ([place] (5/325)) 2 tab Q4H PRN PO PAIN LEVEL 6 -10 Last administered on 06/03/17 09:26; Admin Dose 2 TAB; Start 06/01/17 at 11: 30 Docusate Sodium (Colace) 100 mg BID PO Last administered on 06/03/17 09:27; Admin Dose 100 MG; Start 06/01/17 at 21:00 Senna (Senokot) 1 tab DAILY PO Last administered on 06/03/17 09:27; Admin Dose 1 TAB; Start 06/01/17 at 21:00 Bisacodyl (Dulcolax Supp) 10 mg DAILY PRN [place] CONSTIPATION; Start 06/01/17 at 11: 30 Magnesium Hydroxide (Milk Of Mag) 30 ml DAILY PRN PO CONSTIPATION; Start at 11:30 Lactulose (Enulose) 20 gm DAILY PRN PO CONSTIPATION Last administered on 09:25; Admin Dose 20 GM; Start 06/01/17 at 11:30 Baclofen (Lioresal) 10 mg Q12H PRN PO MUSCLE SPASMS Last administered on 09:27; Admin Dose 10 MG; Start 06/01/17 at 13:00 Apixaban (Eliquis) 5 mg BID PO Last administered on 06/03/17 09:26; Admin Dose 5 MG; Start 06/02/17 at 14:30 Levofloxacin (Levaquin) 500 mg DAILY@06 PO Last administered on 06/03/17 12:28 ; Admin Dose 500 MG; Start 06/03/17 at 11:30; Stop 06/11/17 at 11:29 VEDA GARCES Jun 03, 2017 12:45
[2017-06-03 14:00] VITALS: BP 125/58; RESP 18
[2017-06-03 20:00] VITALS: BP 147/65; RESP 18
[2017-06-03] MEDS: ATORVASTATIN 10 MG TAB PO SCH (20:34)
--- NOTE | 2017-06-04 01:27 | CONS ---
DATE OF ADMISSION: 05/31/2017 DATE OF CONSULTATION: 06/03/2017 SUMMARY: This is an 87-year-old gentleman who recently presented to [facility] with mechanical fall sustaining a right proximal femoral fracture, underwent internal fixation open reduction by Dr. Gramajo, performed 05/25/2017. During his stay, he required transfusion of packed red blood cells. Blood pressure was managed with addition of DORA inhibitor and also noted to have iron deficiency anemia. PAST MEDICAL HISTORY: Includes chronic atrial fibrillation on amiodarone; also noted to have low TSH and elevated T4. MEDICATION: 1. Lovenox. 2. Lisinopril. 3. Metoprolol. 4. Amiodarone. 5. Vitamin D. 6. Vitamin B12. 7. Mexiletine. 8. Simvastatin. PHYSICAL EXAMINATION: GENERAL: A well-nourished, well-developed gentleman, comfortable at rest, in no acute distress. VITAL SIGNS: Currently afebrile. Temperature 98, pulse 70, blood pressure 134/65, and O2 sat 96 percent on room air. NECK: Supple. No JVD or lymphadenopathy. HEART: S1, S2. No added sounds or murmurs. CHEST: Diminished air entry bilaterally. ABDOMEN: Soft, nontender. No guarding or rebound. EXTREMITIES: No cyanosis, clubbing, or edema. NEUROLOGICAL: Grossly intact. LABORATORY: White count 5.9, hemoglobin 10.4, platelets 253, BUN 21, and creatinine 0.85. IMPRESSION: 1. Recent fall. 2. Femoral fracture status post repair. 3. History of atrial fibrillation. 4. History of hyperlipidemia. 5. Evidence of hypothyroidism, possibly secondary to chronic amiodarone use. PLAN: The patient will require: 1. Continued physical therapy. 2. Rate control. 3. Endocrinology consult. 4. DVT and GI prophylaxis. Dictated By: Rafael Bryant MD /fito/trina /Document#: [id number]
[2017-06-04 02:00] VITALS: BP 128/70; RESP 18
[2017-06-04] MEDS: LEVOFLOXACIN 500 MG TAB PO SCH (06:47)
[2017-06-04 08:11] VITALS: BP 110/60; PULSE 73; RESP 18
[2017-06-04] MEDS: SALMETEROL/FLUTICASONE 250/50 INHA INH SCH ×2 (08:38→21:38)
[2017-06-04] MEDS: BALSAM PERU/CASTOR OIL 60 GM TUBE TOP SCH ×2 (08:39→21:38)
[2017-06-04] MEDS: BACLOFEN 10 MG TAB PO PRN (08:40)
[2017-06-04] MEDS: FERROUS SULFATE (EC) 325 MG TAB PO SCH (08:40)
[2017-06-04] MEDS: METOPROLOL (XL) 25 MG TAB PO SCH ×2 (08:40→21:37)
[2017-06-04] MEDS: SENNA TAB PO SCH (08:40)
[2017-06-04] MEDS: LACTULOSE 30ML CUP PO PRN (08:40)
[2017-06-04] MEDS: CALCIUM/VITAMIN D (250/125) TAB PO SCH (08:41)
[2017-06-04] MEDS: APIXABAN 5 MG TABLET PO SCH ×2 (08:41→21:37)
[2017-06-04] MEDS: MEXILETINE 150 MG CAP PO SCH (08:41)
[2017-06-04] MEDS: LISINOPRIL 5 MG TAB PO SCH (08:41)
[2017-06-04] MEDS: DOCUSATE SODIUM 100 MG CAP PO SCH ×2 (08:41→21:36)
[2017-06-04] MEDS: BETA CAROTENE/VIT C/E/MIN TAB PO SCH (08:41)
[2017-06-04] MEDS: HYDROCODONE/APAP (5/325) TAB PO PRN (08:42)
[2017-06-04] MEDS: AMIODARONE 200 MG TAB PO SCH ×2 (08:42→21:37)
[2017-06-04] MEDS: CYANOCOBALAMIN 500 MCG TAB PO SCH (08:42)
--- NOTE | 2017-06-04 09:38 | CONS ---
Date/Time of Note Date/Time of Note DATE: 06/04/17 TIME: 09:36 Assessment/Plan Assessment/Plan Additional Assessment/Plan 1. Preoperative evaluation prior to possible open reduction and internal fixation of hip.-negative trop x 3. NO cp. EF 40%. NO contraindicated valve lesions. Thus no contraindication to proceeding to or at this time on current medications without further non-invasive evaluation but given low EF and h/o arrythmias is at high risk. -Now post op s/p LE ORIF and transferred to rehab - [facility], doing well. 2. Status post fall, mechanical by description- no cardiac instability noted. 3. History of automatic implantable cardioverter defibrillator on anti- arrythmics 4. Presumed cardiomyopathy - stable fluid satus now. 5. History of atrial fibrillation/ventricular arrythmias-primary EP Dr Edilberto - rate controlled 6. Hip fracture. 7. Dyslipidemia. 8. Cardiomyopathy-EF 40% 9. Hyperthyroid by TSH/FT4 this admit Consultation Date/Type/Reason Admit Date/Time May 31, 2017 at 12:40 Initial Consult Date Type of Consultation: cardiology Referring Provider: GONZALO BAUGH MD 24 HR Interval Summary Free Text/Dictation No acute evens - rehab in progress - rate controlled ROS: No fever, no chills, no nausea, no vomiting, no diarrhea/constipation No recent weight changes No chest pain, no PND, no orthopnea No dizziness, blurred vision No thirst, no heat or cold intolerance Exam/Review of Systems Vital Signs Vitals Vital Signs Date Time Temp Pulse Resp B/P Pulse Ox O2 Delivery O2 Flow Rate FiO2 06/04/17 08:11 97.9 73 18 110/60 94 Room Air Intake and Output 06/03/17 06/03/17 06/04/17 15:00 23:00 07:00 Intake Total 540 ml 200 ml Output Total 600 ml Balance 540 ml -400 ml Exam General: WN/WD/NAD, AOx 3 HEENT: Unicetric/atraumatic/EOMI (follows commands) NECK: JVD elevated, no thyromegaly Lymph: no lymphadenopathy HEART: regular with no S3, II/ systolic murmur at apex LUNGS: Coarse sounds ABD: soft, NT, ND, +BS : Intact Neuro: non focal SKIN: chronic changes EXT: trace edema, post op Results Result Diagram: 06/01/1763206/01/17 0633 Medications Medications Current Medications Amiodarone HCl (Cordarone) 200 mg BID PO Last administered on 06/04/17 08:42; Admin Dose 200 MG; Start 05/31/17 at 14:43 Ferrous Sulfate (Ferrous Sulfate (Ec)) 325 mg DAILY PO Last administered on 08:40; Admin Dose 325 MG; Start 05/31/17 at 14:43 Mexiletine HCl (Mexitil) 150 mg DAILY PO Last administered on 06/04/17 08:41; Admin Dose 150 MG; Start 05/31/17 at 14:43 Calcium/Vitamin D (Oyster Shell/ Vit-D (250/125)) 1 tab DAILY PO Last administered on 06/04/17 08:41; Admin Dose 1 TAB; Start 05/31/17 at 14:43 Atorvastatin Calcium (Lipitor) 10 mg DAILY@21 PO Last administered on 20:34; Admin Dose 10 MG; Start 05/31/17 at 14:43 Beta Carotene (Ocuvite) 1 tab DAILY PO Last administered on 06/04/17 08:41; Admin Dose 1 TAB; Start 05/31/17 at 14:43 Acetaminophen (Tylenol Tab) 650 mg Q6H PRN PO PAIN LEVEL 1-3 OR FEVER; Start at 14:43 Salmeterol Xinafoate/ Fluticasone (Advair 250/50 Diskus) 1 inh BID INH Last administered on 06/04/17 08:38; Admin Dose 1 INH; Start 05/31/17 at 14:43 Cyanocobalamin (Vitamin B12) 500 mcg DAILY PO Last administered on 06/04/17 08 :42; Admin Dose 500 MCG; Start 05/31/17 at 14:43 Metoprolol Succinate (Toprol Xl) 25 mg BID PO Last administered on 06/04/17 08 :40; Admin Dose 25 MG; Start 05/31/17 at 14:43 Lisinopril (Zestril) 2.5 mg DAILY PO Last administered on 06/04/17 08:41; Admin Dose 2.5 MG; Start 05/31/17 at 14:43 Acetaminophen/ Hydrocodone Bitart ([place] (5/325)) 1 tab Q4H PRN PO PAIN LEVEL 1 -5; Start 06/01/17 at 13:00 Acetaminophen/ Hydrocodone Bitart ([place] (5/325)) 2 tab Q4H PRN PO PAIN LEVEL 6 -10 Last administered on 06/04/17 08:42; Admin Dose 2 TAB; Start 06/01/17 at 11: 30 Docusate Sodium (Colace) 100 mg BID PO Last administered on 06/04/17 08:41; Admin Dose 100 MG; Start 06/01/17 at 21:00 Senna (Senokot) 1 tab DAILY PO Last administered on 06/04/17 08:40; Admin Dose 1 TAB; Start 06/01/17 at 21:00 Bisacodyl (Dulcolax Supp) 10 mg DAILY PRN [place] CONSTIPATION; Start 06/01/17 at 11: 30 Magnesium Hydroxide (Milk Of Mag) 30 ml DAILY PRN PO CONSTIPATION; Start at 11:30 Lactulose (Enulose) 20 gm DAILY PRN PO CONSTIPATION Last administered on 08:40; Admin Dose 20 GM; Start 06/01/17 at 11:30 Baclofen (Lioresal) 10 mg Q12H PRN PO MUSCLE SPASMS Last administered on 08:40; Admin Dose 10 MG; Start 06/01/17 at 13:00 Apixaban (Eliquis) 5 mg BID PO Last administered on 06/04/17 08:41; Admin Dose 5 MG; Start 06/02/17 at 14:30 Levofloxacin (Levaquin) 500 mg DAILY@06 PO Last administered on 06/04/17 06:47 ; Admin Dose 500 MG; Start 06/03/17 at 11:30; Stop 06/11/17 at 11:29 CELSO CABALLERO MD Jun 04, 2017 09:38
[2017-06-04] MEDS ORDERED: ONDANSETRON 4 MG INJ IV PRN (11:30)
--- NOTE | 2017-06-04 12:31 | CONS ---
Date/Time of Note Date/Time of Note DATE: 06/04/17 TIME: 12:28 Consult Date/Type/Reason Admit Date/Time May 31, 2017 at 12:40 Type of Consultation: IM Ordering Provider: GONZALO BAUGH MD Subjective Comfortable today. Objective Vital Signs Date Time Temp Pulse Resp B/P Pulse Ox O2 Delivery O2 Flow Rate FiO2 06/04/17 08:11 97.9 73 18 110/60 94 Room Air Intake and Output 06/03/17 06/03/17 06/04/17 15:00 23:00 07:00 Intake Total 540 ml 200 ml Output Total 600 ml Balance 540 ml -400 ml Exam PHYSICAL EXAMINATION: GENERAL: On examination, obese gentleman, comfortable at rest. No acute distress. VITAL SIGNS: NECK: Supple. No JVD. No lymphadenopathy. CARDIAC: S1, S2. No added sounds or murmurs. CHEST: Diminished air entry bilaterally. ABDOMEN: Soft, nontender. No guarding or rebound. EXTREMITIES: No cyanosis, clubbing. NEUROLOGIC: Generalized weakness. Results/Medications Result Diagram: 06/01/1763206/01/1733 Medications Current Medications Amiodarone HCl (Cordarone) 200 mg BID PO Last administered on 06/04/17 08:42; Admin Dose 200 MG; Start 05/31/17 at 14:43 Ferrous Sulfate (Ferrous Sulfate (Ec)) 325 mg DAILY PO Last administered on 08:40; Admin Dose 325 MG; Start 05/31/17 at 14:43 Mexiletine HCl (Mexitil) 150 mg DAILY PO Last administered on 06/04/17 08:41; Admin Dose 150 MG; Start 05/31/17 at 14:43 Calcium/Vitamin D (Oyster Shell/ Vit-D (250/125)) 1 tab DAILY PO Last administered on 06/04/17 08:41; Admin Dose 1 TAB; Start 05/31/17 at 14:43 Atorvastatin Calcium (Lipitor) 10 mg DAILY@21 PO Last administered on 20:34; Admin Dose 10 MG; Start 05/31/17 at 14:43 Beta Carotene (Ocuvite) 1 tab DAILY PO Last administered on 06/04/17 08:41; Admin Dose 1 TAB; Start 05/31/17 at 14:43 Acetaminophen (Tylenol Tab) 650 mg Q6H PRN PO PAIN LEVEL 1-3 OR FEVER; Start at 14:43 Salmeterol Xinafoate/ Fluticasone (Advair 250/50 Diskus) 1 inh BID INH Last administered on 06/04/17 08:38; Admin Dose 1 INH; Start 05/31/17 at 14:43 Cyanocobalamin (Vitamin B12) 500 mcg DAILY PO Last administered on 06/04/17 08 :42; Admin Dose 500 MCG; Start 05/31/17 at 14:43 Metoprolol Succinate (Toprol Xl) 25 mg BID PO Last administered on 06/04/17 08 :40; Admin Dose 25 MG; Start 05/31/17 at 14:43 Lisinopril (Zestril) 2.5 mg DAILY PO Last administered on 06/04/17 08:41; Admin Dose 2.5 MG; Start 05/31/17 at 14:43 Acetaminophen/ Hydrocodone Bitart ([place] (5/325)) 1 tab Q4H PRN PO PAIN LEVEL 1 -5; Start 06/01/17 at 13:00 Acetaminophen/ Hydrocodone Bitart ([place] (5/325)) 2 tab Q4H PRN PO PAIN LEVEL 6 -10 Last administered on 06/04/17 08:42; Admin Dose 2 TAB; Start 06/01/17 at 11: 30 Docusate Sodium (Colace) 100 mg BID PO Last administered on 06/04/17 08:41; Admin Dose 100 MG; Start 06/01/17 at 21:00 Senna (Senokot) 1 tab DAILY PO Last administered on 06/04/17 08:40; Admin Dose 1 TAB; Start 06/01/17 at 21:00 Bisacodyl (Dulcolax Supp) 10 mg DAILY PRN [place] CONSTIPATION; Start 06/01/17 at 11: 30 Magnesium Hydroxide (Milk Of Mag) 30 ml DAILY PRN PO CONSTIPATION; Start at 11:30 Lactulose (Enulose) 20 gm DAILY PRN PO CONSTIPATION Last administered on 08:40; Admin Dose 20 GM; Start 06/01/17 at 11:30 Baclofen (Lioresal) 10 mg Q12H PRN PO MUSCLE SPASMS Last administered on 08:40; Admin Dose 10 MG; Start 06/01/17 at 13:00 Apixaban (Eliquis) 5 mg BID PO Last administered on 06/04/17 08:41; Admin Dose 5 MG; Start 06/02/17 at 14:30 Levofloxacin (Levaquin) 500 mg DAILY@06 PO Last administered on 06/04/17 06:47 ; Admin Dose 500 MG; Start 06/03/17 at 11:30; Stop 06/11/17 at 11:29 Ondansetron HCl (Zofran Inj) 4 mg Q4H PRN IV NAUSEA AND/OR VOMITING Last administered on 06/04/17 11:24; Admin Dose 4 MG; Start 06/04/17 at 11:30 Assessment/Plan Chief Complaint/Hosp Course IMPRESSION: 1. Recent mechanical fall requiring open reduction internal fixation of right hip fracture. 2. Chronic atrial fibrillation. 3. 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 4. Thyroid function test abnormalities ? secondary to amiodarone. PLAN: 1. Continue PT. 2. Anticoagulation held secondary to fall risk. 3. DVT and GI prophylaxis. 4. Endocrine consult. staff. Problems: AILYN URRUTIA MD, [facility] Jun 04, 2017 12:31
--- NOTE | 2017-06-04 12:37 | CONS ---
Date/Time of Note Date/Time of Note DATE: 06/04/17 TIME: 12:34 Consult Date/Type/Reason Admit Date/Time May 31, 2017 at 12:40 Type of Consultation: IM Ordering Provider: GONZALO BAUGH MD Subjective Therapy reports orthostatic hypotension Objective Lungs clear abdomen soft Max assist transfer Vital Signs Date Time Temp Pulse Resp B/P Pulse Ox O2 Delivery O2 Flow Rate FiO2 06/04/17 08:11 97.9 73 18 110/60 94 Room Air Intake and Output 06/03/17 06/03/17 06/04/17 15:00 23:00 07:00 Intake Total 540 ml 200 ml Output Total 600 ml Balance 540 ml -400 ml Results/Medications Result Diagram: 06/01/1763206/01/17 06 Medications Current Medications Amiodarone HCl (Cordarone) 200 mg BID PO Last administered on 06/04/17 08:42; Admin Dose 200 MG; Start 05/31/17 at 14:43 Ferrous Sulfate (Ferrous Sulfate (Ec)) 325 mg DAILY PO Last administered on 08:40; Admin Dose 325 MG; Start 05/31/17 at 14:43 Mexiletine HCl (Mexitil) 150 mg DAILY PO Last administered on 06/04/17 08:41; Admin Dose 150 MG; Start 05/31/17 at 14:43 Calcium/Vitamin D (Oyster Shell/ Vit-D (250/125)) 1 tab DAILY PO Last administered on 06/04/17 08:41; Admin Dose 1 TAB; Start 05/31/17 at 14:43 Atorvastatin Calcium (Lipitor) 10 mg DAILY@21 PO Last administered on 20:34; Admin Dose 10 MG; Start 05/31/17 at 14:43 Beta Carotene (Ocuvite) 1 tab DAILY PO Last administered on 06/04/17 08:41; Admin Dose 1 TAB; Start 05/31/17 at 14:43 Acetaminophen (Tylenol Tab) 650 mg Q6H PRN PO PAIN LEVEL 1-3 OR FEVER; Start at 14:43 Salmeterol Xinafoate/ Fluticasone (Advair 250/50 Diskus) 1 inh BID INH Last administered on 06/04/17 08:38; Admin Dose 1 INH; Start 05/31/17 at 14:43 Cyanocobalamin (Vitamin B12) 500 mcg DAILY PO Last administered on 06/04/17 08 :42; Admin Dose 500 MCG; Start 05/31/17 at 14:43 Metoprolol Succinate (Toprol Xl) 25 mg BID PO Last administered on 06/04/17 08 :40; Admin Dose 25 MG; Start 05/31/17 at 14:43 Lisinopril (Zestril) 2.5 mg DAILY PO Last administered on 06/04/17 08:41; Admin Dose 2.5 MG; Start 05/31/17 at 14:43 Acetaminophen/ Hydrocodone Bitart ([place] (5/325)) 1 tab Q4H PRN PO PAIN LEVEL 1 -5; Start 06/01/17 at 13:00 Acetaminophen/ Hydrocodone Bitart ([place] (5/325)) 2 tab Q4H PRN PO PAIN LEVEL 6 -10 Last administered on 06/04/17 08:42; Admin Dose 2 TAB; Start 06/01/17 at 11: 30 Docusate Sodium (Colace) 100 mg BID PO Last administered on 06/04/17 08:41; Admin Dose 100 MG; Start 06/01/17 at 21:00 Senna (Senokot) 1 tab DAILY PO Last administered on 06/04/17 08:40; Admin Dose 1 TAB; Start 06/01/17 at 21:00 Bisacodyl (Dulcolax Supp) 10 mg DAILY PRN [place] CONSTIPATION; Start 06/01/17 at 11: 30 Magnesium Hydroxide (Milk Of Mag) 30 ml DAILY PRN PO CONSTIPATION; Start at 11:30 Lactulose (Enulose) 20 gm DAILY PRN PO CONSTIPATION Last administered on 08:40; Admin Dose 20 GM; Start 06/01/17 at 11:30 Baclofen (Lioresal) 10 mg Q12H PRN PO MUSCLE SPASMS Last administered on 08:40; Admin Dose 10 MG; Start 06/01/17 at 13:00 Apixaban (Eliquis) 5 mg BID PO Last administered on 06/04/17 08:41; Admin Dose 5 MG; Start 06/02/17 at 14:30 Levofloxacin (Levaquin) 500 mg DAILY@06 PO Last administered on 06/04/17 06:47 ; Admin Dose 500 MG; Start 06/03/17 at 11:30; Stop 06/11/17 at 11:29 Ondansetron HCl (Zofran Inj) 4 mg Q4H PRN IV NAUSEA AND/OR VOMITING Last administered on 06/04/17 11:24; Admin Dose 4 MG; Start 06/04/17 at 11:30 Assessment/Plan Additional Assessment/Plan Rehab-Right intertrochanteric and subtrochanteric hip fracture status post ORIF. Continue interdisciplinary treatment plan Acute pain syndrome-continue current medications Atrial fibrillation. COPD. History of cardiomyopathy. History of AICD. Hypertension. Hyperlipidemia. Anemia. Thyroid disease. JAYY FARIAS MD Jun 04, 2017 12:37
[2017-06-04 14:46] VITALS: BP 97/54; RESP 20
[2017-06-04 20:00] VITALS: BP 106/57; RESP 18
[2017-06-04] MEDS: ATORVASTATIN 10 MG TAB PO SCH (21:36)
[2017-06-05 02:00] VITALS: BP 125/61; RESP 18
[2017-06-05] MEDS: LEVOFLOXACIN 500 MG TAB PO SCH (06:17)
[2017-06-05 08:00] VITALS: BP 111/65; RESP 18
[2017-06-05] MEDS: BETA CAROTENE/VIT C/E/MIN TAB PO SCH (08:31)
[2017-06-05] MEDS: FERROUS SULFATE (EC) 325 MG TAB PO SCH (08:32)
[2017-06-05] MEDS: SENNA TAB PO SCH (08:32)
[2017-06-05] MEDS: HYDROCODONE/APAP (5/325) TAB PO PRN (08:32)
[2017-06-05] MEDS: DOCUSATE SODIUM 100 MG CAP PO SCH ×2 (08:32→20:35)
[2017-06-05] MEDS: CYANOCOBALAMIN 500 MCG TAB PO SCH (08:32)
[2017-06-05] MEDS: CALCIUM/VITAMIN D (250/125) TAB PO SCH (08:32)
[2017-06-05] MEDS: MEXILETINE 150 MG CAP PO SCH (08:33)
[2017-06-05] MEDS: LISINOPRIL 5 MG TAB PO SCH (08:34)
[2017-06-05] MEDS: AMIODARONE 200 MG TAB PO SCH ×2 (08:34→20:36)
[2017-06-05] MEDS: APIXABAN 5 MG TABLET PO SCH ×2 (08:35→20:35)
[2017-06-05] MEDS: SALMETEROL/FLUTICASONE 250/50 INHA INH SCH ×2 (08:35→20:35)
[2017-06-05] MEDS: METOPROLOL (XL) 25 MG TAB PO SCH (09:00)
--- NOTE | 2017-06-05 11:31 | CONS ---
Date/Time of Note Date/Time of Note DATE: 06/05/17 TIME: 11:11 Consult Date/Type/Reason Admit Date/Time May 31, 2017 at 12:40 Type of Consultation: IM Ordering Provider: GONZALO BAUGH MD Subjective Low blood pressure noted. Patient unable to continue with physical therapy as Planned. Objective Vital Signs Date Time Temp Pulse Resp B/P Pulse Ox O2 Delivery O2 Flow Rate FiO2 06/05/17 08:00 97.8 86 18 111/65 96 06/04/17 08:11 Room Air Intake and Output 06/04/17 06/04/17 06/05/17 15:00 23:00 07:00 Intake Total 120 ml 740 ml Output Total 200 ml 200 ml 200 ml Balance -80 ml -200 ml 540 ml Exam GENERAL: Elderly gentleman comfortable at rest VITAL SIGNS: per chart NECK: Supple. No JVD or lymphadenopathy. CARDIAC EXAM: S1, S2. No added sounds or murmurs. CHEST: clear bilaterally, No added sounds, rales or wheezes ABDOMEN: Soft, nontender. No guarding or rebound. EXTREMITIES: No cyanosis, clubbing or edema. NEUROLOGIC: Generalized weakness. No focal deficits. Results/Medications Result Diagram: 06/01/1763206/01/17632 Medications Current Medications Amiodarone HCl (Cordarone) 200 mg BID PO Last administered on 06/05/17 08:34; Admin Dose 200 MG; Start 05/31/17 at 14:43 Ferrous Sulfate (Ferrous Sulfate (Ec)) 325 mg DAILY PO Last administered on 08:32; Admin Dose 325 MG; Start 05/31/17 at 14:43 Mexiletine HCl (Mexitil) 150 mg DAILY PO Last administered on 06/05/17 08:33; Admin Dose 150 MG; Start 05/31/17 at 14:43 Calcium/Vitamin D (Oyster Shell/ Vit-D (250/125)) 1 tab DAILY PO Last administered on 06/05/17 08:32; Admin Dose 1 TAB; Start 05/31/17 at 14:43 Atorvastatin Calcium (Lipitor) 10 mg DAILY@21 PO Last administered on 21:36; Admin Dose 10 MG; Start 05/31/17 at 14:43 Beta Carotene (Ocuvite) 1 tab DAILY PO Last administered on 06/05/17 08:31; Admin Dose 1 TAB; Start 05/31/17 at 14:43 Acetaminophen (Tylenol Tab) 650 mg Q6H PRN PO PAIN LEVEL 1-3 OR FEVER; Start at 14:43 Salmeterol Xinafoate/ Fluticasone (Advair 250/50 Diskus) 1 inh BID INH Last administered on 06/05/17 08:35; Admin Dose 1 INH; Start 05/31/17 at 14:43 Cyanocobalamin (Vitamin B12) 500 mcg DAILY PO Last administered on 06/05/17 08 :32; Admin Dose 500 MCG; Start 05/31/17 at 14:43 Metoprolol Succinate (Toprol Xl) 25 mg BID PO Last administered on 06/04/17 21 :37; Admin Dose 25 MG; Start 05/31/17 at 14:43 Lisinopril (Zestril) 2.5 mg DAILY PO Last administered on 06/05/17 08:34; Admin Dose 2.5 MG; Start 05/31/17 at 14:43 Acetaminophen/ Hydrocodone Bitart ([place] (5/325)) 1 tab Q4H PRN PO PAIN LEVEL 1 -5; Start 06/01/17 at 13:00 Acetaminophen/ Hydrocodone Bitart ([place] (5/325)) 2 tab Q4H PRN PO PAIN LEVEL 6 -10 Last administered on 06/05/17 08:32; Admin Dose 2 TAB; Start 06/01/17 at 11: 30 Docusate Sodium (Colace) 100 mg BID PO Last administered on 06/05/17 08:32; Admin Dose 100 MG; Start 06/01/17 at 21:00 Senna (Senokot) 1 tab DAILY PO Last administered on 06/05/17 08:32; Admin Dose 1 TAB; Start 06/01/17 at 21:00 Bisacodyl (Dulcolax Supp) 10 mg DAILY PRN [place] CONSTIPATION; Start 06/01/17 at 11: 30 Magnesium Hydroxide (Milk Of Mag) 30 ml DAILY PRN PO CONSTIPATION; Start at 11:30 Lactulose (Enulose) 20 gm DAILY PRN PO CONSTIPATION Last administered on 08:40; Admin Dose 20 GM; Start 06/01/17 at 11:30 Baclofen (Lioresal) 10 mg Q12H PRN PO MUSCLE SPASMS Last administered on 08:40; Admin Dose 10 MG; Start 06/01/17 at 13:00 Apixaban (Eliquis) 5 mg BID PO Last administered on 06/05/17 08:35; Admin Dose 5 MG; Start 06/02/17 at 14:30 Levofloxacin (Levaquin) 500 mg DAILY@06 PO Last administered on 06/05/17 06:17 ; Admin Dose 500 MG; Start 06/03/17 at 11:30; Stop 06/11/17 at 11:29 Ondansetron HCl (Zofran Inj) 4 mg Q4H PRN IV NAUSEA AND/OR VOMITING Last administered on 06/04/17 11:24; Admin Dose 4 MG; Start 06/04/17 at 11:30 Assessment/Plan Chief Complaint/Hosp Course IMPRESSION: 1. Recent mechanical fall requiring open reduction internal fixation of right hip fracture. 2. Chronic atrial fibrillation. 3. 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 4. Thyroid function test abnormalities ? secondary to amiodarone. PLAN: 1. Continue PT. 2. Anticoagulation held secondary to fall risk. 3. DVT and GI prophylaxis. 4. Endocrine consult. staff. Problems: AILYN URRUTIA MD, [facility] Jun 05, 2017 11:31
--- NOTE | 2017-06-05 12:21 | CONS ---
Date/Time of Note Date/Time of Note DATE: 06/05/17 TIME: 12:20 Consult Date/Type/Reason Admit Date/Time May 31, 2017 at 12:40 Type of Consultation: IM Ordering Provider: GONZALO BAUGH MD Subjective Orthostatic Objective pulm-cta abd-soft max assist Vital Signs Date Time Temp Pulse Resp B/P Pulse Ox O2 Delivery O2 Flow Rate FiO2 06/05/17 08:00 97.8 86 18 111/65 96 06/04/17 08:11 Room Air Intake and Output 06/04/17 06/04/17 06/05/17 15:00 23:00 07:00 Intake Total 120 ml 740 ml Output Total 200 ml 200 ml 200 ml Balance -80 ml -200 ml 540 ml Results/Medications Result Diagram: 06/01/17 0633 06/01/17 0633 Medications Current Medications Amiodarone HCl (Cordarone) 200 mg BID PO Last administered on 06/05/17 08:34; Admin Dose 200 MG; Start 05/31/17 at 14:43 Ferrous Sulfate (Ferrous Sulfate (Ec)) 325 mg DAILY PO Last administered on 08:32; Admin Dose 325 MG; Start 05/31/17 at 14:43 Mexiletine HCl (Mexitil) 150 mg DAILY PO Last administered on 06/05/17 08:33; Admin Dose 150 MG; Start 05/31/17 at 14:43 Calcium/Vitamin D (Oyster Shell/ Vit-D (250/125)) 1 tab DAILY PO Last administered on 06/05/17 08:32; Admin Dose 1 TAB; Start 05/31/17 at 14:43 Atorvastatin Calcium (Lipitor) 10 mg DAILY@21 PO Last administered on 21:36; Admin Dose 10 MG; Start 05/31/17 at 14:43 Beta Carotene (Ocuvite) 1 tab DAILY PO Last administered on 06/05/17 08:31; Admin Dose 1 TAB; Start 05/31/17 at 14:43 Acetaminophen (Tylenol Tab) 650 mg Q6H PRN PO PAIN LEVEL 1-3 OR FEVER; Start at 14:43 Salmeterol Xinafoate/ Fluticasone (Advair 250/50 Diskus) 1 inh BID INH Last administered on 06/05/17 08:35; Admin Dose 1 INH; Start 05/31/17 at 14:43 Cyanocobalamin (Vitamin B12) 500 mcg DAILY PO Last administered on 06/05/17 08 :32; Admin Dose 500 MCG; Start 05/31/17 at 14:43 Lisinopril (Zestril) 2.5 mg DAILY PO Last administered on 06/05/17 08:34; Admin Dose 2.5 MG; Start 05/31/17 at 14:43 Acetaminophen/ Hydrocodone Bitart ([place] (5/325)) 1 tab Q4H PRN PO PAIN LEVEL 1 -5; Start 06/01/17 at 13:00 Acetaminophen/ Hydrocodone Bitart ([place] (5/325)) 2 tab Q4H PRN PO PAIN LEVEL 6 -10 Last administered on 06/05/17 08:32; Admin Dose 2 TAB; Start 06/01/17 at 11: 30 Docusate Sodium (Colace) 100 mg BID PO Last administered on 06/05/17 08:32; Admin Dose 100 MG; Start 06/01/17 at 21:00 Senna (Senokot) 1 tab DAILY PO Last administered on 06/05/17 08:32; Admin Dose 1 TAB; Start 06/01/17 at 21:00 Bisacodyl (Dulcolax Supp) 10 mg DAILY PRN [place] CONSTIPATION; Start 06/01/17 at 11: 30 Magnesium Hydroxide (Milk Of Mag) 30 ml DAILY PRN PO CONSTIPATION; Start at 11:30 Lactulose (Enulose) 20 gm DAILY PRN PO CONSTIPATION Last administered on 08:40; Admin Dose 20 GM; Start 06/01/17 at 11:30 Baclofen (Lioresal) 10 mg Q12H PRN PO MUSCLE SPASMS Last administered on 08:40; Admin Dose 10 MG; Start 06/01/17 at 13:00 Apixaban (Eliquis) 5 mg BID PO Last administered on 06/05/17 08:35; Admin Dose 5 MG; Start 06/02/17 at 14:30 Levofloxacin (Levaquin) 500 mg DAILY@06 PO Last administered on 06/05/17 06:17 ; Admin Dose 500 MG; Start 06/03/17 at 11:30; Stop 06/11/17 at 11:29 Ondansetron HCl (Zofran Inj) 4 mg Q4H PRN IV NAUSEA AND/OR VOMITING Last administered on 06/04/17t 11:24; Admin Dose 4 MG; Start 06/04/17 at 11:30 Assessment/Plan Additional Assessment/Plan Rehab-Right intertrochanteric and subtrochanteric hip fracture status post ORIF. Continue rehab treatment plan Orthostatic- d/w Dr. Cantu, meds adjusted Acute pain syndrome-continue current medications Atrial fibrillation. COPD. History of cardiomyopathy. History of AICD. Hypertension. Hyperlipidemia. Anemia. Thyroid disease. JAYY FARIAS MD Jun 05, 2017 12:21
[2017-06-05 14:00] VITALS: BP 99/49; RESP 18
--- NOTE | 2017-06-05 14:59 | CONS ---
Date/Time of Note Date/Time of Note DATE: 06/05/17 TIME: 14:55 Assessment/Plan Assessment/Plan Chief Complaint/Hosp Course IMPRESSION: 1. Preoperative evaluation prior to possible open reduction and internal fixation of hip.-negative trop x 3. NO cp. EF 40%. NO contraindicated valve lesions. Thus no contraindication to proceeding to or at this time on current medications without further non-invasive evaluation but given low EF and h/o arrythmias is at high risk. -Now post op s/p LE ORIF and transferred to rehab 2. Status post fall, mechanical by description. 3. History of automatic implantable cardioverter defibrillator on anti- arrythmics 4. Presumed cardiomyopathy. 5. History of atrial fibrillation/ventricular arrythmias-primary EP Dr Casanova 6. Hip fracture. 7. Dyslipidemia. 8. Cardiomyopathy-EF 40% 9. Hyperthyroid by TSH/FT4 this admit 10.Hypotension-borderline RECC: -Continue BB as tolerated for treatment of cardiomyopathy with holding of ACEI today due to low BP inhibiting PT session -follow volume status closely which is euvolemic at this tme -Continue statin -Continue mexilitene -Will continue amio for now as have sp;oken with primary EP, Dr Casanova who staes vthat patient had incessant VT refractory to ablation and only controlled with current regimen. Thus will repeat labs in 2-3 weeks and reassess for possibl resolution -PT/OT Problems: Consultation Date/Type/Reason Admit Date/Time May 31, 2017 at 12:40 Initial Consult Date 05/31/17 Type of Consultation: cardiology Reason for Consultation AF Referring Provider: GONZALO BAUGH MD Exam/Review of Systems Vital Signs Vitals Vital Signs Date Time Temp Pulse Resp B/P Pulse Ox O2 Delivery O2 Flow Rate FiO2 06/05/17 14:00 98.5 70 18 99/49 93 06/04/17 08:11 Room Air Intake and Output 06/04/17 06/04/17 06/05/17 15:00 23:00 07:00 Intake Total 120 ml 740 ml Output Total 200 ml 200 ml 200 ml Balance -80 ml -200 ml 540 ml Exam Review of Systems: CONSTITUTIONAL: No fevers, chills. PULMONARY: No sob CARDIOVASCULAR: No chest pain/palpitations GASTROINTESTINAL: No nausea/vomiting. GENITOURINARY: No hematuria/dysuria. MUSCULOSKELETAL: No myagias/arthalgias. PSYCHIATRIC: The patient denies depression. NEUROLOGIC: No weakness Constitutional: alert Psych: no complaints Head: normocephalic ENMT: mucosa pink and moist Neck: jvd, supple Respiratory: diminished breath sounds Cardiovascular: regular rate and rhythm Gastrointestinal: non-tender, soft Musculoskeletal: muscle tone (normal) Extremities: edema (none) Neurological: other (No focal deficits) Results Result Diagram: 06/01/1763206/01/17632 Medications Medications Current Medications Amiodarone HCl (Cordarone) 200 mg BID PO Last administered on 06/05/17 08:34; Admin Dose 200 MG; Start 05/31/17 at 14:43 Ferrous Sulfate (Ferrous Sulfate (Ec)) 325 mg DAILY PO Last administered on 08:32; Admin Dose 325 MG; Start 05/31/17 at 14:43 Mexiletine HCl (Mexitil) 150 mg DAILY PO Last administered on 06/05/17 08:33; Admin Dose 150 MG; Start 05/31/17 at 14:43 Calcium/Vitamin D (Oyster Shell/ Vit-D (250/125)) 1 tab DAILY PO Last administered on 06/05/17 08:32; Admin Dose 1 TAB; Start 05/31/17 at 14:43 Atorvastatin Calcium (Lipitor) 10 mg DAILY@21 PO Last administered on 21:36; Admin Dose 10 MG; Start 05/31/17 at 14:43 Beta Carotene (Ocuvite) 1 tab DAILY PO Last administered on 06/05/17 08:31; Admin Dose 1 TAB; Start 05/31/17 at 14:43 Acetaminophen (Tylenol Tab) 650 mg Q6H PRN PO PAIN LEVEL 1-3 OR FEVER; Start at 14:43 Salmeterol Xinafoate/ Fluticasone (Advair 250/50 Diskus) 1 inh BID INH Last administered on 06/05/17 08:35; Admin Dose 1 INH; Start 05/31/17 at 14:43 Cyanocobalamin (Vitamin B12) 500 mcg DAILY PO Last administered on 06/05/17 08 :32; Admin Dose 500 MCG; Start 05/31/17 at 14:43 Lisinopril (Zestril) 2.5 mg DAILY PO Last administered on 06/05/17 08:34; Admin Dose 2.5 MG; Start 05/31/17 at 14:43 Acetaminophen/ Hydrocodone Bitart ([place] (5/325)) 1 tab Q4H PRN PO PAIN LEVEL 1 -5; Start 06/01/17 at 13:00 Acetaminophen/ Hydrocodone Bitart ([place] (5/325)) 2 tab Q4H PRN PO PAIN LEVEL 6 -10 Last administered on 06/05/17 08:32; Admin Dose 2 TAB; Start 06/01/17 at 11: 30 Docusate Sodium (Colace) 100 mg BID PO Last administered on 06/05/17 08:32; Admin Dose 100 MG; Start 06/01/17 at 21:00 Senna (Senokot) 1 tab DAILY PO Last administered on 06/05/17 08:32; Admin Dose 1 TAB; Start 06/01/17 at 21:00 Bisacodyl (Dulcolax Supp) 10 mg DAILY PRN [place] CONSTIPATION; Start 06/01/17 at 11: 30 Magnesium Hydroxide (Milk Of Mag) 30 ml DAILY PRN PO CONSTIPATION; Start at 11:30 Lactulose (Enulose) 20 gm DAILY PRN PO CONSTIPATION Last administered on 08:40; Admin Dose 20 GM; Start 06/01/17 at 11:30 Baclofen (Lioresal) 10 mg Q12H PRN PO MUSCLE SPASMS Last administered on 08:40; Admin Dose 10 MG; Start 06/01/17 at 13:00 Apixaban (Eliquis) 5 mg BID PO Last administered on 06/05/17 08:35; Admin Dose 5 MG; Start 06/02/17 at 14:30 Levofloxacin (Levaquin) 500 mg DAILY@06 PO Last administered on 06/05/17 06:17 ; Admin Dose 500 MG; Start 06/03/17 at 11:30; Stop 06/11/17 at 11:29 Ondansetron HCl (Zofran Inj) 4 mg Q4H PRN IV NAUSEA AND/OR VOMITING Last administered on 06/04/17 11:24; Admin Dose 4 MG; Start 06/04/17 at 11:30 VEDA GARCES Jun 05, 2017 14:59
[2017-06-05 20:00] VITALS: BP 130/62; RESP 18
[2017-06-05] MEDS: BALSAM PERU/CASTOR OIL 60 GM TUBE TOP SCH ×2 (20:35→20:49)
[2017-06-05] MEDS: ATORVASTATIN 10 MG TAB PO SCH (20:35)
[2017-06-06 02:00] VITALS: BP 110/65; RESP 18
[2017-06-06] MEDS: LEVOFLOXACIN 500 MG TAB PO SCH (06:46)
[2017-06-06] MEDS: HYDROCODONE/APAP (5/325) TAB PO PRN (06:48)
[2017-06-06 07:30] VITALS: BP 140/63; RESP 20
[2017-06-06] MEDS: SALMETEROL/FLUTICASONE 250/50 INHA INH SCH ×2 (08:57→20:23)
[2017-06-06] MEDS: BALSAM PERU/CASTOR OIL 60 GM TUBE TOP SCH ×2 (08:57→20:24)
[2017-06-06] MEDS: CYANOCOBALAMIN 500 MCG TAB PO SCH (08:58)
[2017-06-06] MEDS: LISINOPRIL 5 MG TAB PO SCH (08:58)
[2017-06-06] MEDS: SENNA TAB PO SCH (08:58)
[2017-06-06] MEDS: FERROUS SULFATE (EC) 325 MG TAB PO SCH (08:58)
[2017-06-06] MEDS: BETA CAROTENE/VIT C/E/MIN TAB PO SCH (08:58)
[2017-06-06] MEDS: APIXABAN 5 MG TABLET PO SCH ×2 (08:58→20:23)
[2017-06-06] MEDS: MEXILETINE 150 MG CAP PO SCH (08:59)
[2017-06-06] MEDS: CALCIUM/VITAMIN D (250/125) TAB PO SCH (08:59)
[2017-06-06] MEDS: DOCUSATE SODIUM 100 MG CAP PO SCH ×2 (08:59→20:23)
[2017-06-06] MEDS: AMIODARONE 200 MG TAB PO SCH ×2 (08:59→20:24)
--- NOTE | 2017-06-06 11:17 | CONS ---
Date/Time of Note Date/Time of Note DATE: 06/06/17 TIME: 11:14 Consult Date/Type/Reason Admit Date/Time May 31, 2017 at 12:40 Type of Consultation: internal medicine Ordering Provider: GONZALO BAUGH MD Subjective Patient feels okay this morning. Objective Vital Signs Date Time Temp Pulse Resp B/P Pulse Ox O2 Delivery O2 Flow Rate FiO2 06/06/17 07:30 98.8 71 20 140/63 95 06/04/17 08:11 Room Air Intake and Output 06/05/17 06/05/17 06/06/17 15:00 23:00 07:00 Intake Total 620 ml 650 ml Output Total 200 ml Balance 420 ml 650 ml Exam GENERAL: Elderly gentleman comfortable at rest VITAL SIGNS: per chart NECK: Supple. No JVD or lymphadenopathy. CARDIAC EXAM: S1, S2. No added sounds or murmurs. CHEST: clear bilaterally, No added sounds, rales or wheezes ABDOMEN: Soft, nontender. No guarding or rebound. EXTREMITIES: No cyanosis, clubbing or edema. NEUROLOGIC: Generalized weakness. No focal deficits. Results/Medications Medications Current Medications Amiodarone HCl (Cordarone) 200 mg BID PO Last administered on 06/06/17 08:59; Admin Dose 200 MG; Start 05/31/17 at 14:43 Ferrous Sulfate (Ferrous Sulfate (Ec)) 325 mg DAILY PO Last administered on 08:58; Admin Dose 325 MG; Start 05/31/17 at 14:43 Mexiletine HCl (Mexitil) 150 mg DAILY PO Last administered on 06/06/17 08:59; Admin Dose 150 MG; Start 05/31/17 at 14:43 Calcium/Vitamin D ([place] Shell/ Vit-D (250/125)) 1 tab DAILY PO Last administered on 06/06/17 08:59; Admin Dose 1 TAB; Start 05/31/17 at 14:43 Atorvastatin Calcium (Lipitor) 10 mg DAILY@21 PO Last administered on 20:35; Admin Dose 10 MG; Start 05/31/17 at 14:43 Beta Carotene (Ocuvite) 1 tab DAILY PO Last administered on 06/06/17 08:58; Admin Dose 1 TAB; Start 05/31/17 at 14:43 Acetaminophen (Tylenol Tab) 650 mg Q6H PRN PO PAIN LEVEL 1-3 OR FEVER; Start at 14:43 Salmeterol Xinafoate/ Fluticasone (Advair 250/50 Diskus) 1 inh BID INH Last administered on 06/06/17 08:57; Admin Dose 1 INH; Start 05/31/17 at 14:43 Cyanocobalamin (Vitamin B12) 500 mcg DAILY PO Last administered on 06/06/17 08 :58; Admin Dose 500 MCG; Start 05/31/17 at 14:43 Lisinopril (Zestril) 2.5 mg DAILY PO Last administered on 06/06/17 08:58; Admin Dose 2.5 MG; Start 05/31/17 at 14:43 Acetaminophen/ Hydrocodone Bitart ([place] (5/325)) 1 tab Q4H PRN PO PAIN LEVEL 1 -5 Last administered on 06/06/17 06:48; Admin Dose 1 TAB; Start 06/01/17 at 13: 00 Acetaminophen/ Hydrocodone Bitart ([place] (5/325)) 2 tab Q4H PRN PO PAIN LEVEL 6 -10 Last administered on 06/05/17 08:32; Admin Dose 2 TAB; Start 06/01/17 at 11: 30 Docusate Sodium (Colace) 100 mg BID PO Last administered on 06/06/17 08:59; Admin Dose 100 MG; Start 06/01/17 at 21:00 Senna (Senokot) 1 tab DAILY PO Last administered on 06/06/17 08:58; Admin Dose 1 TAB; Start 06/01/17 at 21:00 Bisacodyl (Dulcolax Supp) 10 mg DAILY PRN [place] CONSTIPATION; Start 06/01/17 at 11: 30 Magnesium Hydroxide (Milk Of Mag) 30 ml DAILY PRN PO CONSTIPATION; Start at 11:30 Lactulose (Enulose) 20 gm DAILY PRN PO CONSTIPATION Last administered on 08:40; Admin Dose 20 GM; Start 06/01/17 at 11:30 Baclofen (Lioresal) 10 mg Q12H PRN PO MUSCLE SPASMS Last administered on 08:40; Admin Dose 10 MG; Start 06/01/17 at 13:00 Apixaban (Eliquis) 5 mg BID PO Last administered on 06/06/17 08:58; Admin Dose 5 MG; Start 06/02/17 at 14:30 Levofloxacin (Levaquin) 500 mg DAILY@06 PO Last administered on 06/06/17 06:46 ; Admin Dose 500 MG; Start 06/03/17 at 11:30; Stop 06/11/17 at 11:29 Ondansetron HCl (Zofran Inj) 4 mg Q4H PRN IV NAUSEA AND/OR VOMITING Last administered on 06/04/17 11:24; Admin Dose 4 MG; Start 06/04/17 at 11:30 Assessment/Plan Chief Complaint/Hosp Course IMPRESSION: 1. Recent mechanical fall requiring open reduction internal fixation of right hip fracture. 2. Chronic atrial fibrillation. 3. 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 4. Thyroid function test abnormalities ? secondary to amiodarone. PLAN: 1. Continue PT. 2. Anticoagulation held secondary to fall risk. 3. DVT and GI prophylaxis. 4. Endocrine consult. 5. Hypotension noted. Beta-fuad was held with improved blood pressure this morning. Will discuss with cardiology regarding holding beta fuad versus DORA inhibitor. Problems: AILYN URRUTIA MD, [facility] Jun 06, 2017 11:17
--- NOTE | 2017-06-06 13:40 | CONS ---
Date/Time of Note Date/Time of Note DATE: 06/06/17 TIME: 13:40 Consult Date/Type/Reason Admit Date/Time May 31, 2017 at 12:40 Type of Consultation: internal medicine Ordering Provider: GONZALO BAUGH MD Subjective Comfortable Objective pulm-cta abd- soft Vital Signs Date Time Temp Pulse Resp B/P Pulse Ox O2 Delivery O2 Flow Rate FiO2 06/06/17 07:30 98.8 71 20 140/63 95 06/04/17 08:11 Room Air Intake and Output 06/05/17 06/05/17 06/06/17 15:00 23:00 07:00 Intake Total 620 ml 650 ml Output Total 200 ml Balance 420 ml 650 ml Results/Medications Medications Current Medications Amiodarone HCl (Cordarone) 200 mg BID PO Last administered on 06/06/17 08:59; Admin Dose 200 MG; Start 05/31/17 at 14:43 Ferrous Sulfate (Ferrous Sulfate (Ec)) 325 mg DAILY PO Last administered on 08:58; Admin Dose 325 MG; Start 05/31/17 at 14:43 Mexiletine HCl (Mexitil) 150 mg DAILY PO Last administered on 06/06/17 08:59; Admin Dose 150 MG; Start 05/31/17 at 14:43 Calcium/Vitamin D ([place]yster Shell/ Vit-D (250/125)) 1 tab DAILY PO Last administered on 06/06/17 08:59; Admin Dose 1 TAB; Start 05/31/17 at 14:43 Atorvastatin Calcium (Lipitor) 10 mg DAILY@21 PO Last administered on 20:35; Admin Dose 10 MG; Start 05/31/17 at 14:43 Beta Carotene (Ocuvite) 1 tab DAILY PO Last administered on 06/06/17 08:58; Admin Dose 1 TAB; Start 05/31/17 at 14:43 Acetaminophen (Tylenol Tab) 650 mg Q6H PRN PO PAIN LEVEL 1-3 OR FEVER; Start at 14:43 Salmeterol Xinafoate/ Fluticasone (Advair 250/50 Diskus) 1 inh BID INH Last administered on 06/06/17 08:57; Admin Dose 1 INH; Start 05/31/17 at 14:43 Cyanocobalamin (Vitamin B12) 500 mcg DAILY PO Last administered on 06/06/17 08 :58; Admin Dose 500 MCG; Start 05/31/17 at 14:43 Lisinopril (Zestril) 2.5 mg DAILY PO Last administered on 06/06/17 08:58; Admin Dose 2.5 MG; Start 05/31/17 at 14:43 Acetaminophen/ Hydrocodone Bitart ([place] (5/325)) 1 tab Q4H PRN PO PAIN LEVEL 1 -5 Last administered on 06/06/17 06:48; Admin Dose 1 TAB; Start 06/01/17 at 13: 00 Acetaminophen/ Hydrocodone Bitart ([place] (5/325)) 2 tab Q4H PRN PO PAIN LEVEL 6 -10 Last administered on 06/05/17 08:32; Admin Dose 2 TAB; Start 06/01/17 at 11: 30 Docusate Sodium (Colace) 100 mg BID PO Last administered on 06/06/17 08:59; Admin Dose 100 MG; Start 06/01/17 at 21:00 Senna (Senokot) 1 tab DAILY PO Last administered on 06/06/17 08:58; Admin Dose 1 TAB; Start 06/01/17 at 21:00 Bisacodyl (Dulcolax Supp) 10 mg DAILY PRN [place] CONSTIPATION; Start 06/01/17 at 11: 30 Magnesium Hydroxide (Milk Of Mag) 30 ml DAILY PRN PO CONSTIPATION; Start at 11:30 Lactulose (Enulose) 20 gm DAILY PRN PO CONSTIPATION Last administered on 08:40; Admin Dose 20 GM; Start 06/01/17 at 11:30 Baclofen (Lioresal) 10 mg Q12H PRN PO MUSCLE SPASMS Last administered on 08:40; Admin Dose 10 MG; Start 06/01/17 at 13:00 Apixaban (Eliquis) 5 mg BID PO Last administered on 06/06/17 08:58; Admin Dose 5 MG; Start 06/02/17 at 14:30 Levofloxacin (Levaquin) 500 mg DAILY@06 PO Last administered on 06/06/17 06:46 ; Admin Dose 500 MG; Start 06/03/17 at 11:30; Stop 06/11/17 at 11:29 Ondansetron HCl (Zofran Inj) 4 mg Q4H PRN IV NAUSEA AND/OR VOMITING Last administered on 06/04/17t 11:24; Admin Dose 4 MG; Start 06/04/17 at 11:30 Assessment/Plan Additional Assessment/Plan Rehab-Right intertrochanteric and subtrochanteric hip fracture status post ORIF. Continue rehab treatment plan Orthostatic- improving Acute pain syndrome-continue current medications Atrial fibrillation. COPD. History of cardiomyopathy. History of AICD. Hypertension. Hyperlipidemia. Anemia. Thyroid disease. JAYY FARIAS MD Jun 06, 2017 13:40
[2017-06-06 20:00] VITALS: BP 139/65; RESP 18
[2017-06-06] MEDS: ATORVASTATIN 10 MG TAB PO SCH (20:23)
--- NOTE | 2017-06-06 20:47 | CONS ---
Date/Time of Note Date/Time of Note DATE: 06/06/17 TIME: 20:44 Assessment/Plan Assessment/Plan Chief Complaint/Hosp Course IMPRESSION: 1. Preoperative evaluation prior to possible open reduction and internal fixation of hip.-negative trop x 3. NO cp. EF 40%. NO contraindicated valve lesions. Thus no contraindication to proceeding to or at this time on current medications without further non-invasive evaluation but given low EF and h/o arrythmias is at high risk. -Now post op s/p LE ORIF and transferred to rehab 2. Status post fall, mechanical by description. 3. History of automatic implantable cardioverter defibrillator on anti- arrythmics 4. Presumed cardiomyopathy. 5. History of atrial fibrillation/ventricular arrythmias-primary EP Dr Casanova 6. Hip fracture. 7. Dyslipidemia. 8. Cardiomyopathy-EF 40% 9. Hyperthyroid by TSH/FT4 this admit 10.Hypotension-overall improved today with holding of BB RECC: -Continue ACEI as tolerated for treatment of cardiomyopathy with holding of BB currently due to recurrent hypotension(orthostatic) during PT session -follow volume status closely which is euvolemic at this tme -Continue statin -Continue mexilitene -Will continue amio for now as have spoken with primary EP, Dr Casanova who states that patient had incessant VT refractory to ablation and only controlled with current regimen. Thus will repeat labs in 2-3 weeks and reassess for possible resolution -PT/OT Problems: Consultation Date/Type/Reason Admit Date/Time May 31, 2017 at 12:40 Initial Consult Date 05/31/17 Type of Consultation: cardiology Reason for Consultation cardiomyopathy Referring Provider: GONZALO BAUGH MD Exam/Review of Systems Vital Signs Vitals Vital Signs Date Time Temp Pulse Resp B/P Pulse Ox O2 Delivery O2 Flow Rate FiO2 06/06/17 20:00 98.3 69 18 139/65 96 06/04/17 08:11 Room Air Intake and Output 06/05/17 06/05/17 06/06/17 15:00 23:00 07:00 Intake Total 620 ml 650 ml Output Total 200 ml Balance 420 ml 650 ml Exam Review of Systems: CONSTITUTIONAL: No fevers, chills. PULMONARY: No sob CARDIOVASCULAR: No chest pain/palpitations GASTROINTESTINAL: No nausea/vomiting. GENITOURINARY: No hematuria/dysuria. MUSCULOSKELETAL: No myagias/arthalgias. PSYCHIATRIC: The patient denies depression. NEUROLOGIC: No weakness Constitutional: alert, oriented Psych: no complaints Head: normocephalic ENMT: mucosa pink and moist Neck: jvd (9 cm water), supple Respiratory: clear to auscultation Cardiovascular: regular rate and rhythm Gastrointestinal: non-tender, soft Musculoskeletal: muscle tone (normal) Extremities: edema (none) Neurological: other (No focal deficits) Medications Medications Current Medications Amiodarone HCl (Cordarone) 200 mg BID PO Last administered on 06/06/17 20:24; Admin Dose 200 MG; Start 05/31/17 at 14:43 Ferrous Sulfate (Ferrous Sulfate (Ec)) 325 mg DAILY PO Last administered on 08:58; Admin Dose 325 MG; Start 05/31/17 at 14:43 Mexiletine HCl (Mexitil) 150 mg DAILY PO Last administered on 06/06/17 08:59; Admin Dose 150 MG; Start 05/31/17 at 14:43 Calcium/Vitamin D (Oyster Shell/ Vit-D (250/125)) 1 tab DAILY PO Last administered on 06/06/17 08:59; Admin Dose 1 TAB; Start 05/31/17 at 14:43 Atorvastatin Calcium (Lipitor) 10 mg DAILY@21 PO Last administered on 20:23; Admin Dose 10 MG; Start 05/31/17 at 14:43 Beta Carotene (Ocuvite) 1 tab DAILY PO Last administered on 06/06/17 08:58; Admin Dose 1 TAB; Start 05/31/17 at 14:43 Acetaminophen (Tylenol Tab) 650 mg Q6H PRN PO PAIN LEVEL 1-3 OR FEVER; Start at 14:43 Salmeterol Xinafoate/ Fluticasone (Advair 250/50 Diskus) 1 inh BID INH Last administered on 06/06/17 20:23; Admin Dose 1 INH; Start 05/31/17 at 14:43 Cyanocobalamin (Vitamin B12) 500 mcg DAILY PO Last administered on 06/06/17 08 :58; Admin Dose 500 MCG; Start 05/31/17 at 14:43 Lisinopril (Zestril) 2.5 mg DAILY PO Last administered on 06/06/17 08:58; Admin Dose 2.5 MG; Start 05/31/17 at 14:43 Acetaminophen/ Hydrocodone Bitart ([place] (5/325)) 1 tab Q4H PRN PO PAIN LEVEL 1 -5 Last administered on 06/06/17 06:48; Admin Dose 1 TAB; Start 06/01/17 at 13: 00 Acetaminophen/ Hydrocodone Bitart ([place] (5/325)) 2 tab Q4H PRN PO PAIN LEVEL 6 -10 Last administered on 06/05/17 08:32; Admin Dose 2 TAB; Start 06/01/17 at 11: 30 Docusate Sodium (Colace) 100 mg BID PO Last administered on 06/06/17 20:23; Admin Dose 100 MG; Start 06/01/17 at 21:00 Senna (Senokot) 1 tab DAILY PO Last administered on 06/06/17 08:58; Admin Dose 1 TAB; Start 06/01/17 at 21:00 Bisacodyl (Dulcolax Supp) 10 mg DAILY PRN [place] CONSTIPATION; Start 06/01/17 at 11: 30 Magnesium Hydroxide (Milk Of Mag) 30 ml DAILY PRN PO CONSTIPATION; Start at 11:30 Lactulose (Enulose) 20 gm DAILY PRN PO CONSTIPATION Last administered on 08:40; Admin Dose 20 GM; Start 06/01/17 at 11:30 Baclofen (Lioresal) 10 mg Q12H PRN PO MUSCLE SPASMS Last administered on 08:40; Admin Dose 10 MG; Start 06/01/17 at 13:00 Apixaban (Eliquis) 5 mg BID PO Last administered on 06/06/17 20:23; Admin Dose 5 MG; Start 06/02/17 at 14:30 Levofloxacin (Levaquin) 500 mg DAILY@06 PO Last administered on 06/06/17 06:46 ; Admin Dose 500 MG; Start 06/03/17 at 11:30; Stop 06/11/17 at 11:29 Ondansetron HCl (Zofran Inj) 4 mg Q4H PRN IV NAUSEA AND/OR VOMITING Last administered on 06/04/17 11:24; Admin Dose 4 MG; Start 06/04/17 at 11:30 VEDA GARCES Jun 06, 2017 20:47
[2017-06-07 02:00] VITALS: BP 132/67; RESP 18
[2017-06-07] MEDS: LEVOFLOXACIN 500 MG TAB PO SCH (06:19)
[2017-06-07 08:59] VITALS: BP 140/64; PULSE 69; RESP 18
[2017-06-07] MEDS: LISINOPRIL 5 MG TAB PO SCH (09:00)
[2017-06-07] MEDS: SALMETEROL/FLUTICASONE 250/50 INHA INH SCH ×2 (10:35→20:34)
[2017-06-07] MEDS: MEXILETINE 150 MG CAP PO SCH (10:37)
[2017-06-07] MEDS: APIXABAN 5 MG TABLET PO SCH ×2 (10:37→20:35)
[2017-06-07] MEDS: AMIODARONE 200 MG TAB PO SCH ×2 (10:37→20:35)
[2017-06-07] MEDS: FERROUS SULFATE (EC) 325 MG TAB PO SCH (10:38)
[2017-06-07] MEDS: BETA CAROTENE/VIT C/E/MIN TAB PO SCH (10:38)
[2017-06-07] MEDS: SENNA TAB PO SCH (10:38)
[2017-06-07] MEDS: CALCIUM/VITAMIN D (250/125) TAB PO SCH (10:38)
[2017-06-07] MEDS: CYANOCOBALAMIN 500 MCG TAB PO SCH (10:38)
[2017-06-07] MEDS: DOCUSATE SODIUM 100 MG CAP PO SCH ×2 (10:38→20:35)
[2017-06-07] MEDS: BALSAM PERU/CASTOR OIL 60 GM TUBE TOP SCH ×2 (10:39→20:39)
--- NOTE | 2017-06-07 13:34 | CONS ---
Date/Time of Note Date/Time of Note DATE: 06/07/17 TIME: 13:33 Consult Date/Type/Reason Admit Date/Time May 31, 2017 at 12:40 Type of Consultation: cardiology Ordering Provider: GONZALO BAUGH MD Subjective Motivated Objective pulm-cta max assist Vital Signs Date Time Temp Pulse Resp B/P Pulse Ox O2 Delivery O2 Flow Rate FiO2 06/07/17 08:59 98.3 69 18 140/64 94 Room Air Intake and Output 06/06/17 06/06/17 06/07/17 15:00 23:00 07:00 Intake Total 240 ml 240 ml 490 ml Output Total 1000 ml 350 ml Balance -760 ml 240 ml 140 ml Results/Medications Results 24 hrs Laboratory Tests Test 06/07/17 08:09 Bedside Glucose 108 Medications Current Medications Amiodarone HCl (Cordarone) 200 mg BID PO Last administered on 06/07/17 10:37; Admin Dose 200 MG; Start 05/31/17 at 14:43 Ferrous Sulfate (Ferrous Sulfate (Ec)) 325 mg DAILY PO Last administered on 10:38; Admin Dose 325 MG; Start 05/31/17 at 14:43 Mexiletine HCl (Mexitil) 150 mg DAILY PO Last administered on 06/07/17 10:37; Admin Dose 150 MG; Start 05/31/17 at 14:43 Calcium/Vitamin D (Oyster Shell/ Vit-D (250/125)) 1 tab DAILY PO Last administered on 06/07/17 10:38; Admin Dose 1 TAB; Start 05/31/17 at 14:43 Atorvastatin Calcium (Lipitor) 10 mg DAILY@21 PO Last administered on 20:23; Admin Dose 10 MG; Start 05/31/17 at 14:43 Beta Carotene (Ocuvite) 1 tab DAILY PO Last administered on 06/07/17 10:38; Admin Dose 1 TAB; Start 05/31/17 at 14:43 Acetaminophen (Tylenol Tab) 650 mg Q6H PRN PO PAIN LEVEL 1-3 OR FEVER; Start at 14:43 Salmeterol Xinafoate/ Fluticasone (Advair 250/50 Diskus) 1 inh BID INH Last administered on 06/07/17 10:35; Admin Dose 1 INH; Start 05/31/17 at 14:43 Cyanocobalamin (Vitamin B12) 500 mcg DAILY PO Last administered on 06/07/17 10 :38; Admin Dose 500 MCG; Start 05/31/17 at 14:43 Lisinopril (Zestril) 2.5 mg DAILY PO Last administered on 06/06/17 08:58; Admin Dose 2.5 MG; Start 05/31/17 at 14:43 Acetaminophen/ Hydrocodone Bitart ([place] (5/325)) 1 tab Q4H PRN PO PAIN LEVEL 1 -5 Last administered on 06/06/17 06:48; Admin Dose 1 TAB; Start 06/01/17 at 13: 00 Acetaminophen/ Hydrocodone Bitart ([place] (5/325)) 2 tab Q4H PRN PO PAIN LEVEL 6 -10 Last administered on 06/05/17 08:32; Admin Dose 2 TAB; Start 06/01/17 at 11: 30 Docusate Sodium (Colace) 100 mg BID PO Last administered on 06/07/17 10:38; Admin Dose 100 MG; Start 06/01/17 at 21:00 Senna (Senokot) 1 tab DAILY PO Last administered on 06/07/17 10:38; Admin Dose 1 TAB; Start 06/01/17 at 21:00 Bisacodyl (Dulcolax Supp) 10 mg DAILY PRN [place] CONSTIPATION; Start 06/01/17 at 11: 30 Magnesium Hydroxide (Milk Of Mag) 30 ml DAILY PRN PO CONSTIPATION; Start at 11:30 Lactulose (Enulose) 20 gm DAILY PRN PO CONSTIPATION Last administered on 08:40; Admin Dose 20 GM; Start 06/01/17 at 11:30 Baclofen (Lioresal) 10 mg Q12H PRN PO MUSCLE SPASMS Last administered on 08:40; Admin Dose 10 MG; Start 06/01/17 at 13:00 Apixaban (Eliquis) 5 mg BID PO Last administered on 06/07/17 10:37; Admin Dose 5 MG; Start 06/02/17 at 14:30 Levofloxacin (Levaquin) 500 mg DAILY@06 PO Last administered on 06/07/17 06:19 ; Admin Dose 500 MG; Start 06/03/17 at 11:30; Stop 06/11/17 at 11:29 Ondansetron HCl (Zofran Inj) 4 mg Q4H PRN IV NAUSEA AND/OR VOMITING Last administered on 06/04/17t 11:24; Admin Dose 4 MG; Start 06/04/17 at 11:30 Assessment/Plan Additional Assessment/Plan Rehab-Right intertrochanteric and subtrochanteric hip fracture status post ORIF. Continue rehab plan Orthostatic- better today Acute pain syndrome-continue current medications Atrial fibrillation. COPD. History of cardiomyopathy. History of AICD. Hypertension. Hyperlipidemia. Anemia. Thyroid disease. JAYY FARIAS MD Jun 07, 2017 13:33
--- NOTE | 2017-06-07 14:56 | CONS ---
Date/Time of Note Date/Time of Note DATE: 06/07/17 TIME: 14:54 Assessment/Plan Assessment/Plan Additional Assessment/Plan Assessment and plan; 1. Patient admitted for rehab after sustaining a fall with right hip fracture. Doing very well overall. 2. Hypertension. 3. DJD. 4. Anemia. 5. COPD Continue current treatment. Consultation Date/Type/Reason Admit Date/Time May 31, 2017 at 12:40 Initial Consult Date Type of Consultation: Internal medicine Referring Provider: GONZALO BAUGH MD 24 HR Interval Summary Free Text/Dictation Patient condition stable. Remains awake and alert. Currently eating lunch at bedside. General exam; elderly male, awake and alert. Currently in no distress. Exam/Review of Systems Vital Signs Vitals Vital Signs Date Time Temp Pulse Resp B/P Pulse Ox O2 Delivery O2 Flow Rate FiO2 06/07/17 08:59 98.3 69 18 140/64 94 Room Air Intake and Output 06/06/17 06/06/17 06/07/17 15:00 23:00 07:00 Intake Total 240 ml 240 ml 490 ml Output Total 1000 ml 350 ml Balance -760 ml 240 ml 140 ml Exam HEENT exam; supple neck, no JVD. No lymphadenopathy. Midline trachea. No thyromegaly. Patient has bilateral intraocular lens implants. Chest exam; clear to auscultation. S1-S2 audible, no murmurs. Regular rhythm. Abdomen exam; soft, no organomegaly. Bowel sounds audible. Extremity exam; no peripheral edema. DIVER'S TENDER exam; no focal deficit. Results Results 24 hrs Laboratory Tests Test 06/07/17 08:09 Bedside Glucose 108 Medications Medications Current Medications Amiodarone HCl (Cordarone) 200 mg BID PO Last administered on 06/07/17 10:37; Admin Dose 200 MG; Start 05/31/17 at 14:43 Ferrous Sulfate (Ferrous Sulfate (Ec)) 325 mg DAILY PO Last administered on 10:38; Admin Dose 325 MG; Start 05/31/17 at 14:43 Mexiletine HCl (Mexitil) 150 mg DAILY PO Last administered on 06/07/17 10:37; Admin Dose 150 MG; Start 05/31/17 at 14:43 Calcium/Vitamin D (Oyster Shell/ Vit-D (250/125)) 1 tab DAILY PO Last administered on 06/07/17 10:38; Admin Dose 1 TAB; Start 05/31/17 at 14:43 Atorvastatin Calcium (Lipitor) 10 mg DAILY@21 PO Last administered on 20:23; Admin Dose 10 MG; Start 05/31/17 at 14:43 Beta Carotene (Ocuvite) 1 tab DAILY PO Last administered on 06/07/17 10:38; Admin Dose 1 TAB; Start 05/31/17 at 14:43 Acetaminophen (Tylenol Tab) 650 mg Q6H PRN PO PAIN LEVEL 1-3 OR FEVER; Start at 14:43 Salmeterol Xinafoate/ Fluticasone (Advair 250/50 Diskus) 1 inh BID INH Last administered on 06/07/17 10:35; Admin Dose 1 INH; Start 05/31/17 at 14:43 Cyanocobalamin (Vitamin B12) 500 mcg DAILY PO Last administered on 06/07/17 10 :38; Admin Dose 500 MCG; Start 05/31/17 at 14:43 Lisinopril (Zestril) 2.5 mg DAILY PO Last administered on 06/06/17 08:58; Admin Dose 2.5 MG; Start 05/31/17 at 14:43 Acetaminophen/ Hydrocodone Bitart ([place] (5/325)) 1 tab Q4H PRN PO PAIN LEVEL 1 -5 Last administered on 06/06/17 06:48; Admin Dose 1 TAB; Start 06/01/17 at 13: 00 Acetaminophen/ Hydrocodone Bitart ([place] (5/325)) 2 tab Q4H PRN PO PAIN LEVEL 6 -10 Last administered on 06/05/17 08:32; Admin Dose 2 TAB; Start 06/01/17 at 11: 30 Docusate Sodium (Colace) 100 mg BID PO Last administered on 06/07/17 10:38; Admin Dose 100 MG; Start 06/01/17 at 21:00 Senna (Senokot) 1 tab DAILY PO Last administered on 06/07/17 10:38; Admin Dose 1 TAB; Start 06/01/17 at 21:00 Bisacodyl (Dulcolax Supp) 10 mg DAILY PRN [place] CONSTIPATION; Start 06/01/17 at 11: 30 Magnesium Hydroxide (Milk Of Mag) 30 ml DAILY PRN PO CONSTIPATION; Start at 11:30 Lactulose (Enulose) 20 gm DAILY PRN PO CONSTIPATION Last administered on 08:40; Admin Dose 20 GM; Start 06/01/17 at 11:30 Baclofen (Lioresal) 10 mg Q12H PRN PO MUSCLE SPASMS Last administered on 08:40; Admin Dose 10 MG; Start 06/01/17 at 13:00 Apixaban (Eliquis) 5 mg BID PO Last administered on 06/07/17 10:37; Admin Dose 5 MG; Start 06/02/17 at 14:30 Levofloxacin (Levaquin) 500 mg DAILY@06 PO Last administered on 06/07/17 06:19 ; Admin Dose 500 MG; Start 06/03/17 at 11:30; Stop 06/11/17 at 11:29 Ondansetron HCl (Zofran Inj) 4 mg Q4H PRN IV NAUSEA AND/OR VOMITING Last administered on 06/04/17 11:24; Admin Dose 4 MG; Start 06/04/17 at 11:30 ALEXUS YANES Jun 07, 2017 14:56
--- NOTE | 2017-06-07 15:48 | CONS ---
Date/Time of Note Date/Time of Note DATE: 06/07/17 TIME: 15:47 Assessment/Plan Assessment/Plan Additional Assessment/Plan 1. Preoperative evaluation prior to possible open reduction and internal fixation of hip.-negative trop x 3. NO cp. EF 40%. NO contraindicated valve lesions. Thus no contraindication to proceeding to or at this time on current medications without further non-invasive evaluation but given low EF and h/o arrythmias is at high risk. -Now post op s/p LE ORIF and transferred to rehab - COMPLIANT WITH REHAB, doing well. 2. Status post fall, mechanical by description- no cardiac instability noted. 3. History of automatic implantable cardioverter defibrillator on anti- arrythmics - NO NEW arrhythmia noted. 4. Presumed cardiomyopathy - stable fluid satus now. 5. History of atrial fibrillation/ventricular arrythmias-primary EP Dr Edilberto - rate controlled 6. Hip fracture. 7. Dyslipidemia. 8. Cardiomyopathy-EF 40% 9. Hyperthyroid by TSH/FT4 this admit Consultation Date/Type/Reason Admit Date/Time May 31, 2017 at 12:40 Type of Consultation: Internal medicine Referring Provider: GONZALO BAUGH MD 24 HR Interval Summary Free Text/Dictation NO acute events - pt stable - compliant with rehab. ROS: No fever, no chills, no nausea, no vomiting, no diarrhea/constipation No recent weight changes No chest pain, no PND, no orthopnea No dizziness, blurred vision No thirst, no heat or cold intolerance Exam/Review of Systems Vital Signs Vitals Vital Signs Date Time Temp Pulse Resp B/P Pulse Ox O2 Delivery O2 Flow Rate FiO2 06/07/17 08:59 98.3 69 18 140/64 94 Room Air Intake and Output 06/06/17 06/06/17 06/07/17 15:00 23:00 07:00 Intake Total 240 ml 240 ml 490 ml Output Total 1000 ml 350 ml Balance -760 ml 240 ml 140 ml Exam General: WN/WD/NAD, AOx 2-3 HEENT: Unicetric/atraumatic/EOMI (follow commands) NECK: JVD elevated, no thyromegaly Lymph: no lymphadenopathy HEART: regular with no S3, II/ systolic murmur at apex LUNGS: Coarse sounds ABD: soft, NT, ND, +BS : Intact Neuro: non focal SKIN: chronic changes EXT: trace edema Results Results 24 hrs Laboratory Tests Test 06/07/17 08:09 Bedside Glucose 108 Medications Medications Current Medications Amiodarone HCl (Cordarone) 200 mg BID PO Last administered on 06/07/17 10:37; Admin Dose 200 MG; Start 05/31/17 at 14:43 Ferrous Sulfate (Ferrous Sulfate (Ec)) 325 mg DAILY PO Last administered on 10:38; Admin Dose 325 MG; Start 05/31/17 at 14:43 Mexiletine HCl (Mexitil) 150 mg DAILY PO Last administered on 06/07/17 10:37; Admin Dose 150 MG; Start 05/31/17 at 14:43 Calcium/Vitamin D (Oyster Shell/ Vit-D (250/125)) 1 tab DAILY PO Last administered on 06/07/17 10:38; Admin Dose 1 TAB; Start 05/31/17 at 14:43 Atorvastatin Calcium (Lipitor) 10 mg DAILY@21 PO Last administered on 20:23; Admin Dose 10 MG; Start 05/31/17 at 14:43 Beta Carotene (Ocuvite) 1 tab DAILY PO Last administered on 06/07/17 10:38; Admin Dose 1 TAB; Start 05/31/17 at 14:43 Acetaminophen (Tylenol Tab) 650 mg Q6H PRN PO PAIN LEVEL 1-3 OR FEVER; Start at 14:43 Salmeterol Xinafoate/ Fluticasone (Advair 250/50 Diskus) 1 inh BID INH Last administered on 06/07/17 10:35; Admin Dose 1 INH; Start 05/31/17 at 14:43 Cyanocobalamin (Vitamin B12) 500 mcg DAILY PO Last administered on 06/07/17 10 :38; Admin Dose 500 MCG; Start 05/31/17 at 14:43 Lisinopril (Zestril) 2.5 mg DAILY PO Last administered on 06/06/17 08:58; Admin Dose 2.5 MG; Start 05/31/17 at 14:43 Acetaminophen/ Hydrocodone Bitart ([place] (5/325)) 1 tab Q4H PRN PO PAIN LEVEL 1 -5 Last administered on 06/06/17 06:48; Admin Dose 1 TAB; Start 06/01/17 at 13: 00 Acetaminophen/ Hydrocodone Bitart ([place] (5/325)) 2 tab Q4H PRN PO PAIN LEVEL 6 -10 Last administered on 06/05/17 08:32; Admin Dose 2 TAB; Start 06/01/17 at 11: 30 Docusate Sodium (Colace) 100 mg BID PO Last administered on 06/07/17 10:38; Admin Dose 100 MG; Start 06/01/17 at 21:00 Senna (Senokot) 1 tab DAILY PO Last administered on 06/07/17 10:38; Admin Dose 1 TAB; Start 06/01/17 at 21:00 Bisacodyl (Dulcolax Supp) 10 mg DAILY PRN [place] CONSTIPATION; Start 06/01/17 at 11: 30 Magnesium Hydroxide (Milk Of Mag) 30 ml DAILY PRN PO CONSTIPATION; Start at 11:30 Lactulose (Enulose) 20 gm DAILY PRN PO CONSTIPATION Last administered on 08:40; Admin Dose 20 GM; Start 06/01/17 at 11:30 Baclofen (Lioresal) 10 mg Q12H PRN PO MUSCLE SPASMS Last administered on 08:40; Admin Dose 10 MG; Start 06/01/17 at 13:00 Apixaban (Eliquis) 5 mg BID PO Last administered on 06/07/17 10:37; Admin Dose 5 MG; Start 06/02/17 at 14:30 Levofloxacin (Levaquin) 500 mg DAILY@06 PO Last administered on 06/07/17 06:19 ; Admin Dose 500 MG; Start 06/03/17 at 11:30; Stop 06/11/17 at 11:29 Ondansetron HCl (Zofran Inj) 4 mg Q4H PRN IV NAUSEA AND/OR VOMITING Last administered on 06/04/17 11:24; Admin Dose 4 MG; Start 06/04/17 at 11:30 CELSO CABALLERO MD Jun 07, 2017 15:48
[2017-06-07 16:30] VITALS: BP 131/60; RESP 18
[2017-06-07 20:00] VITALS: BP 123/60; RESP 18
[2017-06-07] MEDS: ATORVASTATIN 10 MG TAB PO SCH (20:34)
[2017-06-08] MEDS: LEVOFLOXACIN 500 MG TAB PO SCH (05:49)
[2017-06-08 07:30] VITALS: BP 125/87; RESP 20
[2017-06-08] MEDS: LISINOPRIL 5 MG TAB PO SCH (09:00)
[2017-06-08] MEDS: AMIODARONE 200 MG TAB PO SCH ×3 (09:00→20:41)
[2017-06-08] MEDS: MEXILETINE 150 MG CAP PO SCH (09:10)
[2017-06-08] MEDS: FERROUS SULFATE (EC) 325 MG TAB PO SCH (09:10)
[2017-06-08] MEDS: BETA CAROTENE/VIT C/E/MIN TAB PO SCH (09:10)
[2017-06-08] MEDS: APIXABAN 5 MG TABLET PO SCH ×2 (09:10→20:41)
[2017-06-08] MEDS: CALCIUM/VITAMIN D (250/125) TAB PO SCH (09:10)
[2017-06-08] MEDS: CYANOCOBALAMIN 500 MCG TAB PO SCH (09:10)
[2017-06-08] MEDS: SENNA TAB PO SCH (09:11)
[2017-06-08] MEDS: BALSAM PERU/CASTOR OIL 60 GM TUBE TOP SCH ×2 (09:11→20:42)
[2017-06-08] MEDS: SALMETEROL/FLUTICASONE 250/50 INHA INH SCH ×2 (09:11→20:42)
[2017-06-08] MEDS: DOCUSATE SODIUM 100 MG CAP PO SCH ×2 (09:12→20:41)
--- NOTE | 2017-06-08 10:29 | CONS ---
Date/Time of Note Date/Time of Note DATE: 06/08/17 TIME: 10:28 Consult Date/Type/Reason Admit Date/Time May 31, 2017 at 12:40 Type of Consultation: Internal medicine Ordering Provider: GONZALO BAUGH MD Subjective Comfortable Objective pulm-cta max assist Vital Signs Date Time Temp Pulse Resp B/P Pulse Ox O2 Delivery O2 Flow Rate FiO2 06/08/17 07:30 98.3 70 20 125/87 95 06/07/17 08:59 Room Air Intake and Output 06/07/17 06/07/17 06/08/17 15:00 23:00 07:00 Intake Total 600 ml Output Total 200 ml 700 ml Balance -200 ml -100 ml Results/Medications Results 24 hrs Laboratory Tests Test 06/08/17 06:20 Free Thyroxine 2.69 H Free Triiodothyronine (T3) pg/mL 2.74 L Medications Current Medications Amiodarone HCl (Cordarone) 200 mg BID PO Last administered on 06/07/17 20:35; Admin Dose 200 MG; Start 05/31/17 at 14:43 Ferrous Sulfate (Ferrous Sulfate (Ec)) 325 mg DAILY PO Last administered on 09:10; Admin Dose 325 MG; Start 05/31/17 at 14:43 Mexiletine HCl (Mexitil) 150 mg DAILY PO Last administered on 06/08/17 09:10; Admin Dose 150 MG; Start 05/31/17 at 14:43 Calcium/Vitamin D (Oyster Shell/ Vit-D (250/125)) 1 tab DAILY PO Last administered on 06/08/17 09:10; Admin Dose 1 TAB; Start 05/31/17 at 14:43 Atorvastatin Calcium (Lipitor) 10 mg DAILY@21 PO Last administered on 20:34; Admin Dose 10 MG; Start 05/31/17 at 14:43 Beta Carotene (Ocuvite) 1 tab DAILY PO Last administered on 06/08/17 09:10; Admin Dose 1 TAB; Start 05/31/17 at 14:43 Acetaminophen (Tylenol Tab) 650 mg Q6H PRN PO PAIN LEVEL 1-3 OR FEVER; Start at 14:43 Salmeterol Xinafoate/ Fluticasone (Advair 250/50 Diskus) 1 inh BID INH Last administered on 06/08/17 09:11; Admin Dose 1 INH; Start 05/31/17 at 14:43 Cyanocobalamin (Vitamin B12) 500 mcg DAILY PO Last administered on 06/08/17 09 :10; Admin Dose 500 MCG; Start 05/31/17 at 14:43 Lisinopril (Zestril) 2.5 mg DAILY PO Last administered on 06/06/17 08:58; Admin Dose 2.5 MG; Start 05/31/17 at 14:43 Acetaminophen/ Hydrocodone Bitart ([place] (5/325)) 1 tab Q4H PRN PO PAIN LEVEL 1 -5 Last administered on 06/06/17 06:48; Admin Dose 1 TAB; Start 06/01/17 at 13: 00 Acetaminophen/ Hydrocodone Bitart ([place] (5/325)) 2 tab Q4H PRN PO PAIN LEVEL 6 -10 Last administered on 06/05/17 08:32; Admin Dose 2 TAB; Start 06/01/17 at 11: 30 Docusate Sodium (Colace) 100 mg BID PO Last administered on 06/08/17 09:12; Admin Dose 100 MG; Start 06/01/17 at 21:00 Senna (Senokot) 1 tab DAILY PO Last administered on 06/08/17 09:11; Admin Dose 1 TAB; Start 06/01/17 at 21:00 Bisacodyl (Dulcolax Supp) 10 mg DAILY PRN [place] CONSTIPATION; Start 06/01/17 at 11: 30 Magnesium Hydroxide (Milk Of Mag) 30 ml DAILY PRN PO CONSTIPATION; Start at 11:30 Lactulose (Enulose) 20 gm DAILY PRN PO CONSTIPATION Last administered on 08:40; Admin Dose 20 GM; Start 06/01/17 at 11:30 Baclofen (Lioresal) 10 mg Q12H PRN PO MUSCLE SPASMS Last administered on 08:40; Admin Dose 10 MG; Start 06/01/17 at 13:00 Apixaban (Eliquis) 5 mg BID PO Last administered on 06/08/17 09:10; Admin Dose 5 MG; Start 06/02/17 at 14:30 Levofloxacin (Levaquin) 500 mg DAILY@06 PO Last administered on 06/08/17 05:49 ; Admin Dose 500 MG; Start 06/03/17 at 11:30; Stop 06/11/17 at 11:29 Ondansetron HCl (Zofran Inj) 4 mg Q4H PRN IV NAUSEA AND/OR VOMITING Last administered on 06/04/17 11:24; Admin Dose 4 MG; Start 06/04/17 at 11:30 Assessment/Plan Additional Assessment/Plan Rehab-Right intertrochanteric and subtrochanteric hip fracture status post ORIF. Continue rehab as tolerated Orthostatic- monitor closely Acute pain syndrome-continue current medications Atrial fibrillation. COPD. History of cardiomyopathy. History of AICD. Hypertension. Hyperlipidemia. Anemia. Thyroid disease. JAYY FARISA MD Jun 08, 2017 10:28
--- NOTE | 2017-06-08 11:10 | CONS ---
Date/Time of Note Date/Time of Note DATE: 06/08/17 TIME: 11:07 Assessment/Plan Assessment/Plan Problems: (1) Euthyroid sick syndrome Status: Chronic Comment: His labs are consistent with euthyroid sick syndrome being driven by the amiodarone changing the displacement on thyroid binding globulin. This patient is clinically and biochemically euthyroid and no intervention needs to be undertaken. Consultation Date/Type/Reason Admit Date/Time May 31, 2017 at 12:40 Date of Consultation: Jun 07, 2017 Type of Consultation: Endocrinology Reason for Consultation Abnormal thyroid function tests in a patient on long-term amiodarone Referring Provider: AILYN URRUTIA MD, [facility] Hx of Present Illness Patient without any history of prior known thyroid disease. He has been on amiodarone and is also been in the hospital. He has a negative endocrine review of systems negative neurologic review of systems negative cardiac review of systems Psychological: no complaints Past Medical History As outlined in prior notes including A. fib etc. Social History Smoking Status: Never smoker Exam/Review of Systems Vital Signs Vitals Vital Signs Date Time Temp Pulse Resp B/P Pulse Ox O2 Delivery O2 Flow Rate FiO2 06/08/17 07:30 98.3 70 20 125/87 95 06/07/17 08:59 Room Air Intake and Output 06/07/17 06/07/17 06/08/17 15:00 23:00 07:00 Intake Total 600 ml Output Total 200 ml 700 ml Balance -200 ml -100 ml Exam Constitutional: alert, oriented Neck: non-tender (No thyromegaly no thyroid nodule), supple Respiratory: clear to auscultation, normal air movement Results Results 24 hrs Laboratory Tests Test 06/08/17 06:20 Free Thyroxine 2.69 H Free Triiodothyronine (T3) pg/mL 2.74 L Medications Medications Current Medications Amiodarone HCl (Cordarone) 200 mg BID PO Last administered on 06/07/17 20:35; Admin Dose 200 MG; Start 05/31/17 at 14:43 Ferrous Sulfate (Ferrous Sulfate (Ec)) 325 mg DAILY PO Last administered on 09:10; Admin Dose 325 MG; Start 05/31/17 at 14:43 Mexiletine HCl (Mexitil) 150 mg DAILY PO Last administered on 06/08/17 09:10; Admin Dose 150 MG; Start 05/31/17 at 14:43 Calcium/Vitamin D (Oyster Shell/ Vit-D (250/125)) 1 tab DAILY PO Last administered on 06/08/17 09:10; Admin Dose 1 TAB; Start 05/31/17 at 14:43 Atorvastatin Calcium (Lipitor) 10 mg DAILY@21 PO Last administered on 20:34; Admin Dose 10 MG; Start 05/31/17 at 14:43 Beta Carotene (Ocuvite) 1 tab DAILY PO Last administered on 06/08/17 09:10; Admin Dose 1 TAB; Start 05/31/17 at 14:43 Acetaminophen (Tylenol Tab) 650 mg Q6H PRN PO PAIN LEVEL 1-3 OR FEVER; Start at 14:43 Salmeterol Xinafoate/ Fluticasone (Advair 250/50 Diskus) 1 inh BID INH Last administered on 06/08/17 09:11; Admin Dose 1 INH; Start 05/31/17 at 14:43 Cyanocobalamin (Vitamin B12) 500 mcg DAILY PO Last administered on 06/08/17 09 :10; Admin Dose 500 MCG; Start 05/31/17 at 14:43 Lisinopril (Zestril) 2.5 mg DAILY PO Last administered on 06/06/17 08:58; Admin Dose 2.5 MG; Start 05/31/17 at 14:43 Acetaminophen/ Hydrocodone Bitart ([place] (5/325)) 1 tab Q4H PRN PO PAIN LEVEL 1 -5 Last administered on 06/06/17 06:48; Admin Dose 1 TAB; Start 06/01/17 at 13: 00 Acetaminophen/ Hydrocodone Bitart ([place] (5/325)) 2 tab Q4H PRN PO PAIN LEVEL 6 -10 Last administered on 06/05/17 08:32; Admin Dose 2 TAB; Start 06/01/17 at 11: 30 Docusate Sodium (Colace) 100 mg BID PO Last administered on 06/08/17 09:12; Admin Dose 100 MG; Start 06/01/17 at 21:00 Senna (Senokot) 1 tab DAILY PO Last administered on 06/08/17 09:11; Admin Dose 1 TAB; Start 06/01/17 at 21:00 Bisacodyl (Dulcolax Supp) 10 mg DAILY PRN [place] CONSTIPATION; Start 06/01/17 at 11: 30 Magnesium Hydroxide (Milk Of Mag) 30 ml DAILY PRN [place] CONSTIPATION; Start at 11:30 Lactulose (Enulose) 20 gm DAILY PRN PO CONSTIPATION Last administered on 08:40; Admin Dose 20 GM; Start 06/01/17 at 11:30 Baclofen (Lioresal) 10 mg Q12H PRN PO MUSCLE SPASMS Last administered on 08:40; Admin Dose 10 MG; Start 06/01/17 at 13:00 Apixaban (Eliquis) 5 mg BID PO Last administered on 06/08/17 09:10; Admin Dose 5 MG; Start 06/02/17 at 14:30 Levofloxacin (Levaquin) 500 mg DAILY@06 PO Last administered on 06/08/17 05:49 ; Admin Dose 500 MG; Start 06/03/17 at 11:30; Stop 06/11/17 at 11:29 Ondansetron HCl (Zofran Inj) 4 mg Q4H PRN IV NAUSEA AND/OR VOMITING Last administered on 06/04/17 11:24; Admin Dose 4 MG; Start 06/04/17 at 11:30 RONA FERNANDO MD Jun 08, 2017 11:10
[2017-06-08 14:00] VITALS: BP 116/56; RESP 20
--- NOTE | 2017-06-08 15:01 | CONS ---
Date/Time of Note Date/Time of Note DATE: 06/08/17 TIME: 15:00 Assessment/Plan Assessment/Plan Additional Assessment/Plan 1. Preoperative evaluation NO cp. EF 40%. NO contraindicated valve lesions. s/ p LE ORIF and transferred to rehab - [facility], doing well. 2. Status post fall, mechanical by description- no cardiac instability noted. 3. History of automatic implantable cardioverter defibrillator on anti- arrythmics - NO NEW arrhythmia noted. GOOD FXn. 4. Presumed cardiomyopathy - stable fluid satus now. 5. History of atrial fibrillation/ventricular arrythmias-primary EP Dr Edilberto - rate controlled 6. Hip fracture. 7. Dyslipidemia. 8. Cardiomyopathy-EF 40% 9. Hyperthyroid by TSH/FT4 this admit Consultation Date/Type/Reason Admit Date/Time May 31, 2017 at 12:40 Type of Consultation: Endocrinology Referring Provider: AILYN URRUTIA MD, [facility] 24 HR Interval Summary Free Text/Dictation NO acute change - con't rehab - no CP noted. ROS: No fever, no chills, no nausea, no vomiting, no diarrhea/constipation No recent weight changes No chest pain, no PND, no orthopnea No dizziness, blurred vision No thirst, no heat or cold intolerance Exam/Review of Systems Vital Signs Vitals Vital Signs Date Time Temp Pulse Resp B/P Pulse Ox O2 Delivery O2 Flow Rate FiO2 06/08/17 07:30 98.3 70 20 125/87 95 06/07/17 08:59 Room Air Intake and Output 06/07/17 06/07/17 06/08/17 15:00 23:00 07:00 Intake Total 600 ml Output Total 200 ml 700 ml Balance -200 ml -100 ml Exam General: WN/WD/NAD, AOx 3 HEENT: Unicetric/atraumatic/EOMI (follow commands) NECK: JVD elevated, no thyromegaly Lymph: no lymphadenopathy HEART: regular with no S3, II/ systolic murmur at apex, PMI L, ICD LUNGS: Coarse sounds ABD: soft, NT, ND, +BS : Intact Neuro: non focal SKIN: chronic changes EXT: trace edema Results Results 24 hrs Laboratory Tests Test 06/08/17 06:20 Free Thyroxine 2.69 H Free Triiodothyronine (T3) pg/mL 2.74 L Medications Medications Current Medications Amiodarone HCl (Cordarone) 200 mg BID PO Last administered on 06/08/17 12:38; Admin Dose 200 MG; Start 05/31/17 at 14:43 Ferrous Sulfate (Ferrous Sulfate (Ec)) 325 mg DAILY PO Last administered on 09:10; Admin Dose 325 MG; Start 05/31/17 at 14:43 Mexiletine HCl (Mexitil) 150 mg DAILY PO Last administered on 06/08/17 09:10; Admin Dose 150 MG; Start 05/31/17 at 14:43 Calcium/Vitamin D (Oyster Shell/ Vit-D (250/125)) 1 tab DAILY PO Last administered on 06/08/17 09:10; Admin Dose 1 TAB; Start 05/31/17 at 14:43 Atorvastatin Calcium (Lipitor) 10 mg DAILY@21 PO Last administered on 20:34; Admin Dose 10 MG; Start 05/31/17 at 14:43 Beta Carotene (Ocuvite) 1 tab DAILY PO Last administered on 06/08/17 09:10; Admin Dose 1 TAB; Start 05/31/17 at 14:43 Acetaminophen (Tylenol Tab) 650 mg Q6H PRN PO PAIN LEVEL 1-3 OR FEVER; Start at 14:43 Salmeterol Xinafoate/ Fluticasone (Advair 250/50 Diskus) 1 inh BID INH Last administered on 06/08/17 09:11; Admin Dose 1 INH; Start 05/31/17 at 14:43 Cyanocobalamin (Vitamin B12) 500 mcg DAILY PO Last administered on 06/08/17 09 :10; Admin Dose 500 MCG; Start 05/31/17 at 14:43 Lisinopril (Zestril) 2.5 mg DAILY PO Last administered on 06/06/17 08:58; Admin Dose 2.5 MG; Start 05/31/17 at 14:43 Acetaminophen/ Hydrocodone Bitart ([place] (5/325)) 1 tab Q4H PRN PO PAIN LEVEL 1 -5 Last administered on 06/06/17 06:48; Admin Dose 1 TAB; Start 06/01/17 at 13: 00 Acetaminophen/ Hydrocodone Bitart ([place] (5/325)) 2 tab Q4H PRN PO PAIN LEVEL 6 -10 Last administered on 06/05/17 08:32; Admin Dose 2 TAB; Start 06/01/17 at 11: 30 Docusate Sodium (Colace) 100 mg BID PO Last administered on 06/08/17 09:12; Admin Dose 100 MG; Start 06/01/17 at 21:00 Senna (Senokot) 1 tab DAILY PO Last administered on 06/08/17 09:11; Admin Dose 1 TAB; Start 06/01/17 at 21:00 Bisacodyl (Dulcolax Supp) 10 mg DAILY PRN [place] CONSTIPATION; Start 06/01/17 at 11: 30 Magnesium Hydroxide (Milk Of Mag) 30 ml DAILY PRN PO CONSTIPATION; Start at 11:30 Lactulose (Enulose) 20 gm DAILY PRN PO CONSTIPATION Last administered on 08:40; Admin Dose 20 GM; Start 06/01/17 at 11:30 Baclofen (Lioresal) 10 mg Q12H PRN PO MUSCLE SPASMS Last administered on 08:40; Admin Dose 10 MG; Start 06/01/17 at 13:00 Apixaban (Eliquis) 5 mg BID PO Last administered on 06/08/17 09:10; Admin Dose 5 MG; Start 06/02/17 at 14:30 Levofloxacin (Levaquin) 500 mg DAILY@06 PO Last administered on 06/08/17 05:49 ; Admin Dose 500 MG; Start 06/03/17 at 11:30; Stop 06/11/17 at 11:29 Ondansetron HCl (Zofran Inj) 4 mg Q4H PRN IV NAUSEA AND/OR VOMITING Last administered on 06/04/17 11:24; Admin Dose 4 MG; Start 06/04/17 at 11:30 CELSO CABALLERO MD Jun 08, 2017 15:01
[2017-06-08] MEDS: ATORVASTATIN 10 MG TAB PO SCH (20:41)
[2017-06-08 21:30] VITALS: BP 115/56; PULSE 68; RESP 19
[2017-06-09] MEDS: LEVOFLOXACIN 500 MG TAB PO SCH (06:28)
[2017-06-09] MEDS: SALMETEROL/FLUTICASONE 250/50 INHA INH SCH ×2 (09:00→21:04)
[2017-06-09] MEDS: AMIODARONE 200 MG TAB PO SCH ×2 (09:00→21:08)
[2017-06-09] MEDS: LISINOPRIL 5 MG TAB PO SCH (09:00)
[2017-06-09] MEDS: CALCIUM/VITAMIN D (250/125) TAB PO SCH (09:01)
[2017-06-09] MEDS: SENNA TAB PO SCH (09:01)
[2017-06-09] MEDS: BETA CAROTENE/VIT C/E/MIN TAB PO SCH (09:01)
[2017-06-09] MEDS: DOCUSATE SODIUM 100 MG CAP PO SCH ×2 (09:01→21:05)
[2017-06-09] MEDS: CYANOCOBALAMIN 500 MCG TAB PO SCH (09:01)
[2017-06-09] MEDS: MEXILETINE 150 MG CAP PO SCH (09:01)
[2017-06-09] MEDS: FERROUS SULFATE (EC) 325 MG TAB PO SCH (09:01)
[2017-06-09] MEDS: APIXABAN 5 MG TABLET PO SCH ×2 (09:01→21:05)
[2017-06-09] MEDS: BALSAM PERU/CASTOR OIL 60 GM TUBE TOP SCH ×2 (09:10→21:11)
--- NOTE | 2017-06-09 13:12 | CONS ---
Date/Time of Note Date/Time of Note DATE: 06/09/17 TIME: 13:10 Assessment/Plan Assessment/Plan Additional Assessment/Plan 1. Preoperative evaluation NO cp. EF 40%. NO contraindicated valve lesions. s/ p LE ORIF and transferred to rehab - REHAB in progress, doing well. 2. Status post fall, mechanical by description- no cardiac instability noted. 3. History of automatic implantable cardioverter defibrillator on anti- arrythmics - NO NEW arrhythmia noted. GOOD FXn. 4. Presumed cardiomyopathy - stable fluid satus now. 5. History of atrial fibrillation/ventricular arrythmias-primary EP Dr Edilberto - rate controlled 6. Hip fracture- con't to recover. 7. Dyslipidemia. 8. Cardiomyopathy-EF 40% 9. Hyperthyroid by TSH/FT4 this admit Consultation Date/Type/Reason Admit Date/Time May 31, 2017 at 12:40 Type of Consultation: Endocrinology Referring Provider: AILYN URRUTIA MD, [facility] 24 HR Interval Summary Free Text/Dictation NO acute events - BP in good range - no CP now - doubt ischemia. ROS: No fever, no chills, no nausea, no vomiting, no diarrhea/constipation No recent weight changes No chest pain, no PND, no orthopnea No dizziness, blurred vision No thirst, no heat or cold intolerance Exam/Review of Systems Vital Signs Vitals Vital Signs Date Time Temp Pulse Resp B/P Pulse Ox O2 Delivery O2 Flow Rate FiO2 06/08/17 21:30 98.6 68 19 115/56 94 Room Air Intake and Output 06/08/17 06/08/17 06/09/17 15:00 23:00 07:00 Intake Total 1040 ml 360 ml Output Total 550 ml 460 ml 200 ml Balance -550 ml 580 ml 160 ml Exam General: WN/WD/NAD, AOx 3 HEENT: Unicetric/atraumatic/EOMI (follows commands) NECK: JVD elevated, no thyromegaly Lymph: no lymphadenopathy HEART: regular with no S3, II/ systolic murmur at apex LUNGS: Coarse sounds ABD: soft, NT, ND, +BS : Intact Neuro: non focal SKIN: chronic changes EXT: trace edema Medications Medications Current Medications Amiodarone HCl (Cordarone) 200 mg BID PO Last administered on 06/08/17t 20:41; Admin Dose 200 MG; Start 05/31/17 at 14:43 Ferrous Sulfate (Ferrous Sulfate (Ec)) 325 mg DAILY PO Last administered on 09:01; Admin Dose 325 MG; Start 05/31/17 at 14:43 Mexiletine HCl (Mexitil) 150 mg DAILY PO Last administered on 06/09/17 09:01; Admin Dose 150 MG; Start 05/31/17 at 14:43 Calcium/Vitamin D (Oyster Shell/ Vit-D (250/125)) 1 tab DAILY PO Last administered on 06/09/17 09:01; Admin Dose 1 TAB; Start 05/31/17 at 14:43 Atorvastatin Calcium (Lipitor) 10 mg DAILY@21 PO Last administered on 20:41; Admin Dose 10 MG; Start 05/31/17 at 14:43 Beta Carotene (Ocuvite) 1 tab DAILY PO Last administered on 06/09/17 09:01; Admin Dose 1 TAB; Start 05/31/17 at 14:43 Acetaminophen (Tylenol Tab) 650 mg Q6H PRN PO PAIN LEVEL 1-3 OR FEVER; Start at 14:43 Salmeterol Xinafoate/ Fluticasone (Advair 250/50 Diskus) 1 inh BID INH Last administered on 06/09/17 09:00; Admin Dose 1 INH; Start 05/31/17 at 14:43 Cyanocobalamin (Vitamin B12) 500 mcg DAILY PO Last administered on 06/09/17 09 :01; Admin Dose 500 MCG; Start 05/31/17 at 14:43 Lisinopril (Zestril) 2.5 mg DAILY PO Last administered on 06/06/17 08:58; Admin Dose 2.5 MG; Start 05/31/17 at 14:43 Acetaminophen/ Hydrocodone Bitart ([place] (5/325)) 1 tab Q4H PRN PO PAIN LEVEL 1 -5 Last administered on 06/06/17 06:48; Admin Dose 1 TAB; Start 06/01/17 at 13: 00 Acetaminophen/ Hydrocodone Bitart ([place] (5/325)) 2 tab Q4H PRN PO PAIN LEVEL 6 -10 Last administered on 06/05/17 08:32; Admin Dose 2 TAB; Start 06/01/17 at 11: 30 Docusate Sodium (Colace) 100 mg BID PO Last administered on 06/09/17 09:01; Admin Dose 100 MG; Start 06/01/17 at 21:00 Senna (Senokot) 1 tab DAILY PO Last administered on 06/09/17 09:01; Admin Dose 1 TAB; Start 06/01/17 at 21:00 Bisacodyl (Dulcolax Supp) 10 mg DAILY PRN [place] CONSTIPATION; Start 06/01/17 at 11: 30 Magnesium Hydroxide (Milk Of Mag) 30 ml DAILY PRN PO CONSTIPATION; Start at 11:30 Lactulose (Enulose) 20 gm DAILY PRN PO CONSTIPATION Last administered on 08:40; Admin Dose 20 GM; Start 06/01/17 at 11:30 Baclofen (Lioresal) 10 mg Q12H PRN PO MUSCLE SPASMS Last administered on 08:40; Admin Dose 10 MG; Start 06/01/17 at 13:00 Apixaban (Eliquis) 5 mg BID PO Last administered on 06/09/17 09:01; Admin Dose 5 MG; Start 06/02/17 at 14:30 Levofloxacin (Levaquin) 500 mg DAILY@06 PO Last administered on 06/09/17 06:28 ; Admin Dose 500 MG; Start 06/03/17 at 11:30; Stop 06/11/17 at 11:29 Ondansetron HCl (Zofran Inj) 4 mg Q4H PRN IV NAUSEA AND/OR VOMITING Last administered on 06/04/17 11:24; Admin Dose 4 MG; Start 06/04/17 at 11:30 CELSO CABALLERO MD Jun 09, 2017 13:12
[2017-06-09 14:00] VITALS: BP 104/57; RESP 18
--- NOTE | 2017-06-09 19:24 | CONS ---
Date/Time of Note Date/Time of Note DATE: 06/09/17 TIME: 19:22 Consult Date/Type/Reason Admit Date/Time May 31, 2017 at 12:40 Initial Consult Date 06/07/17 Type of Consultation: IM Ordering Provider: AILYN URRUTIA MD, [facility] Subjective Undergoing rehab. No events. Objective Vital Signs Date Time Temp Pulse Resp B/P Pulse Ox O2 Delivery O2 Flow Rate FiO2 06/09/17 14:00 98.2 79 18 104/57 94 06/08/17 21:30 Room Air Intake and Output 06/08/17 06/08/17 06/09/17 15:00 23:00 07:00 Intake Total 1040 ml 360 ml Output Total 550 ml 460 ml 200 ml Balance -550 ml 580 ml 160 ml Exam HEENT: Neck supple; no JVD; no LAD CVS: irreg irreg, S1 and S2 CHEST: Clear ABD: Soft, NT, + BS EXT: No c/c/e Results/Medications Medications Current Medications Amiodarone HCl (Cordarone) 200 mg BID PO Last administered on 06/08/17 20:41; Admin Dose 200 MG; Start 05/31/17 at 14:43 Ferrous Sulfate (Ferrous Sulfate (Ec)) 325 mg DAILY PO Last administered on 09:01; Admin Dose 325 MG; Start 05/31/17 at 14:43 Mexiletine HCl (Mexitil) 150 mg DAILY PO Last administered on 06/09/17 09:01; Admin Dose 150 MG; Start 05/31/17 at 14:43 Calcium/Vitamin D (Oyster Shell/ Vit-D (250/125)) 1 tab DAILY PO Last administered on 06/09/17 09:01; Admin Dose 1 TAB; Start 05/31/17 at 14:43 Atorvastatin Calcium (Lipitor) 10 mg DAILY@21 PO Last administered on 20:41; Admin Dose 10 MG; Start 05/31/17 at 14:43 Beta Carotene (Ocuvite) 1 tab DAILY PO Last administered on 06/09/17 09:01; Admin Dose 1 TAB; Start 05/31/17 at 14:43 Acetaminophen (Tylenol Tab) 650 mg Q6H PRN PO PAIN LEVEL 1-3 OR FEVER; Start at 14:43 Salmeterol Xinafoate/ Fluticasone (Advair 250/50 Diskus) 1 inh BID INH Last administered on 06/09/17 09:00; Admin Dose 1 INH; Start 05/31/17 at 14:43 Cyanocobalamin (Vitamin B12) 500 mcg DAILY PO Last administered on 06/09/17 09 :01; Admin Dose 500 MCG; Start 05/31/17 at 14:43 Lisinopril (Zestril) 2.5 mg DAILY PO Last administered on 06/06/17 08:58; Admin Dose 2.5 MG; Start 05/31/17 at 14:43 Acetaminophen/ Hydrocodone Bitart ([place] (5/325)) 1 tab Q4H PRN PO PAIN LEVEL 1 -5 Last administered on 06/06/17 06:48; Admin Dose 1 TAB; Start 06/01/17 at 13: 00 Acetaminophen/ Hydrocodone Bitart ([place] (5/325)) 2 tab Q4H PRN PO PAIN LEVEL 6 -10 Last administered on 06/05/17 08:32; Admin Dose 2 TAB; Start 06/01/17 at 11: 30 Docusate Sodium (Colace) 100 mg BID PO Last administered on 06/09/17 09:01; Admin Dose 100 MG; Start 06/01/17 at 21:00 Senna (Senokot) 1 tab DAILY PO Last administered on 06/09/17 09:01; Admin Dose 1 TAB; Start 06/01/17 at 21:00 Bisacodyl (Dulcolax Supp) 10 mg DAILY PRN [place] CONSTIPATION; Start 06/01/17 at 11: 30 Magnesium Hydroxide (Milk Of Mag) 30 ml DAILY PRN PO CONSTIPATION; Start at 11:30 Lactulose (Enulose) 20 gm DAILY PRN PO CONSTIPATION Last administered on 08:40; Admin Dose 20 GM; Start 06/01/17 at 11:30 Baclofen (Lioresal) 10 mg Q12H PRN PO MUSCLE SPASMS Last administered on 08:40; Admin Dose 10 MG; Start 06/01/17 at 13:00 Apixaban (Eliquis) 5 mg BID PO Last administered on 06/09/17 09:01; Admin Dose 5 MG; Start 06/02/17 at 14:30 Levofloxacin (Levaquin) 500 mg DAILY@06 PO Last administered on 06/09/17 06:28 ; Admin Dose 500 MG; Start 06/03/17 at 11:30; Stop 06/11/17 at 11:29 Ondansetron HCl (Zofran Inj) 4 mg Q4H PRN IV NAUSEA AND/OR VOMITING Last administered on 06/04/17 11:24; Admin Dose 4 MG; Start 06/04/17 at 11:30 Assessment/Plan Additional Assessment/Plan IMP 1. Recent mechanical fall requiring open reduction internal fixation of right hip fracture. 2. Chronic atrial fibrillation. 3. 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 4. Euthyroid Sick --appreciate Endo input PLAN: 1. Continue PT/OPT 2. Anticoagulation held secondary to fall risk 3. DVT and GI prophylaxis 4. Continue to monitor BP 5. Am labs CELY RAMSEY MD Jun 09, 2017 19:24
[2017-06-09 20:00] VITALS: BP 107/63; RESP 18
[2017-06-09] MEDS: ATORVASTATIN 10 MG TAB PO SCH (21:05)
[2017-06-09 21:08] VITALS: BP 118/61; PULSE 70
[2017-06-10 02:00] VITALS: BP 112/67; RESP 18
[2017-06-10] MEDS: LEVOFLOXACIN 500 MG TAB PO SCH (05:47)
[2017-06-10 06:47] LABS: ABNORMAL IP MESSAGE 1; BASOPHILS % 0.2 % (0.0-2.0); EOSINOPHILS # 0.1 10^3/ul (0.0-0.5); EOSINOPHILS % 1.5 % (0.0-7.0); HEMATOCRIT 33.1 % (42.0-52.0); HEMOGLOBIN 10.7 g/dl (14.0-18.0); LYMPHOCYTES # 0.6 10^3/ul (0.8-2.9); LYMPHOCYTES % 8.9 % (15.0-51.0); MEAN CORPUSCULAR HEMOGLOBIN 32.7 pg (29.0-33.0); MEAN CORPUSCULAR HGB CONC 32.3 g/dl (32.0-37.0); MEAN CORPUSCULAR VOLUME 101.2 fl (82.0-101.0); MEAN PLATELET VOLUME 8.8 fl (7.4-10.4); MONOCYTE # 0.5 10^3/ul (0.3-0.9); MONOCYTES % 6.9 % (0.0-11.0); NEUTROPHIL # 5.5 10^3/ul (1.6-7.5); PLATELET COUNT 310 10^3/UL (140-415); POSITIVE DIFF @See below; RED BLOOD COUNT 3.27 10^6/ul (4.70-6.10); RED CELL DISTRIBUTION WIDTH 15.8 % (11.5-14.5); WHITE BLOOD COUNT 6.6 10^3/ul (4.8-10.8)
[2017-06-10 07:25] LABS: CALCIUM 8.2 mg/dl (8.4-10.2); CREATININE 0.87 mg/dl (0.61-1.24)
[2017-06-10 07:30] VITALS: BP 131/73; RESP 20
[2017-06-10] MEDS: BALSAM PERU/CASTOR OIL 60 GM TUBE TOP SCH ×2 (09:00→20:44)
[2017-06-10] MEDS: CYANOCOBALAMIN 500 MCG TAB PO SCH (09:00)
[2017-06-10] MEDS: BETA CAROTENE/VIT C/E/MIN TAB PO SCH (09:10)
[2017-06-10] MEDS: APIXABAN 5 MG TABLET PO SCH ×2 (09:11→20:41)
[2017-06-10] MEDS: CALCIUM/VITAMIN D (250/125) TAB PO SCH (09:11)
--- NOTE | 2017-06-10 09:19 | CONS ---
Date/Time of Note Date/Time of Note DATE: 06/10/17 TIME: 09:18 Assessment/Plan Assessment/Plan Additional Assessment/Plan 1. Preoperative evaluation NO cp. EF 40%. NO contraindicated valve lesions. s/ p LE ORIF and transferred to rehab - REHAB in progress, doing well. Con't to improve. 2. Status post fall, mechanical by description- no cardiac instability noted. 3. History of automatic implantable cardioverter defibrillator on anti- arrythmics - NO NEW arrhythmia noted. GOOD FXn. WILL HAVE OUTPT f/up. 4. Presumed cardiomyopathy - stable fluid satus now. 5. History of atrial fibrillation/ventricular arrythmias-primary EP Dr Edilberto - rate controlled - no cp now. 6. Hip fracture- con't to recover. 7. Dyslipidemia. 8. Cardiomyopathy-EF 40% 9. Hyperthyroid by TSH/FT4 this admit Consultation Date/Type/Reason Admit Date/Time May 31, 2017 at 12:40 Type of Consultation: IM Referring Provider: A[facility]N [facility]RRUTIA MD, [facility] 24 HR Interval Summary Free Text/Dictation NO acute events - no arrhythmai - compliant with rehab. ROS: No fever, no chills, no nausea, no vomiting, no diarrhea/constipation No recent weight changes No chest pain, no PND, no orthopnea No dizziness, blurred vision No thirst, no heat or cold intolerance Exam/Review of Systems Vital Signs Vitals Vital Signs Date Time Temp Pulse Resp B/P Pulse Ox O2 Delivery O2 Flow Rate FiO2 06/10/17 02:00 97.8 70 18 112/67 96 06/08/17 21:30 Room Air Intake and Output 06/09/17 06/09/17 06/10/17 15:00 23:00 07:00 Intake Total 1120 ml 580 ml Output Total 420 ml 500 ml Balance 700 ml 80 ml Exam General: WN/WD/NAD, AOx 3 HEENT: Unicetric/atraumatic/EOMI (follows commands) NECK: JVD elevated, no thyromegaly Lymph: no lymphadenopathy HEART: regular with no S3, II/ systolic murmur at apex LUNGS: Coarse sounds ABD: soft, NT, ND, +BS : Intact Neuro: non focal SKIN: chronic changes EXT: trace edema Results Result Diagram: 06/10/17 0611 06/10/17 0611 Results 24 hrs Laboratory Tests Test 06/10/17 06:11 White Blood Count 6.6 Red Blood Count 3.27 L Hemoglobin 10.7 L Hematocrit 33.1 L Mean Corpuscular Volume 101.2 H Mean Corpuscular Hemoglobin 32.7 Mean Corpuscular Hemoglobin Concent 32.3 Red Cell Distribution Width 15.8 H Platelet Count 310 # Mean Platelet Volume 8.8 Neutrophils % 82.0 H Lymphocytes % 8.9 L Monocytes % 6.9 Eosinophils % 1.5 Basophils % 0.2 Nucleated Red Blood Cells % 0.0 Neutrophils # 5.5 Lymphocytes # 0.6 L Monocytes # 0.5 Eosinophils # 0.1 Basophils # 0.0 Nucleated Red Blood Cells # 0.0 Sodium Level 136 Potassium Level 4.0 Chloride Level 106 Carbon Dioxide Level 28 Anion Gap 6 L Blood Urea Nitrogen 22 H Creatinine 0.87 Glucose Level 100 Calcium Level 8.2 L Medications Medications Current Medications Amiodarone HCl (Cordarone) 200 mg BID PO Last administered on 06/09/17 21:08; Admin Dose 200 MG; Start 05/31/17 at 14:43 Ferrous Sulfate (Ferrous Sulfate (Ec)) 325 mg DAILY PO Last administered on 09:01; Admin Dose 325 MG; Start 05/31/17 at 14:43 Mexiletine HCl (Mexitil) 150 mg DAILY PO Last administered on 06/09/17 09:01; Admin Dose 150 MG; Start 05/31/17 at 14:43 Calcium/Vitamin D ([place]yster Shell/ Vit-D (250/125)) 1 tab DAILY PO Last administered on 06/09/17 09:01; Admin Dose 1 TAB; Start 05/31/17 at 14:43 Atorvastatin Calcium (Lipitor) 10 mg DAILY@21 PO Last administered on 21:05; Admin Dose 10 MG; Start 05/31/17 at 14:43 Beta Carotene (Ocuvite) 1 tab DAILY PO Last administered on 06/09/17 09:01; Admin Dose 1 TAB; Start 05/31/17 at 14:43 Acetaminophen (Tylenol Tab) 650 mg Q6H PRN PO PAIN LEVEL 1-3 OR FEVER; Start at 14:43 Salmeterol Xinafoate/ Fluticasone (Advair 250/50 Diskus) 1 inh BID INH Last administered on 06/09/17 21:04; Admin Dose 1 INH; Start 05/31/17 at 14:43 Cyanocobalamin (Vitamin B12) 500 mcg DAILY PO Last administered on 06/09/17 09 :01; Admin Dose 500 MCG; Start 05/31/17 at 14:43 Lisinopril (Zestril) 2.5 mg DAILY PO Last administered on 06/06/17 08:58; Admin Dose 2.5 MG; Start 05/31/17 at 14:43 Acetaminophen/ Hydrocodone Bitart ([place] (5/325)) 1 tab Q4H PRN PO PAIN LEVEL 1 -5 Last administered on 06/06/17 06:48; Admin Dose 1 TAB; Start 06/01/17 at 13: 00 Acetaminophen/ Hydrocodone Bitart ([place] (5/325)) 2 tab Q4H PRN PO PAIN LEVEL 6 -10 Last administered on 06/05/17 08:32; Admin Dose 2 TAB; Start 06/01/17 at 11: 30 Docusate Sodium (Colace) 100 mg BID PO Last administered on 06/09/17 21:05; Admin Dose 100 MG; Start 06/01/17 at 21:00 Senna (Senokot) 1 tab DAILY PO Last administered on 06/09/17 09:01; Admin Dose 1 TAB; Start 06/01/17 at 21:00 Bisacodyl (Dulcolax Supp) 10 mg DAILY PRN [place] CONSTIPATION; Start 06/01/17 at 11: 30 Magnesium Hydroxide (Milk Of Mag) 30 ml DAILY PRN PO CONSTIPATION; Start at 11:30 Lactulose (Enulose) 20 gm DAILY PRN PO CONSTIPATION Last administered on 08:40; Admin Dose 20 GM; Start 06/01/17 at 11:30 Baclofen (Lioresal) 10 mg Q12H PRN PO MUSCLE SPASMS Last administered on 08:40; Admin Dose 10 MG; Start 06/01/17 at 13:00 Apixaban (Eliquis) 5 mg BID PO Last administered on 06/09/17 21:05; Admin Dose 5 MG; Start 06/02/17 at 14:30 Levofloxacin (Levaquin) 500 mg DAILY@06 PO Last administered on 06/10/17 05:47 ; Admin Dose 500 MG; Start 06/03/17 at 11:30; Stop 06/11/17 at 11:29 Ondansetron HCl (Zofran Inj) 4 mg Q4H PRN IV NAUSEA AND/OR VOMITING Last administered on 06/04/17 11:24; Admin Dose 4 MG; Start 06/04/17 at 11:30 CELSO CABALLERO MD Jun 10, 2017 09:19
[2017-06-10] MEDS: DOCUSATE SODIUM 100 MG CAP PO SCH ×2 (09:26→20:34)
[2017-06-10] MEDS: AMIODARONE 200 MG TAB PO SCH ×2 (09:27→20:43)
[2017-06-10] MEDS: FERROUS SULFATE (EC) 325 MG TAB PO SCH (09:28)
[2017-06-10] MEDS: SALMETEROL/FLUTICASONE 250/50 INHA INH SCH ×2 (09:28→20:34)
[2017-06-10] MEDS: LISINOPRIL 5 MG TAB PO SCH (09:30)
[2017-06-10] MEDS: MEXILETINE 150 MG CAP PO SCH (09:30)
[2017-06-10] MEDS: SENNA TAB PO SCH (09:31)
--- NOTE | 2017-06-10 11:52 | PN ---
Date/Time of Note Date/Time of Note DATE: 06/10/17 TIME: 11:35 Assessment/Plan VTE Prophylaxis VTE Prophylaxis Intervention: SCD's Lines/Catheters IV [facility]ter Type [facility]from [facility] [facility] Urinary Cath still in place: No Assessment/Plan Chief Complaint/Hosp Course 1. Hip fracture secondary to mechanical fall. Status post open reduction internal fixation of right hip fracture. -PT/OT 2. Atrial fibrillation. -Continue current management 3. Cardiomyopathy with AICD. -Current medical management. 4. Euthyroid Sick Syndrome. -appreciate Endo input 5. Dyslipidemia. -Continue statin 6. E-coli UTI -On LevaquinX x7 days 7. Essential HTN,now with orthostatic hypotension -BP managed per cards 8. Debility PLAN: Patient with weight, a major concern for ARU physical therapy activities. Rehab physician and plan is to have family conferences and possible discharge planning to an extended care facility versus hospice. Patient is seen in collaboration with . Problems: Subjective 24 Hr Interval Summary Free Text/Dictation Patient with labile blood pressure, affecting physical therapy in-house. He denies chest pain, palpitation or other constitutional symptoms. Exam/Review of Systems Vital Signs Vitals Vital Signs Date Time Temp Pulse Resp B/P Pulse Ox O2 Delivery O2 Flow Rate FiO2 06/10/17 07:30 98.4 70 20 131/73 97 06/08/17 21:30 Room Air Intake and Output 06/09/17 06/09/17 06/10/17 14:59 22:59 06:59 Intake Total 1120 ml 580 ml Output Total 420 ml 500 ml Balance 700 ml 80 ml Exam General: Well developed,adequately built, not in any acute distress . HEENT: Normocephalic, Atraumatic, No laceration or hematoma; Eyes: PEERL, Conjunctiva clear, Anicteric sclera Neck: Supple without any lymphadenopathy, nontender, no JVD, no carotid bruits, trachea midline, no thyromegaly Cardiac: S1, S2 auscultated, regular rhythm and rate, no mumurs or gallop Pulmonary: Normal respiratory effort. Chest clear to auscultation bilaterally, no adventitious breath sounds GI: Abdomen normal to inspection. Soft, non tender, non- distended, no masses, no rebound tenderness or guarding. Bowel sounds active on all four quadrants Genitourinary: Deferred Extremities: Right hip surgical site intact. no cyanosis, clubbing, or edema. Pulses [2+] bilaterally. Full ROM on all four extremities. No focal weakness appreciated. Neurologic: Alert to person, place, time, and situation. Affect appropriate, intact sensation. Skin: Clean,dry, and intact. No ecchymosis, no rashes, or lesions Results Result Diagram: 06/10/17 0611 06/10/17 0611 Results 24 hrs Laboratory Tests Test 06/10/17 06:11 White Blood Count 6.6 Red Blood Count 3.27 L Hemoglobin 10.7 L Hematocrit 33.1 L Mean Corpuscular Volume 101.2 H Mean Corpuscular Hemoglobin 32.7 Mean Corpuscular Hemoglobin Concent 32.3 Red Cell Distribution Width 15.8 H Platelet Count 310 # Mean Platelet Volume 8.8 Neutrophils % 82.0 H Lymphocytes % 8.9 L Monocytes % 6.9 Eosinophils % 1.5 Basophils % 0.2 Nucleated Red Blood Cells % 0.0 Neutrophils # 5.5 Lymphocytes # 0.6 L Monocytes # 0.5 Eosinophils # 0.1 Basophils # 0.0 Nucleated Red Blood Cells # 0.0 Sodium Level 136 Potassium Level 4.0 Chloride Level 106 Carbon Dioxide Level 28 Anion Gap 6 L Blood Urea Nitrogen 22 H Creatinine 0.87 Glucose Level 100 Calcium Level 8.2 L Medications Medications Current Medications Amiodarone HCl (Cordarone) 200 mg BID PO Last administered on 06/10/17 09:27; Admin Dose 200 MG; Start 05/31/17 at 14:43 Ferrous Sulfate (Ferrous Sulfate (Ec)) 325 mg DAILY PO Last administered on 09:28; Admin Dose 325 MG; Start 05/31/17 at 14:43 Mexiletine HCl (Mexitil) 150 mg DAILY PO Last administered on 06/10/17 09:30; Admin Dose 150 MG; Start 05/31/17 at 14:43 Calcium/Vitamin D (Oyster Shell/ Vit-D (250/125)) 1 tab DAILY PO Last administered on 06/10/17 09:11; Admin Dose 1 TAB; Start 05/31/17 at 14:43 Atorvastatin Calcium (Lipitor) 10 mg DAILY@21 PO Last administered on 21:05; Admin Dose 10 MG; Start 05/31/17 at 14:43 Beta Carotene (Ocuvite) 1 tab DAILY PO Last administered on 06/10/17 09:10; Admin Dose 1 TAB; Start 05/31/17 at 14:43 Acetaminophen (Tylenol Tab) 650 mg Q6H PRN PO PAIN LEVEL 1-3 OR FEVER; Start at 14:43 Salmeterol Xinafoate/ Fluticasone (Advair 250/50 Diskus) 1 inh BID INH Last administered on 06/10/17 09:28; Admin Dose 1 INH; Start 05/31/17 at 14:43 Cyanocobalamin (Vitamin B12) 500 mcg DAILY PO Last administered on 06/09/17 09 :01; Admin Dose 500 MCG; Start 05/31/17 at 14:43 Lisinopril (Zestril) 2.5 mg DAILY PO Last administered on 06/10/17 09:30; Admin Dose 2.5 MG; Start 05/31/17 at 14:43 Acetaminophen/ Hydrocodone Bitart ([place] (5/325)) 1 tab Q4H PRN PO PAIN LEVEL 1 -5 Last administered on 06/06/17 06:48; Admin Dose 1 TAB; Start 06/01/17 at 13: 00 Acetaminophen/ Hydrocodone Bitart ([place] (5/325)) 2 tab Q4H PRN PO PAIN LEVEL 6 -10 Last administered on 06/05/17 08:32; Admin Dose 2 TAB; Start 06/01/17 at 11: 30 Docusate Sodium (Colace) 100 mg BID PO Last administered on 06/10/17 09:26; Admin Dose 100 MG; Start 06/01/17 at 21:00 Senna (Senokot) 1 tab DAILY PO Last administered on 06/10/17 09:31; Admin Dose 1 TAB; Start 06/01/17 at 21:00 Bisacodyl (Dulcolax Supp) 10 mg DAILY PRN [place] CONSTIPATION; Start 06/01/17 at 11: 30 Magnesium Hydroxide (Milk Of Mag) 30 ml DAILY PRN PO CONSTIPATION; Start at 11:30 Lactulose (Enulose) 20 gm DAILY PRN PO CONSTIPATION Last administered on 08:40; Admin Dose 20 GM; Start 06/01/17 at 11:30 Baclofen (Lioresal) 10 mg Q12H PRN PO MUSCLE SPASMS Last administered on 08:40; Admin Dose 10 MG; Start 06/01/17 at 13:00 Apixaban (Eliquis) 5 mg BID PO Last administered on 06/10/17 09:11; Admin Dose 5 MG; Start 06/02/17 at 14:30 Levofloxacin (Levaquin) 500 mg DAILY@06 PO Last administered on 06/10/17 05:47 ; Admin Dose 500 MG; Start 06/03/17 at 11:30; Stop 06/11/17 at 11:29 Ondansetron HCl (Zofran Inj) 4 mg Q4H PRN IV NAUSEA AND/OR VOMITING Last administered on 06/04/17 11:24; Admin Dose 4 MG; Start 06/04/17 at 11:30 NELLY LEVI NP Jun 10, 2017 11:47
--- NOTE | 2017-06-10 12:34 | CONS ---
Date/Time of Note Date/Time of Note DATE: 06/10/17 TIME: 12:34 Consult Date/Type/Reason Admit Date/Time May 31, 2017 at 12:40 Type of Consultation: IM Ordering Provider: AILYN URRUTIA MD, [facility] Objective Vital Signs Date Time Temp Pulse Resp B/P Pulse Ox O2 Delivery O2 Flow Rate FiO2 06/10/17 07:30 98.4 70 20 131/73 97 06/08/17 21:30 Room Air Intake and Output 06/09/17 06/09/17 06/10/17 15:00 23:00 07:00 Intake Total 1120 ml 580 ml Output Total 420 ml 500 ml Balance 700 ml 80 ml INTERDISCIPLINARY TEAM CONFERENCE BOWEL- Cont BLADDER-Cont SKIN- improved OT- DRESSING-max BATHING-max TOILETING-max PT- BED MOBILITY-max TRANSFERS-max W.C. MOBILITY-mod A/P- Interdisciplinary team conference held today. Please see interdisciplinary sheet. Working toward d.c. on 06/14 with post discharge follow up of physical therapy, occupational therapy, RN. Family conference held today, current functional status reviewed in addition to various disposition options. Family reviewing options, but seem to prefer home with hospice support. Results/Medications Result Diagram: 06/10/17 0611 06/10/17 0611 Results 24 hrs Laboratory Tests Test 06/10/17 06:11 White Blood Count 6.6 Red Blood Count 3.27 L Hemoglobin 10.7 L Hematocrit 33.1 L Mean Corpuscular Volume 101.2 H Mean Corpuscular Hemoglobin 32.7 Mean Corpuscular Hemoglobin Concent 32.3 Red Cell Distribution Width 15.8 H Platelet Count 310 # Mean Platelet Volume 8.8 Neutrophils % 82.0 H Lymphocytes % 8.9 L Monocytes % 6.9 Eosinophils % 1.5 Basophils % 0.2 Nucleated Red Blood Cells % 0.0 Neutrophils # 5.5 Lymphocytes # 0.6 L Monocytes # 0.5 Eosinophils # 0.1 Basophils # 0.0 Nucleated Red Blood Cells # 0.0 Sodium Level 136 Potassium Level 4.0 Chloride Level 106 Carbon Dioxide Level 28 Anion Gap 6 L Blood Urea Nitrogen 22 H Creatinine 0.87 Glucose Level 100 Calcium Level 8.2 L Medications Current Medications Amiodarone HCl (Cordarone) 200 mg BID PO Last administered on 06/10/17t 09:27; Admin Dose 200 MG; Start 05/31/17 at 14:43 Ferrous Sulfate (Ferrous Sulfate (Ec)) 325 mg DAILY PO Last administered on 09:28; Admin Dose 325 MG; Start 05/31/17 at 14:43 Mexiletine HCl (Mexitil) 150 mg DAILY PO Last administered on 06/10/17 09:30; Admin Dose 150 MG; Start 05/31/17 at 14:43 Calcium/Vitamin D (Oyster Shell/ Vit-D (250/125)) 1 tab DAILY PO Last administered on 06/10/17 09:11; Admin Dose 1 TAB; Start 05/31/17 at 14:43 Atorvastatin Calcium (Lipitor) 10 mg DAILY@21 PO Last administered on 21:05; Admin Dose 10 MG; Start 05/31/17 at 14:43 Beta Carotene (Ocuvite) 1 tab DAILY PO Last administered on 06/10/17 09:10; Admin Dose 1 TAB; Start 05/31/17 at 14:43 Acetaminophen (Tylenol Tab) 650 mg Q6H PRN PO PAIN LEVEL 1-3 OR FEVER; Start at 14:43 Salmeterol Xinafoate/ Fluticasone (Advair 250/50 Diskus) 1 inh BID INH Last administered on 06/10/17 09:28; Admin Dose 1 INH; Start 05/31/17 at 14:43 Cyanocobalamin (Vitamin B12) 500 mcg DAILY PO Last administered on 06/09/17 09 :01; Admin Dose 500 MCG; Start 05/31/17 at 14:43 Lisinopril (Zestril) 2.5 mg DAILY PO Last administered on 06/10/17 09:30; Admin Dose 2.5 MG; Start 05/31/17 at 14:43 Acetaminophen/ Hydrocodone Bitart ([place] (5/325)) 1 tab Q4H PRN PO PAIN LEVEL 1 -5 Last administered on 06/06/17 06:48; Admin Dose 1 TAB; Start 06/01/17 at 13: 00 Acetaminophen/ Hydrocodone Bitart ([place] (5/325)) 2 tab Q4H PRN PO PAIN LEVEL 6 -10 Last administered on 06/05/17 08:32; Admin Dose 2 TAB; Start 06/01/17 at 11: 30 Docusate Sodium (Colace) 100 mg BID PO Last administered on 06/10/17 09:26; Admin Dose 100 MG; Start 06/01/17 at 21:00 Senna (Senokot) 1 tab DAILY PO Last administered on 06/10/17 09:31; Admin Dose 1 TAB; Start 06/01/17 at 21:00 Bisacodyl (Dulcolax Supp) 10 mg DAILY PRN [place] CONSTIPATION; Start 06/01/17 at 11: 30 Magnesium Hydroxide (Milk Of Mag) 30 ml DAILY PRN PO CONSTIPATION; Start at 11:30 Lactulose (Enulose) 20 gm DAILY PRN PO CONSTIPATION Last administered on 08:40; Admin Dose 20 GM; Start 06/01/17 at 11:30 Baclofen (Lioresal) 10 mg Q12H PRN PO MUSCLE SPASMS Last administered on 08:40; Admin Dose 10 MG; Start 06/01/17 at 13:00 Apixaban (Eliquis) 5 mg BID PO Last administered on 06/10/17 09:11; Admin Dose 5 MG; Start 06/02/17 at 14:30 Levofloxacin (Levaquin) 500 mg DAILY@06 PO Last administered on 06/10/17 05:47 ; Admin Dose 500 MG; Start 06/03/17 at 11:30; Stop 06/11/17 at 11:29 Ondansetron HCl (Zofran Inj) 4 mg Q4H PRN IV NAUSEA AND/OR VOMITING Last administered on 06/04/17 11:24; Admin Dose 4 MG; Start 06/04/17 at 11:30 JAYY FARIAS MD Jun 10, 2017 12:34
[2017-06-10] MEDS: HYDROCODONE/APAP (5/325) TAB PO PRN (17:39)
[2017-06-10 20:00] VITALS: BP 137/63; RESP 18
[2017-06-10] MEDS: ATORVASTATIN 10 MG TAB PO SCH (20:43)
[2017-06-11 02:00] VITALS: BP 127/72; RESP 18
[2017-06-11] MEDS: LEVOFLOXACIN 500 MG TAB PO SCH (06:34)
[2017-06-11 08:59] VITALS: BP 112/69; RESP 18
[2017-06-11] MEDS: CYANOCOBALAMIN 500 MCG TAB PO SCH (09:00)
--- NOTE | 2017-06-11 09:03 | CONS ---
Date/Time of Note Date/Time of Note DATE: 06/11/17 TIME: 09:02 Assessment/Plan Assessment/Plan Additional Assessment/Plan 1. Preoperative evaluation NO cp. EF 40%. NO contraindicated valve lesions. s/ p LE ORIF and transferred to rehab - REHAB in progress, doing well. Con't to improve. BETTER OVERALL. 2. Status post fall, mechanical by description- no cardiac instability noted. 3. History of automatic implantable cardioverter defibrillator on anti- arrythmics - NO NEW arrhythmia noted. GOOD FXn. WILL HAVE OUTPT f/up. 4. Presumed cardiomyopathy - stable fluid satus now. 5. History of atrial fibrillation/ventricular arrythmias-primary EP Dr [place] - rate controlled - no cp now. STABLE. 6. Hip fracture- con't to recover. 7. Dyslipidemia. 8. Cardiomyopathy-EF 40% - ICD in place,. 9. Hyperthyroid by TSH/FT4 this admit Consultation Date/Type/Reason Admit Date/Time May 31, 2017 at 12:40 Type of Consultation: IM Referring Provider: AILYN URRUTIA MD, [facility] 24 HR Interval Summary Free Text/Dictation NO acute events - pt compliant with rehab - med Rx in place. ROS: No fever, no chills, no nausea, no vomiting, no diarrhea/constipation No recent weight changes No chest pain, no PND, no orthopnea No dizziness, blurred vision No thirst, no heat or cold intolerance Exam/Review of Systems Vital Signs Vitals Vital Signs Date Time Temp Pulse Resp B/P Pulse Ox O2 Delivery O2 Flow Rate FiO2 06/11/17 08:59 98.5 70 18 112/69 94 06/08/17 21:30 Room Air Intake and Output 06/10/17 06/10/17 06/11/17 15:00 23:00 07:00 Intake Total 240 ml Output Total 450 ml Balance -210 ml Exam General: WN/WD/NAD, AOx 3 HEENT: Unicetric/atraumatic/EOMI (follows commands) NECK: JVD elevated, no thyromegaly Lymph: no lymphadenopathy HEART: regular with no S3, II/ systolic murmur at apex LUNGS: Coarse sounds ABD: soft, NT, ND, +BS : Intact Neuro: non focal SKIN: chronic changes EXT: trace edema Results Result Diagram: 06/10/17 0611 06/10/17 0611 Medications Medications Current Medications Amiodarone HCl (Cordarone) 200 mg BID PO Last administered on 06/10/17 20:43; Admin Dose 200 MG; Start 05/31/17 at 14:43 Ferrous Sulfate (Ferrous Sulfate (Ec)) 325 mg DAILY PO Last administered on 09:28; Admin Dose 325 MG; Start 05/31/17 at 14:43 Mexiletine HCl (Mexitil) 150 mg DAILY PO Last administered on 06/10/17 09:30; Admin Dose 150 MG; Start 05/31/17 at 14:43 Calcium/Vitamin D (Oyster Shell/ Vit-D (250/125)) 1 tab DAILY PO Last administered on 06/10/17 09:11; Admin Dose 1 TAB; Start 05/31/17 at 14:43 Atorvastatin Calcium (Lipitor) 10 mg DAILY@21 PO Last administered on 20:43; Admin Dose 10 MG; Start 05/31/17 at 14:43 Beta Carotene (Ocuvite) 1 tab DAILY PO Last administered on 06/10/17 09:10; Admin Dose 1 TAB; Start 05/31/17 at 14:43 Acetaminophen (Tylenol Tab) 650 mg Q6H PRN PO PAIN LEVEL 1-3 OR FEVER; Start at 14:43 Salmeterol Xinafoate/ Fluticasone (Advair 250/50 Diskus) 1 inh BID INH Last administered on 06/10/17 20:34; Admin Dose 1 INH; Start 05/31/17 at 14:43 Cyanocobalamin (Vitamin B12) 500 mcg DAILY PO Last administered on 06/09/17 09 :01; Admin Dose 500 MCG; Start 05/31/17 at 14:43 Lisinopril (Zestril) 2.5 mg DAILY PO Last administered on 06/10/17 09:30; Admin Dose 2.5 MG; Start 05/31/17 at 14:43 Acetaminophen/ Hydrocodone Bitart ([place] (5/325)) 1 tab Q4H PRN PO PAIN LEVEL 1 -5 Last administered on 06/06/17 06:48; Admin Dose 1 TAB; Start 06/01/17 at 13: 00 Acetaminophen/ Hydrocodone Bitart ([place] (5/325)) 2 tab Q4H PRN PO PAIN LEVEL 6 -10 Last administered on 06/10/17 17:39; Admin Dose 2 TAB; Start 06/01/17 at 11: 30 Docusate Sodium (Colace) 100 mg BID PO Last administered on 06/10/17 20:34; Admin Dose 100 MG; Start 06/01/17 at 21:00 Senna (Senokot) 1 tab DAILY PO Last administered on 06/10/17 09:31; Admin Dose 1 TAB; Start 06/01/17 at 21:00 Bisacodyl (Dulcolax Supp) 10 mg DAILY PRN [place] CONSTIPATION; Start 06/01/17 at 11: 30 Magnesium Hydroxide (Milk Of Mag) 30 ml DAILY PRN PO CONSTIPATION; Start at 11:30 Lactulose (Enulose) 20 gm DAILY PRN PO CONSTIPATION Last administered on 08:40; Admin Dose 20 GM; Start 06/01/17 at 11:30 Baclofen (Lioresal) 10 mg Q12H PRN PO MUSCLE SPASMS Last administered on 08:40; Admin Dose 10 MG; Start 06/01/17 at 13:00 Apixaban (Eliquis) 5 mg BID PO Last administered on 06/10/17 20:41; Admin Dose 5 MG; Start 06/02/17 at 14:30 Levofloxacin (Levaquin) 500 mg DAILY@06 PO Last administered on 06/11/17 06:34 ; Admin Dose 500 MG; Start 06/03/17 at 11:30; Stop 06/11/17 at 11:29 Ondansetron HCl (Zofran Inj) 4 mg Q4H PRN IV NAUSEA AND/OR VOMITING Last administered on 06/04/17 11:24; Admin Dose 4 MG; Start 06/04/17 at 11:30 CELSO CABALLERO MD Jun 11, 2017 09:03
[2017-06-11] MEDS: SALMETEROL/FLUTICASONE 250/50 INHA INH SCH ×2 (10:48→21:07)
[2017-06-11] MEDS: DOCUSATE SODIUM 100 MG CAP PO SCH ×2 (10:49→21:07)
[2017-06-11] MEDS: MEXILETINE 150 MG CAP PO SCH (10:51)
[2017-06-11] MEDS: APIXABAN 5 MG TABLET PO SCH ×2 (10:51→21:07)
[2017-06-11] MEDS: FERROUS SULFATE (EC) 325 MG TAB PO SCH (10:51)
[2017-06-11] MEDS: BETA CAROTENE/VIT C/E/MIN TAB PO SCH (10:51)
[2017-06-11] MEDS: AMIODARONE 200 MG TAB PO SCH ×2 (10:51→21:07)
[2017-06-11] MEDS: SENNA TAB PO SCH (10:52)
[2017-06-11] MEDS: LISINOPRIL 5 MG TAB PO SCH (10:52)
[2017-06-11] MEDS: CALCIUM/VITAMIN D (250/125) TAB PO SCH (10:52)
[2017-06-11] MEDS: BALSAM PERU/CASTOR OIL 60 GM TUBE TOP SCH ×2 (10:57→21:09)
--- NOTE | 2017-06-11 11:59 | CONS ---
Date/Time of Note Date/Time of Note DATE: 06/11/17 TIME: 11:59 Consult Date/Type/Reason Admit Date/Time May 31, 2017 at 12:40 Type of Consultation: IM Ordering Provider: A[facility]N [facility]RRUTIA MD, [facility] Subjective Patient and report that they would like to work towards home with hospice. Objective max assist for transfer Vital Signs Date Time Temp Pulse Resp B/P Pulse Ox O2 Delivery O2 Flow Rate FiO2 06/11/17 08:59 98.5 70 18 112/69 94 06/08/17 21:30 Room Air Intake and Output 06/10/17 06/10/17 06/11/17 15:00 23:00 07:00 Intake Total 240 ml Output Total 450 ml Balance -210 ml Results/Medications Result Diagram: 06/10/17 0611 06/10/17 0611 Medications Current Medications Amiodarone HCl (Cordarone) 200 mg BID PO Last administered on 06/11/17 10:51; Admin Dose 200 MG; Start 05/31/17 at 14:43 Ferrous Sulfate (Ferrous Sulfate (Ec)) 325 mg DAILY PO Last administered on 10:51; Admin Dose 325 MG; Start 05/31/17 at 14:43 Mexiletine HCl (Mexitil) 150 mg DAILY PO Last administered on 06/11/17 10:51; Admin Dose 150 MG; Start 05/31/17 at 14:43 Calcium/Vitamin D (Oyster Shell/ Vit-D (250/125)) 1 tab DAILY PO Last administered on 06/11/17 10:52; Admin Dose 1 TAB; Start 05/31/17 at 14:43 Atorvastatin Calcium (Lipitor) 10 mg DAILY@21 PO Last administered on 20:43; Admin Dose 10 MG; Start 05/31/17 at 14:43 Beta Carotene (Ocuvite) 1 tab DAILY PO Last administered on 06/11/17 10:51; Admin Dose 1 TAB; Start 05/31/17 at 14:43 Acetaminophen (Tylenol Tab) 650 mg Q6H PRN PO PAIN LEVEL 1-3 OR FEVER; Start at 14:43 Salmeterol Xinafoate/ Fluticasone (Advair 250/50 Diskus) 1 inh BID INH Last administered on 06/11/17 10:48; Admin Dose 1 INH; Start 05/31/17 at 14:43 Cyanocobalamin (Vitamin B12) 500 mcg DAILY PO Last administered on 06/11/17 09 :00; Admin Dose 500 MCG; Start 05/31/17 at 14:43 Lisinopril (Zestril) 2.5 mg DAILY PO Last administered on 06/11/17 10:52; Admin Dose 2.5 MG; Start 05/31/17 at 14:43 Acetaminophen/ Hydrocodone Bitart ([place] (5/325)) 1 tab Q4H PRN PO PAIN LEVEL 1 -5 Last administered on 06/06/17 06:48; Admin Dose 1 TAB; Start 06/01/17 at 13: 00 Acetaminophen/ Hydrocodone Bitart ([place] (5/325)) 2 tab Q4H PRN PO PAIN LEVEL 6 -10 Last administered on 06/10/17 17:39; Admin Dose 2 TAB; Start 06/01/17 at 11: 30 Docusate Sodium (Colace) 100 mg BID PO Last administered on 06/11/17 10:49; Admin Dose 100 MG; Start 06/01/17 at 21:00 Senna (Senokot) 1 tab DAILY PO Last administered on 06/11/17 10:52; Admin Dose 1 TAB; Start 06/01/17 at 21:00 Bisacodyl (Dulcolax Supp) 10 mg DAILY PRN [place] CONSTIPATION; Start 06/01/17 at 11: 30 Magnesium Hydroxide (Milk Of Mag) 30 ml DAILY PRN PO CONSTIPATION; Start at 11:30 Lactulose (Enulose) 20 gm DAILY PRN PO CONSTIPATION Last administered on 08:40; Admin Dose 20 GM; Start 06/01/17 at 11:30 Baclofen (Lioresal) 10 mg Q12H PRN PO MUSCLE SPASMS Last administered on 08:40; Admin Dose 10 MG; Start 06/01/17 at 13:00 Apixaban (Eliquis) 5 mg BID PO Last administered on 06/11/17 10:51; Admin Dose 5 MG; Start 06/02/17 at 14:30 Ondansetron HCl (Zofran Inj) 4 mg Q4H PRN IV NAUSEA AND/OR VOMITING Last administered on 06/04/17t 11:24; Admin Dose 4 MG; Start 06/04/17 at 11:30 Assessment/Plan Additional Assessment/Plan Rehab-Right intertrochanteric and subtrochanteric hip fracture status post ORIF. Continue rehab plan, working toward home at end of week. Orthostatic- monitor closely Acute pain syndrome-continue current medications Atrial fibrillation. COPD. History of cardiomyopathy. History of AICD. Hypertension. Hyperlipidemia. Anemia. Thyroid disease. JAYY FARIAS MD Jun 11, 2017 11:59
--- NOTE | 2017-06-11 13:08 | CONS ---
Date/Time of Note Date/Time of Note DATE: 06/11/17 TIME: 13:06 Assessment/Plan Assessment/Plan Chief Complaint/Hosp Course 11. Hip fracture secondary to mechanical fall. Status post open reduction internal fixation of right hip fracture. -PT/OT 2. Atrial fibrillation. -Continue current management 3. Cardiomyopathy with AICD. -Current medical management. 4. Euthyroid Sick Syndrome. -appreciate Endo input 5. Dyslipidemia. -Continue statin 6. E-coli UTI -On LevaquinX x7 days 7. Essential HTN- Stable ow. -BP managed per cards 8. Debility PLAN: Patient and family opted for Hospice care. DC planning towards the end of this week. Patient is seen in collaboration with Dr. Urrutia. Problems: Consultation Date/Type/Reason Admit Date/Time May 31, 2017 at 12:40 Initial Consult Date 06/07/17 Type of Consultation: IM Referring Provider: AILYN URRUTIA MD, [facility] 24 HR Interval Summary Free Text/Dictation No acute overnight episodes. Exam/Review of Systems Vital Signs Vitals Vital Signs Date Time Temp Pulse Resp B/P Pulse Ox O2 Delivery O2 Flow Rate FiO2 06/11/17 08:59 98.5 70 18 112/69 94 06/08/17 21:30 Room Air Intake and Output 06/10/17 06/10/17 06/11/17 15:00 23:00 07:00 Intake Total 240 ml Output Total 450 ml Balance -210 ml Exam General: Well developed,adequately built, not in any acute distress . HEENT: Normocephalic, Atraumatic, No laceration or hematoma; Eyes: PEERL, Conjunctiva clear, Anicteric sclera Neck: Supple without any lymphadenopathy, nontender, no JVD, no carotid bruits, trachea midline, no thyromegaly Cardiac: S1, S2 auscultated, regular rhythm and rate, no mumurs or gallop Pulmonary: Normal respiratory effort. Chest clear to auscultation bilaterally, no adventitious breath sounds GI: Abdomen normal to inspection. Soft, non tender, non- distended, no masses, no rebound tenderness or guarding. Bowel sounds active on all four quadrants Genitourinary: Deferred Extremities: Right hip surgical site intact. no cyanosis, clubbing, or edema. Pulses [2+] bilaterally. Full ROM on all four extremities. No focal weakness appreciated. Neurologic: Alert to person, place, time, and situation. Affect appropriate, intact sensation. Skin: Clean,dry, and intact. No ecchymosis, no rashes, or lesions Results Result Diagram: 06/10/17 0611 06/10/17 0611 Medications Medications Current Medications Amiodarone HCl (Cordarone) 200 mg BID PO Last administered on 06/11/17 10:51; Admin Dose 200 MG; Start 05/31/17 at 14:43 Ferrous Sulfate (Ferrous Sulfate (Ec)) 325 mg DAILY PO Last administered on 10:51; Admin Dose 325 MG; Start 05/31/17 at 14:43 Mexiletine HCl (Mexitil) 150 mg DAILY PO Last administered on 06/11/17 10:51; Admin Dose 150 MG; Start 05/31/17 at 14:43 Calcium/Vitamin D (Oyster Shell/ Vit-D (250/125)) 1 tab DAILY PO Last administered on 06/11/17 10:52; Admin Dose 1 TAB; Start 05/31/17 at 14:43 Atorvastatin Calcium (Lipitor) 10 mg DAILY@21 PO Last administered on 20:43; Admin Dose 10 MG; Start 05/31/17 at 14:43 Beta Carotene (Ocuvite) 1 tab DAILY PO Last administered on 06/11/17 10:51; Admin Dose 1 TAB; Start 05/31/17 at 14:43 Acetaminophen (Tylenol Tab) 650 mg Q6H PRN PO PAIN LEVEL 1-3 OR FEVER; Start at 14:43 Salmeterol Xinafoate/ Fluticasone (Advair 250/50 Diskus) 1 inh BID INH Last administered on 06/11/17 10:48; Admin Dose 1 INH; Start 05/31/17 at 14:43 Cyanocobalamin (Vitamin B12) 500 mcg DAILY PO Last administered on 06/11/17 09 :00; Admin Dose 500 MCG; Start 05/31/17 at 14:43 Lisinopril (Zestril) 2.5 mg DAILY PO Last administered on 06/11/17 10:52; Admin Dose 2.5 MG; Start 05/31/17 at 14:43 Acetaminophen/ Hydrocodone Bitart ([place] (5/325)) 1 tab Q4H PRN PO PAIN LEVEL 1 -5 Last administered on 06/06/17 06:48; Admin Dose 1 TAB; Start 06/01/17 at 13: 00 Acetaminophen/ Hydrocodone Bitart ([place] (5/325)) 2 tab Q4H PRN PO PAIN LEVEL 6 -10 Last administered on 06/10/17 17:39; Admin Dose 2 TAB; Start 06/01/17 at 11: 30 Docusate Sodium (Colace) 100 mg BID PO Last administered on 06/11/17 10:49; Admin Dose 100 MG; Start 06/01/17 at 21:00 Senna (Senokot) 1 tab DAILY PO Last administered on 06/11/17 10:52; Admin Dose 1 TAB; Start 06/01/17 at 21:00 Bisacodyl (Dulcolax Supp) 10 mg DAILY PRN [place] CONSTIPATION; Start 06/01/17 at 11: 30 Magnesium Hydroxide (Milk Of Mag) 30 ml DAILY PRN PO CONSTIPATION; Start at 11:30 Lactulose (Enulose) 20 gm DAILY PRN PO CONSTIPATION Last administered on 08:40; Admin Dose 20 GM; Start 06/01/17 at 11:30 Baclofen (Lioresal) 10 mg Q12H PRN PO MUSCLE SPASMS Last administered on 08:40; Admin Dose 10 MG; Start 06/01/17 at 13:00 Apixaban (Eliquis) 5 mg BID PO Last administered on 06/11/17 10:51; Admin Dose 5 MG; Start 06/02/17 at 14:30 Ondansetron HCl (Zofran Inj) 4 mg Q4H PRN IV NAUSEA AND/OR VOMITING Last administered on 06/04/17 11:24; Admin Dose 4 MG; Start 06/04/17 at 11:30 NELLY LEVI NP Jun 11, 2017 13:08
[2017-06-11 20:00] VITALS: BP 121/67; RESP 18
[2017-06-11] MEDS: ATORVASTATIN 10 MG TAB PO SCH (21:07)
[2017-06-12] MEDS: HYDROCODONE/APAP (5/325) TAB PO PRN ×3 (01:21→20:24)
[2017-06-12 02:00] VITALS: BP 124/65; RESP 18
[2017-06-12] MEDS: BALSAM PERU/CASTOR OIL 60 GM TUBE TOP SCH ×2 (09:00→20:25)
[2017-06-12] MEDS: CALCIUM/VITAMIN D (250/125) TAB PO SCH (09:00)
[2017-06-12] MEDS: LISINOPRIL 5 MG TAB PO SCH (09:00)
[2017-06-12] MEDS: CYANOCOBALAMIN 500 MCG TAB PO SCH (09:17)
[2017-06-12] MEDS: FERROUS SULFATE (EC) 325 MG TAB PO SCH (09:17)
[2017-06-12] MEDS: DOCUSATE SODIUM 100 MG CAP PO SCH ×2 (09:17→20:25)
[2017-06-12] MEDS: APIXABAN 5 MG TABLET PO SCH ×2 (09:17→20:24)
[2017-06-12] MEDS: MEXILETINE 150 MG CAP PO SCH (09:17)
[2017-06-12] MEDS: SALMETEROL/FLUTICASONE 250/50 INHA INH SCH ×2 (09:17→20:24)
[2017-06-12] MEDS: BETA CAROTENE/VIT C/E/MIN TAB PO SCH (09:19)
[2017-06-12] MEDS: AMIODARONE 200 MG TAB PO SCH (09:19)
[2017-06-12] MEDS: SENNA TAB PO SCH (09:19)
--- NOTE | 2017-06-12 09:50 | CONS ---
Date/Time of Note Date/Time of Note DATE: 06/12/17 TIME: 09:50 Consult Date/Type/Reason Admit Date/Time May 31, 2017 at 12:40 Type of Consultation: IM Ordering Provider: A[facility]N [facility]RRUTIA [facility], [facility] Subjective patient with variable HR. Case d/w medicine Objective pulm-cta bed ther ex today Vital Signs Date Time Temp Pulse Resp B/P Pulse Ox O2 Delivery O2 Flow Rate FiO2 06/12/17 02:00 98.3 73 18 124/65 97 06/08/17 21:30 Room Air Intake and Output 06/11/17 06/11/17 06/12/17 15:00 23:00 07:00 Intake Total 300 ml 500 ml Output Total 450 ml Balance -150 ml 500 ml Results/Medications Result Diagram: 06/10/17 0611 06/10/17 0611 Medications Current Medications Amiodarone HCl (Cordarone) 200 mg BID PO Last administered on 06/12/17 09:19; Admin Dose 200 MG; Start 05/31/17 at 14:43 Ferrous Sulfate (Ferrous Sulfate (Ec)) 325 mg DAILY PO Last administered on 09:17; Admin Dose 325 MG; Start 05/31/17 at 14:43 Mexiletine HCl (Mexitil) 150 mg DAILY PO Last administered on 06/12/17 09:17; Admin Dose 150 MG; Start 05/31/17 at 14:43 Calcium/Vitamin D (Oyster Shell/ Vit-D (250/125)) 1 tab DAILY PO Last administered on 06/11/17 10:52; Admin Dose 1 TAB; Start 05/31/17 at 14:43 Atorvastatin Calcium (Lipitor) 10 mg DAILY@21 PO Last administered on 21:07; Admin Dose 10 MG; Start 05/31/17 at 14:43 Beta Carotene (Ocuvite) 1 tab DAILY PO Last administered on 06/12/17 09:19; Admin Dose 1 TAB; Start 05/31/17 at 14:43 Acetaminophen (Tylenol Tab) 650 mg Q6H PRN PO PAIN LEVEL 1-3 OR FEVER; Start at 14:43 Salmeterol Xinafoate/ Fluticasone (Advair 250/50 Diskus) 1 inh BID INH Last administered on 06/12/17 09:17; Admin Dose 1 INH; Start 05/31/17 at 14:43 Cyanocobalamin (Vitamin B12) 500 mcg DAILY PO Last administered on 06/12/17 09 :17; Admin Dose 500 MCG; Start 05/31/17 at 14:43 Lisinopril (Zestril) 2.5 mg DAILY PO Last administered on 06/11/17 10:52; Admin Dose 2.5 MG; Start 05/31/17 at 14:43 Acetaminophen/ Hydrocodone Bitart ([place] (5/325)) 1 tab Q4H PRN PO PAIN LEVEL 1 -5 Last administered on 06/12/17 01:21; Admin Dose 1 TAB; Start 06/01/17 at 13: 00 Acetaminophen/ Hydrocodone Bitart ([place] (5/325)) 2 tab Q4H PRN PO PAIN LEVEL 6 -10 Last administered on 06/12/17 09:17; Admin Dose 2 TAB; Start 06/01/17 at 11: 30 Docusate Sodium (Colace) 100 mg BID PO Last administered on 06/12/17 09:17; Admin Dose 100 MG; Start 06/01/17 at 21:00 Senna (Senokot) 1 tab DAILY PO Last administered on 06/12/17 09:19; Admin Dose 1 TAB; Start 06/01/17 at 21:00 Bisacodyl (Dulcolax Supp) 10 mg DAILY PRN [place] CONSTIPATION; Start 06/01/17 at 11: 30 Magnesium Hydroxide (Milk Of Mag) 30 ml DAILY PRN PO CONSTIPATION; Start at 11:30 Lactulose (Enulose) 20 gm DAILY PRN PO CONSTIPATION Last administered on 08:40; Admin Dose 20 GM; Start 06/01/17 at 11:30 Baclofen (Lioresal) 10 mg Q12H PRN PO MUSCLE SPASMS Last administered on 08:40; Admin Dose 10 MG; Start 06/01/17 at 13:00 Apixaban (Eliquis) 5 mg BID PO Last administered on 06/12/17 09:17; Admin Dose 5 MG; Start 06/02/17 at 14:30 Ondansetron HCl (Zofran Inj) 4 mg Q4H PRN IV NAUSEA AND/OR VOMITING Last administered on 06/04/17t 11:24; Admin Dose 4 MG; Start 06/04/17 at 11:30 Assessment/Plan Additional Assessment/Plan Rehab-Right intertrochanteric and subtrochanteric hip fracture status post ORIF. Activities as tolerated, working toward home at end of week with hospice Orthostatic- monitor closely Acute pain syndrome-continue current medications Atrial fibrillation. COPD. History of cardiomyopathy. History of AICD. Hypertension. Hyperlipidemia. Anemia. Thyroid disease. JAYY FARIAS MD Jun 12, 2017 09:50
--- NOTE | 2017-06-12 11:00 | CONS ---
Date/Time of Note Date/Time of Note DATE: 06/12/17 TIME: 10:57 Assessment/Plan Assessment/Plan Chief Complaint/Hosp Course 1. Hip fracture secondary to mechanical fall. Status post open reduction internal fixation of right hip fracture. -PT/OT as tolerated as labile BP is a major concern in the rehabilitation of this gentleman. 2. Atrial fibrillation. -Continue current management 3. Cardiomyopathy with AICD. -Current medical management. 4. Euthyroid Sick Syndrome. -appreciate Endo input 5. Dyslipidemia. -Continue statin 6. E-coli UTI -On LevaquinX x7 days 7. Essential HTN -BP managed per cards 8. Debility PLAN:We will change code status to DNR per patient and family wish. Pt has been accepted to Hospice care. DC planning likely tomorrow. Patient is seen in collaboration with Dr. Urrutia. Problems: Consultation Date/Type/Reason Admit Date/Time May 31, 2017 at 12:40 Initial Consult Date 06/07/17 Type of Consultation: IM Referring Provider: AILYN URRUTIA MD, [facility] 24 HR Interval Summary Free Text/Dictation Blood pressure and heart rate is labile. patient has been excepted to hospice. Exam/Review of Systems Vital Signs Vitals Vital Signs Date Time Temp Pulse Resp B/P Pulse Ox O2 Delivery O2 Flow Rate FiO2 06/12/17 02:00 98.3 73 18 124/65 97 06/08/17 21:30 Room Air Intake and Output 06/11/17 06/11/17 06/12/17 15:00 23:00 07:00 Intake Total 300 ml 500 ml Output Total 450 ml Balance -150 ml 500 ml Exam General: Well developed,adequately built, not in any acute distress . HEENT: Normocephalic, Atraumatic, No laceration or hematoma; Eyes: PEERL, Conjunctiva clear, Anicteric sclera Neck: Supple without any lymphadenopathy, nontender, no JVD, no carotid bruits, trachea midline, no thyromegaly Cardiac: S1, S2 auscultated, regular rhythm and rate, no mumurs or gallop Pulmonary: Normal respiratory effort. Chest clear to auscultation bilaterally, no adventitious breath sounds GI: Abdomen normal to inspection. Soft, non tender, non- distended, no masses, no rebound tenderness or guarding. Bowel sounds active on all four quadrants Genitourinary: Deferred Extremities: Right hip surgical site intact. no cyanosis, clubbing, or edema. Pulses [2+] bilaterally. Full ROM on all four extremities. No focal weakness appreciated. Neurologic: Alert to person, place, time, and situation. Affect appropriate, intact sensation. Skin: Clean,dry, and intact. No ecchymosis, no rashes, or lesions Results Result Diagram: 06/10/1711 06/10/17 0611 Medications Medications Current Medications Amiodarone HCl (Cordarone) 200 mg BID PO Last administered on 06/12/17 09:19; Admin Dose 200 MG; Start 05/31/17 at 14:43 Ferrous Sulfate (Ferrous Sulfate (Ec)) 325 mg DAILY PO Last administered on 09:17; Admin Dose 325 MG; Start 05/31/17 at 14:43 Mexiletine HCl (Mexitil) 150 mg DAILY PO Last administered on 06/12/17 09:17; Admin Dose 150 MG; Start 05/31/17 at 14:43 Calcium/Vitamin D (Oyster Shell/ Vit-D (250/125)) 1 tab DAILY PO Last administered on 06/11/17 10:52; Admin Dose 1 TAB; Start 05/31/17 at 14:43 Atorvastatin Calcium (Lipitor) 10 mg DAILY@21 PO Last administered on 21:07; Admin Dose 10 MG; Start 05/31/17 at 14:43 Beta Carotene (Ocuvite) 1 tab DAILY PO Last administered on 06/12/17 09:19; Admin Dose 1 TAB; Start 05/31/17 at 14:43 Acetaminophen (Tylenol Tab) 650 mg Q6H PRN PO PAIN LEVEL 1-3 OR FEVER; Start at 14:43 Salmeterol Xinafoate/ Fluticasone (Advair 250/50 Diskus) 1 inh BID INH Last administered on 06/12/17 09:17; Admin Dose 1 INH; Start 05/31/17 at 14:43 Cyanocobalamin (Vitamin B12) 500 mcg DAILY PO Last administered on 06/12/17 09 :17; Admin Dose 500 MCG; Start 05/31/17 at 14:43 Lisinopril (Zestril) 2.5 mg DAILY PO Last administered on 06/11/17 10:52; Admin Dose 2.5 MG; Start 05/31/17 at 14:43 Acetaminophen/ Hydrocodone Bitart ([place] (5/325)) 1 tab Q4H PRN PO PAIN LEVEL 1 -5 Last administered on 06/12/17 01:21; Admin Dose 1 TAB; Start 06/01/17 at 13: 00 Acetaminophen/ Hydrocodone Bitart ([place] (5/325)) 2 tab Q4H PRN PO PAIN LEVEL 6 -10 Last administered on 06/12/17 09:17; Admin Dose 2 TAB; Start 06/01/17 at 11: 30 Docusate Sodium (Colace) 100 mg BID PO Last administered on 06/12/17 09:17; Admin Dose 100 MG; Start 06/01/17 at 21:00 Senna (Senokot) 1 tab DAILY PO Last administered on 06/12/17 09:19; Admin Dose 1 TAB; Start 06/01/17 at 21:00 Bisacodyl (Dulcolax Supp) 10 mg DAILY PRN [place] CONSTIPATION; Start 06/01/17 at 11: 30 Magnesium Hydroxide (Milk Of Mag) 30 ml DAILY PRN PO CONSTIPATION; Start at 11:30 Lactulose (Enulose) 20 gm DAILY PRN PO CONSTIPATION Last administered on 08:40; Admin Dose 20 GM; Start 06/01/17 at 11:30 Baclofen (Lioresal) 10 mg Q12H PRN PO MUSCLE SPASMS Last administered on 08:40; Admin Dose 10 MG; Start 06/01/17 at 13:00 Apixaban (Eliquis) 5 mg BID PO Last administered on 06/12/17 09:17; Admin Dose 5 MG; Start 06/02/17 at 14:30 Ondansetron HCl (Zofran Inj) 4 mg Q4H PRN IV NAUSEA AND/OR VOMITING Last administered on 06/04/17 11:24; Admin Dose 4 MG; Start 06/04/17 at 11:30 NELLY LEVI NP Jun 12, 2017 11:00
--- NOTE | 2017-06-12 17:05 | CONS ---
Date/Time of Note Date/Time of Note DATE: 06/12/17 TIME: 17:01 Assessment/Plan Assessment/Plan Chief Complaint/Hosp Course IMPRESSION: 1. Preoperative evaluation prior to possible open reduction and internal fixation of hip.-negative trop x 3. NO cp. EF 40%. NO contraindicated valve lesions. Thus no contraindication to proceeding to or at this time on current medications without further non-invasive evaluation but given low EF and h/o arrythmias is at high risk. -Now post op s/p LE ORIF and transferred to rehab 2. Status post fall, mechanical by description. 3. History of automatic implantable cardioverter defibrillator on anti- arrythmics 4. Presumed cardiomyopathy. 5. History of atrial fibrillation/ventricular arrythmias-primary EP Dr Casanova 6. Hip fracture. 7. Dyslipidemia. 8. Cardiomyopathy-EF 40% 9. Hyperthyroid by TSH/FT4 this admit 10.Hypotension-overall improved today with holding of BB 11.BRadycardia-to 30's at time RECC: -Continue ACEI as tolerated for treatment of cardiomyopathy with holding of BB currently due to recurrent hypotension(orthostatic) during PT session -follow volume status closely which is euvolemic at this time -Continue statin -Continue mexilitene -Will continue amio but decrease to daily given sharri to 30's at times for now as have spoken with primary EP, Dr Casanova who states that patient had incessant VT refractory to ablation and only controlled with current regimen. Will repeat labs soonto reassess for possible resolution -PT/OT -12 lead ecg to document rhythm Problems: Consultation Date/Type/Reason Admit Date/Time May 31, 2017 at 12:40 Initial Consult Date 05/31/17 Type of Consultation: cardiology Reason for Consultation AF.Cardiomyopathy Referring Provider: A[facility]RRUTIA MD, [facility] Exam/Review of Systems Vital Signs Vitals Vital Signs Date Time Temp Pulse Resp B/P Pulse Ox O2 Delivery O2 Flow Rate FiO2 06/12/17 02:00 98.3 73 18 124/65 97 06/08/17 21:30 Room Air Intake and Output 06/11/17 06/11/17 06/12/17 15:00 23:00 07:00 Intake Total 300 ml 500 ml Output Total 450 ml Balance -150 ml 500 ml Exam Review of Systems: CONSTITUTIONAL: No fevers, chills. PULMONARY: No sob CARDIOVASCULAR: No chest pain/palpitations GASTROINTESTINAL: No nausea/vomiting. GENITOURINARY: No hematuria/dysuria. MUSCULOSKELETAL: No myagias/arthalgias. PSYCHIATRIC: The patient denies depression. NEUROLOGIC: mild generalized weakness Constitutional: alert Psych: no complaints Head: normocephalic ENMT: mucosa pink and moist Neck: jvd (9 cm water), supple Respiratory: diminished breath sounds Cardiovascular: regular rate and rhythm Gastrointestinal: non-tender, soft Musculoskeletal: muscle tone Extremities: pitting pedal edema (none) Neurological: other (No focal deficits) Results Result Diagram: 06/10/1761006/10/17 0611 Medications Medications Current Medications Amiodarone HCl (Cordarone) 200 mg BID PO Last administered on 06/12/17 09:19; Admin Dose 200 MG; Start 05/31/17 at 14:43 Ferrous Sulfate (Ferrous Sulfate (Ec)) 325 mg DAILY PO Last administered on 09:17; Admin Dose 325 MG; Start 05/31/17 at 14:43 Mexiletine HCl (Mexitil) 150 mg DAILY PO Last administered on 06/12/17 09:17; Admin Dose 150 MG; Start 05/31/17 at 14:43 Calcium/Vitamin D (Oyster Shell/ Vit-D (250/125)) 1 tab DAILY PO Last administered on 06/11/17 10:52; Admin Dose 1 TAB; Start 05/31/17 at 14:43 Atorvastatin Calcium (Lipitor) 10 mg DAILY@21 PO Last administered on 21:07; Admin Dose 10 MG; Start 05/31/17 at 14:43 Beta Carotene (Ocuvite) 1 tab DAILY PO Last administered on 06/12/17 09:19; Admin Dose 1 TAB; Start 05/31/17 at 14:43 Acetaminophen (Tylenol Tab) 650 mg Q6H PRN PO PAIN LEVEL 1-3 OR FEVER; Start at 14:43 Salmeterol Xinafoate/ Fluticasone (Advair 250/50 Diskus) 1 inh BID INH Last administered on 06/12/17 09:17; Admin Dose 1 INH; Start 05/31/17 at 14:43 Cyanocobalamin (Vitamin B12) 500 mcg DAILY PO Last administered on 06/12/17 09 :17; Admin Dose 500 MCG; Start 05/31/17 at 14:43 Lisinopril (Zestril) 2.5 mg DAILY PO Last administered on 06/11/17 10:52; Admin Dose 2.5 MG; Start 05/31/17 at 14:43 Acetaminophen/ Hydrocodone Bitart ([place] (5/325)) 1 tab Q4H PRN PO PAIN LEVEL 1 -5 Last administered on 06/12/17 01:21; Admin Dose 1 TAB; Start 06/01/17 at 13: 00 Acetaminophen/ Hydrocodone Bitart ([place] (5/325)) 2 tab Q4H PRN PO PAIN LEVEL 6 -10 Last administered on 06/12/17 09:17; Admin Dose 2 TAB; Start 06/01/17 at 11: 30 Docusate Sodium (Colace) 100 mg BID PO Last administered on 06/12/17 09:17; Admin Dose 100 MG; Start 06/01/17 at 21:00 Senna (Senokot) 1 tab DAILY PO Last administered on 06/12/17 09:19; Admin Dose 1 TAB; Start 06/01/17 at 21:00 Bisacodyl (Dulcolax Supp) 10 mg DAILY PRN [place] CONSTIPATION; Start 06/01/17 at 11: 30 Magnesium Hydroxide (Milk Of Mag) 30 ml DAILY PRN PO CONSTIPATION; Start at 11:30 Lactulose (Enulose) 20 gm DAILY PRN PO CONSTIPATION Last administered on 08:40; Admin Dose 20 GM; Start 06/01/17 at 11:30 Baclofen (Lioresal) 10 mg Q12H PRN PO MUSCLE SPASMS Last administered on 08:40; Admin Dose 10 MG; Start 06/01/17 at 13:00 Apixaban (Eliquis) 5 mg BID PO Last administered on 06/12/17 09:17; Admin Dose 5 MG; Start 06/02/17 at 14:30 Ondansetron HCl (Zofran Inj) 4 mg Q4H PRN IV NAUSEA AND/OR VOMITING Last administered on 06/04/17 11:24; Admin Dose 4 MG; Start 9/12/17 at 11:30 VEDA GARCES Jun 12, 2017 17:05
[2017-06-12 20:00] VITALS: BP 106/54; RESP 18
[2017-06-12] MEDS: ATORVASTATIN 10 MG TAB PO SCH (20:24)
--- NOTE | 2017-06-12 20:40 | CONS ---
DATE OF ADMISSION: 05/31/2017 DATE OF CONSULTATION: 06/12/2017 TYPE OF CONSULTATION: Psychological. REFERRING PHYSICIAN: Sugar Gardiner MD CONSULTING PSYCHOLOGIST: Wilder Reinoso, PhD. REASON FOR CONSULTATION: This consultation was requested by Dr. Kenneth Gardiner in order to evaluate the cognitive and emotional function of this patient related to his present medical condition. HISTORY OF PRESENT ILLNESS: The patient is an 87-year-old male. He has a past medical history of atrial fibrillation, cardiomyopathy with AICD. The patient was admitted following a fall that he sustained at home. The patient did have a right humeral fracture from the fall. This required open reduction, internal fixation performed on 05/25/2017. The patient now has been transferred to the acute rehabilitation unit for continued care, acute multidisciplinary rehabilitation. The patient did show some confusion while he was being talked to but was reporting that he was feeling better now that he was in a program and starting to gain strength. SOCIAL HISTORY: The patient reports that he lives in a home in [place] with his . The patient reports that he has a caregiver that comes in 4 times a week. The patient does want to return home at discharge. MEDICATION: The patient is currently not on any psychotropic medication. SUBSTANCE USE: The patient reports that he does not use alcohol or other drugs. The patient reports that he does not smoke. The patient did report that he smoked up until 5 years ago. MENTAL STATUS EXAMINATION: APPEARANCE: The patient was seen in bed. He appears to be of average height and overweight. The patient has short baumann hair and is right-handed. BEHAVIOR: The patient was cooperative during the consultation. The patient did attempt to answer all questions presented to him by the interviewer. MOOD AND AFFECT: The patient's mood appears to be slightly depressed. Affect does appear to be slightly anxious. The patient reports that he actually is feeling okay at the present time, but appears to be a little confused about everything that is happening around him. PERCEPTION: Patient reports no hallucinations or delusions. The patient was alert to person, place, situation, and time. MEMORY AND COGNITION: The patient's memory and cognition had some slight impairments. The patient was able to name the hospital. The patient was able to state the month and the year. The patient was able to say who the President of [facility] is, the governor of the state, and the Mayor of the [place] [facility]. The patient was unable to spell world backwards and he could not do any serial 7 subtractions from 100. INTELLIGENCE: Intelligence appears to fall in the average range when he is functioning well. INSIGHT: Poor. JUDGMENT: THOUGHT CONTENT: The patient is concerned about his present medical condition. The patient does want to return home as functional as he can be. There is a likelihood that he is going to be placed on hospice when he returns home. The patient is not aware of this at the present time to my knowledge. DISCUSSION: Patient can possibly benefit from some cognitive/behavioral psychotherapy while he is on the unit. Psychotherapy would focus on his underlying level of frustration about his overall medical problems. DIAGNOSTIC IMPRESSION: 1. 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 2. 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 Thank you very much, Dr. Kenneth Gardiner, for referring this individual. Please do not hesitate to call if you have additional questions. Dictated By: Wilder Reinoso, PHD /fito/jena /Document#: [id number] LYNDA
[2017-06-13 07:30] VITALS: BP 124/57; RESP 18
[2017-06-13] MEDS: LISINOPRIL 5 MG TAB PO SCH (09:00)
[2017-06-13] MEDS: BETA CAROTENE/VIT C/E/MIN TAB PO SCH (09:40)
[2017-06-13] MEDS: DOCUSATE SODIUM 100 MG CAP PO SCH ×2 (09:40→21:47)
[2017-06-13] MEDS: SALMETEROL/FLUTICASONE 250/50 INHA INH SCH ×2 (09:40→21:48)
[2017-06-13] MEDS: APIXABAN 5 MG TABLET PO SCH ×2 (09:40→21:47)
[2017-06-13] MEDS: MEXILETINE 150 MG CAP PO SCH (09:40)
[2017-06-13] MEDS: FERROUS SULFATE (EC) 325 MG TAB PO SCH (09:41)
[2017-06-13] MEDS: CYANOCOBALAMIN 500 MCG TAB PO SCH (09:41)
[2017-06-13] MEDS: SENNA TAB PO SCH (09:41)
[2017-06-13] MEDS: AMIODARONE 200 MG TAB PO SCH (09:45)
[2017-06-13] MEDS: BALSAM PERU/CASTOR OIL 60 GM TUBE TOP SCH ×2 (09:49→21:00)
[2017-06-13] MEDS: CALCIUM/VITAMIN D (250/125) TAB PO SCH (11:17)
--- NOTE | 2017-06-13 12:30 | CONS ---
Date/Time of Note Date/Time of Note DATE: 06/13/17 TIME: 12:29 Consult Date/Type/Reason Admit Date/Time May 31, 2017 at 12:40 Type of Consultation: cardiology Ordering Provider: A[facility]N URRUTIA MD, [facility] Subjective Up OOB for activities today Objective pulm-cta max assist Vital Signs Date Time Temp Pulse Resp B/P Pulse Ox O2 Delivery O2 Flow Rate FiO2 06/13/17 07:30 99.2 66 18 124/57 98 Intake and Output 06/12/17 06/12/17 06/13/17 15:00 23:00 07:00 Intake Total 800 ml Output Total 600 ml 600 ml Balance 200 ml -600 ml Results/Medications Result Diagram: 06/10/17 0606/10/17 0611 Medications Current Medications Ferrous Sulfate (Ferrous Sulfate (Ec)) 325 mg DAILY PO Last administered on 09:41; Admin Dose 325 MG; Start 05/31/17 at 14:43 Mexiletine HCl (Mexitil) 150 mg DAILY PO Last administered on 06/13/17 09:40; Admin Dose 150 MG; Start 05/31/17 at 14:43 Calcium/Vitamin D (Oyster Shell/ Vit-D (250/125)) 1 tab DAILY PO Last administered on 06/13/17 11:17; Admin Dose 1 TAB; Start 05/31/17 at 14:43 Atorvastatin Calcium (Lipitor) 10 mg DAILY@21 PO Last administered on 20:24; Admin Dose 10 MG; Start 05/31/17 at 14:43 Beta Carotene (Ocuvite) 1 tab DAILY PO Last administered on 06/13/17 09:40; Admin Dose 1 TAB; Start 05/31/17 at 14:43 Acetaminophen (Tylenol Tab) 650 mg Q6H PRN PO PAIN LEVEL 1-3 OR FEVER; Start at 14:43 Salmeterol Xinafoate/ Fluticasone (Advair 250/50 Diskus) 1 inh BID INH Last administered on 06/13/17 09:40; Admin Dose 1 INH; Start 05/31/17 at 14:43 Cyanocobalamin (Vitamin B12) 500 mcg DAILY PO Last administered on 06/13/17 09 :41; Admin Dose 500 MCG; Start 05/31/17 at 14:43 Lisinopril (Zestril) 2.5 mg DAILY PO Last administered on 06/11/17 10:52; Admin Dose 2.5 MG; Start 05/31/17 at 14:43 Acetaminophen/ Hydrocodone Bitart ([place] (5/325)) 1 tab Q4H PRN PO PAIN LEVEL 1 -5 Last administered on 06/12/17 20:24; Admin Dose 1 TAB; Start 06/01/17 at 13: 00 Acetaminophen/ Hydrocodone Bitart ([place] (5/325)) 2 tab Q4H PRN PO PAIN LEVEL 6 -10 Last administered on 06/12/17 09:17; Admin Dose 2 TAB; Start 06/01/17 at 11: 30 Docusate Sodium (Colace) 100 mg BID PO Last administered on 06/13/17 09:40; Admin Dose 100 MG; Start 06/01/17 at 21:00 Senna (Senokot) 1 tab DAILY PO Last administered on 06/13/17 09:41; Admin Dose 1 TAB; Start 06/01/17 at 21:00 Bisacodyl (Dulcolax Supp) [address] CONSTIPATION; Start 06/01/17 at 11: 30 Magnesium Hydroxide (Milk Of Mag) 30 ml DAILY PRN PO CONSTIPATION; Start at 11:30 Lactulose (Enulose) 20 gm DAILY PRN PO CONSTIPATION Last administered on 08:40; Admin Dose 20 GM; Start 06/01/17 at 11:30 Baclofen (Lioresal) 10 mg Q12H PRN PO MUSCLE SPASMS Last administered on 08:40; Admin Dose 10 MG; Start 06/01/17 at 13:00 Apixaban (Eliquis) 5 mg BID PO Last administered on 06/13/17 09:40; Admin Dose 5 MG; Start 06/02/17 at 14:30 Ondansetron HCl (Zofran Inj) 4 mg Q4H PRN IV NAUSEA AND/OR VOMITING Last administered on 06/04/17 11:24; Admin Dose 4 MG; Start 06/04/17 at 11:30 Amiodarone HCl (Cordarone) 200 mg DAILY PO Last administered on 9/21/17at 09:45 ; Admin Dose 200 MG; Start 06/13/17 at 09:00 Assessment/Plan Additional Assessment/Plan Rehab-Right intertrochanteric and subtrochanteric hip fracture status post ORIF. Activities as tolerated, working toward home tomorrow with hospice Orthostatic- monitor closely Acute pain syndrome-continue current medications Atrial fibrillation. COPD. History of cardiomyopathy. History of AICD. Hypertension. Hyperlipidemia. Anemia. Thyroid disease. JAYY FARIAS MD Jun 13, 2017 12:30
--- NOTE | 2017-06-13 13:03 | CONS ---
Date/Time of Note Date/Time of Note DATE: 06/13/17 TIME: 13:00 Assessment/Plan Assessment/Plan Chief Complaint/Hosp Course 1. Hip fracture secondary to mechanical fall. Status post open reduction internal fixation of right hip fracture. -PT/OT as tolerated as labile BP is a major concern in the rehabilitation of this gentleman. 2. Atrial fibrillation. -Continue current management 3. Cardiomyopathy with AICD. -Current medical management. 4. Euthyroid Sick Syndrome. -appreciate Endo input 5. Dyslipidemia. -Continue statin 6. E-coli UTI -On LevaquinX x7 days 7. Essential HTN -BP managed per cards 8. Debility PLAN: Pt has been accepted to Hospice care. DC planning home with hospice tomorrow. DNR status. Patient is seen in collaboration with Dr. Urrutia. Problems: Consultation Date/Type/Reason Admit Date/Time May 31, 2017 at 12:40 Initial Consult Date 06/07/17 Type of Consultation: cardiology Referring Provider: AILYN URRUTIA MD, [facility] 24 HR Interval Summary Free Text/Dictation No acute changes. Exam/Review of Systems Vital Signs Vitals Vital Signs Date Time Temp Pulse Resp B/P Pulse Ox O2 Delivery O2 Flow Rate FiO2 06/13/17 07:30 99.2 66 18 124/57 98 Intake and Output 06/12/17 06/12/17 06/13/17 15:00 23:00 07:00 Intake Total 800 ml Output Total 600 ml 600 ml Balance 200 ml -600 ml Exam General: Well developed,adequately built, not in any acute distress . HEENT: Normocephalic, Atraumatic, No laceration or hematoma; Eyes: PEERL, Conjunctiva clear, Anicteric sclera Neck: Supple without any lymphadenopathy, nontender, no JVD, no carotid bruits, trachea midline, no thyromegaly Cardiac: S1, S2 auscultated, regular rhythm and rate, no mumurs or gallop Pulmonary: Normal respiratory effort. Chest clear to auscultation bilaterally, no adventitious breath sounds GI: Abdomen normal to inspection. Soft, non tender, non- distended, no masses, no rebound tenderness or guarding. Bowel sounds active on all four quadrants Genitourinary: Deferred Extremities: Right hip surgical site intact. no cyanosis, clubbing, or edema. Pulses [2+] bilaterally. Full ROM on all four extremities. No focal weakness appreciated. Neurologic: Alert to person, place, time, and situation. Affect appropriate, intact sensation. Skin: Clean,dry, and intact. No ecchymosis, no rashes, or lesions Results Result Diagram: 06/10/17 0606/10/17 0611 Medications Medications Current Medications Ferrous Sulfate (Ferrous Sulfate (Ec)) 325 mg DAILY PO Last administered on 09:41; Admin Dose 325 MG; Start 05/31/17 at 14:43 Mexiletine HCl (Mexitil) 150 mg DAILY PO Last administered on 06/13/17 09:40; Admin Dose 150 MG; Start 05/31/17 at 14:43 Calcium/Vitamin D (Oyster Shell/ Vit-D (250/125)) 1 tab DAILY PO Last administered on 06/13/17 11:17; Admin Dose 1 TAB; Start 05/31/17 at 14:43 Atorvastatin Calcium (Lipitor) 10 mg DAILY@21 PO Last administered on 20:24; Admin Dose 10 MG; Start 05/31/17 at 14:43 Beta Carotene (Ocuvite) 1 tab DAILY PO Last administered on 06/13/17 09:40; Admin Dose 1 TAB; Start 05/31/17 at 14:43 Acetaminophen (Tylenol Tab) 650 mg Q6H PRN PO PAIN LEVEL 1-3 OR FEVER; Start at 14:43 Salmeterol Xinafoate/ Fluticasone (Advair 250/50 Diskus) 1 inh BID INH Last administered on 06/13/17 09:40; Admin Dose 1 INH; Start 05/31/17 at 14:43 Cyanocobalamin (Vitamin B12) 500 mcg DAILY PO Last administered on 06/13/17 09 :41; Admin Dose 500 MCG; Start 05/31/17 at 14:43 Lisinopril (Zestril) 2.5 mg DAILY PO Last administered on 06/11/17 10:52; Admin Dose 2.5 MG; Start 05/31/17 at 14:43 Acetaminophen/ Hydrocodone Bitart ([place] (5/325)) 1 tab Q4H PRN PO PAIN LEVEL 1 -5 Last administered on 06/12/17 20:24; Admin Dose 1 TAB; Start 06/01/17 at 13: 00 Acetaminophen/ Hydrocodone Bitart ([place] (5/325)) 2 tab Q4H PRN PO PAIN LEVEL 6 -10 Last administered on 06/12/17 09:17; Admin Dose 2 TAB; Start 06/01/17 at 11: 30 Docusate Sodium (Colace) 100 mg BID PO Last administered on 06/13/17 09:40; Admin Dose 100 MG; Start 06/01/17 at 21:00 Senna (Senokot) 1 tab DAILY PO Last administered on 06/13/17 09:41; Admin Dose 1 TAB; Start 06/01/17 at 21:00 Bisacodyl (Dulcolax Supp) 10 mg DAILY PRN [place] CONSTIPATION; Start 06/01/17 at 11: 30 Magnesium Hydroxide (Milk Of Mag) 30 ml DAILY PRN PO CONSTIPATION; Start at 11:30 Lactulose (Enulose) 20 gm DAILY PRN PO CONSTIPATION Last administered on 08:40; Admin Dose 20 GM; Start 06/01/17 at 11:30 Baclofen (Lioresal) 10 mg Q12H PRN PO MUSCLE SPASMS Last administered on 08:40; Admin Dose 10 MG; Start 06/01/17 at 13:00 Apixaban (Eliquis) 5 mg BID PO Last administered on 06/13/17 09:40; Admin Dose 5 MG; Start 06/02/17 at 14:30 Ondansetron HCl (Zofran Inj) 4 mg Q4H PRN IV NAUSEA AND/OR VOMITING Last administered on 06/04/17 11:24; Admin Dose 4 MG; Start 06/04/17 at 11:30 Amiodarone HCl (Cordarone) 200 mg DAILY PO Last administered on 06/13/17 09:45 ; Admin Dose 200 MG; Start 06/13/17 at 09:00 NELLY LEVI NP Jun 13, 2017 13:03
[2017-06-13] MEDS: HYDROCODONE/APAP (5/325) TAB PO PRN (14:48)
[2017-06-13 16:30] VITALS: BP 144/66; RESP 18
--- NOTE | 2017-06-13 18:44 | CONS ---
Date/Time of Note Date/Time of Note DATE: 06/13/17 TIME: 18:40 Assessment/Plan Assessment/Plan Chief Complaint/Hosp Course IMPRESSION: 1. Preoperative evaluation prior to possible open reduction and internal fixation of hip.-negative trop x 3. NO cp. EF 40%. NO contraindicated valve lesions. Thus no contraindication to proceeding to or at this time on current medications without further non-invasive evaluation but given low EF and h/o arrythmias is at high risk. -Now post op s/p LE ORIF and transferred to rehab 2. Status post fall, mechanical by description. 3. History of automatic implantable cardioverter defibrillator on anti- arrythmics 4. Cardiomyopathy. 5. History of atrial fibrillation/ventricular arrythmias-primary EP Dr Casanova 6. Hip fracture. 7. Dyslipidemia. 8. Hyperthyroid by TSH/FT4 this admit 9.Hypotension-overall improved today with holding of BB 10.BRadycardia-to 30's at time-improved currently on decreased dose of amio and holding of BB RECC: -Continue ACEI as tolerated for treatment of cardiomyopathy with holding of BB currently due to recurrent hypotension(orthostatic) during PT session -follow volume status closely which is euvolemic at this time -Continue statin -Continue mexilitene -Will continue amio daily for now as have spoken with primary EP, Dr Casanova who states that patient had incessant VT refractory to ablation and only controlled with current regimen. Will repeat labs soon to reassess for possible resolution -PT/OT Problems: Consultation Date/Type/Reason Admit Date/Time May 31, 2017 at 12:40 Initial Consult Date 05/31/17 Type of Consultation: cardiology Reason for Consultation AF/ICD Referring Provider: AILYN URRUTIA MD, [facility] Exam/Review of Systems Vital Signs Vitals Vital Signs Date Time Temp Pulse Resp B/P Pulse Ox O2 Delivery O2 Flow Rate FiO2 06/13/17 16:30 97.8 70 18 144/66 99 Intake and Output 06/12/17 06/12/17 06/13/17 15:00 23:00 07:00 Intake Total 800 ml Output Total 600 ml 600 ml Balance 200 ml -600 ml Exam Review of Systems: CONSTITUTIONAL: No fevers, chills. PULMONARY: No sob CARDIOVASCULAR: No chest pain/palpitations GASTROINTESTINAL: No nausea/vomiting. GENITOURINARY: No hematuria/dysuria. MUSCULOSKELETAL: No myagias/arthalgias. PSYCHIATRIC: The patient denies depression. NEUROLOGIC: No weakness Constitutional: alert Psych: no complaints Head: normocephalic ENMT: mucosa pink and moist Neck: jvd (9 cm water), supple Respiratory: clear to auscultation Cardiovascular: regular rate and rhythm Gastrointestinal: soft Musculoskeletal: muscle weakness (mld generalized) Extremities: edema (none) Neurological: other (No focal deficits) Results Result Diagram: 06/10/17 0611 06/10/17 0611 Medications Medications Current Medications Ferrous Sulfate (Ferrous Sulfate (Ec)) 325 mg DAILY PO Last administered on 09:41; Admin Dose 325 MG; Start 05/31/17 at 14:43 Mexiletine HCl (Mexitil) 150 mg DAILY PO Last administered on 06/13/17 09:40; Admin Dose 150 MG; Start 05/31/17 at 14:43 Calcium/Vitamin D (Oyster Shell/ Vit-D (250/125)) 1 tab DAILY PO Last administered on 06/13/17 11:17; Admin Dose 1 TAB; Start 05/31/17 at 14:43 Atorvastatin Calcium (Lipitor) 10 mg DAILY@21 PO Last administered on 20:24; Admin Dose 10 MG; Start 05/31/17 at 14:43 Beta Carotene (Ocuvite) 1 tab DAILY PO Last administered on 06/13/17 09:40; Admin Dose 1 TAB; Start 05/31/17 at 14:43 Acetaminophen (Tylenol Tab) 650 mg Q6H PRN PO PAIN LEVEL 1-3 OR FEVER; Start at 14:43 Salmeterol Xinafoate/ Fluticasone (Advair 250/50 Diskus) 1 inh BID INH Last administered on 06/13/17 09:40; Admin Dose 1 INH; Start 05/31/17 at 14:43 Cyanocobalamin (Vitamin B12) 500 mcg DAILY PO Last administered on 06/13/17 09 :41; Admin Dose 500 MCG; Start 05/31/17 at 14:43 Lisinopril (Zestril) 2.5 mg DAILY PO Last administered on 06/11/17 10:52; Admin Dose 2.5 MG; Start 05/31/17 at 14:43 Acetaminophen/ Hydrocodone Bitart ([place] (5/325)) 1 tab Q4H PRN PO PAIN LEVEL 1 -5 Last administered on 06/13/17 14:48; Admin Dose 1 TAB; Start 06/01/17 at 13: 00 Acetaminophen/ Hydrocodone Bitart ([place] (5/325)) 2 tab Q4H PRN PO PAIN LEVEL 6 -10 Last administered on 06/12/17 09:17; Admin Dose 2 TAB; Start 06/01/17 at 11: 30 Docusate Sodium (Colace) 100 mg BID PO Last administered on 06/13/17 09:40; Admin Dose 100 MG; Start 06/01/17 at 21:00 Senna (Senokot) 1 tab DAILY PO Last administered on 06/13/17 09:41; Admin Dose 1 TAB; Start 06/01/17 at 21:00 Bisacodyl (Dulcolax Supp) 10 mg DAILY PRN [place] CONSTIPATION; Start 06/01/17 at 11: 30 Magnesium Hydroxide (Milk Of Mag) 30 ml DAILY PRN PO CONSTIPATION; Start at 11:30 Lactulose (Enulose) 20 gm DAILY PRN PO CONSTIPATION Last administered on 08:40; Admin Dose 20 GM; Start 06/01/17 at 11:30 Baclofen (Lioresal) 10 mg Q12H PRN PO MUSCLE SPASMS Last administered on 08:40; Admin Dose 10 MG; Start 06/01/17 at 13:00 Apixaban (Eliquis) 5 mg BID PO Last administered on 06/13/17 09:40; Admin Dose 5 MG; Start 06/02/17 at 14:30 Ondansetron HCl (Zofran Inj) 4 mg Q4H PRN IV NAUSEA AND/OR VOMITING Last administered on 06/04/17 11:24; Admin Dose 4 MG; Start 06/04/17 at 11:30 Amiodarone HCl (Cordarone) 200 mg DAILY PO Last administered on 06/13/17 09:45 ; Admin Dose 200 MG; Start 06/13/17 at 09:00 VEDA GARCES Jun 13, 2017 18:43
[2017-06-13 20:00] VITALS: BP 110/57; RESP 18
[2017-06-13] MEDS: ATORVASTATIN 10 MG TAB PO SCH (21:47)
[2017-06-14 02:20] VITALS: BP 125/68; RESP 18
[2017-06-14] MEDS: BALSAM PERU/CASTOR OIL 60 GM TUBE TOP SCH (09:00)
[2017-06-14] MEDS: SALMETEROL/FLUTICASONE 250/50 INHA INH SCH (09:26)
[2017-06-14] MEDS: BETA CAROTENE/VIT C/E/MIN TAB PO SCH (09:26)
[2017-06-14] MEDS: FERROUS SULFATE (EC) 325 MG TAB PO SCH (09:27)
[2017-06-14] MEDS: DOCUSATE SODIUM 100 MG CAP PO SCH (09:27)
[2017-06-14] MEDS: APIXABAN 5 MG TABLET PO SCH (09:27)
[2017-06-14] MEDS: MEXILETINE 150 MG CAP PO SCH (09:27)
[2017-06-14] MEDS: CYANOCOBALAMIN 500 MCG TAB PO SCH (09:27)
[2017-06-14] MEDS: LISINOPRIL 5 MG TAB PO SCH (09:27)
[2017-06-14] MEDS: CALCIUM/VITAMIN D (250/125) TAB PO SCH (09:27)
[2017-06-14] MEDS: SENNA TAB PO SCH (09:27)
[2017-06-14] MEDS: HYDROCODONE/APAP (5/325) TAB PO PRN (09:28)
[2017-06-14] MEDS: AMIODARONE 200 MG TAB PO SCH (09:29)
--- NOTE | 2017-06-14 11:12 | DS ---
Date/Time of Note Date/Time of Note DATE: 06/14/17 TIME: 11:06 Discharge Summary Admission/Discharge Info Admit Date/Time May 31, 2017 at 12:40 Discharge Date/Time Discharge Diagnosis 1.Right intertrochanteric and subtrochanteric hip fracture status post ORIF. 2. Significant Cardiomyopathy, Atrial fibrillation, h.o AICD 3. COPD. 4. Acute pain, improving 5. Hypertension 6. Orhtostatic hypotension. 7. Hyperlipidemia. 8. Anemia. 9. Thyroid disease. 10. Impairments in self-care and mobility. Patient Condition: Fair Hospital Course patient admitted for interdisciplinary rehab. He made gradual gains during his stay. His biggest rehab barrier has been is orthostatic hypotension. Family has been trained in assistance, and numerous family conferences held to review medical and functional status and goals. Family and patient ultimately decided to go home with hospice, given the significant cardiomyopathy, in addition to impariments in self care and mobility. Home Meds Active Scripts Metoprolol Succinate* (Toprol XL*) 25 Mg Tab.sr.24h, 25 MG PO BID for 15 Days Prov:GALE PAK NP 05/30/17 Lisinopril* (Lisinopril*) 5 Mg Tablet, 2.5 MG PO DAILY for 15 Days, TAB Prov:GALE PAK NP 05/30/17 Enoxaparin Sodium (Enoxaparin Sodium) 40 Mg/0.4 Ml Syringe, 40 MG SC DAILY for 15 Days Prov:GALE PAK NP 05/30/17 Reported Medications Vit C/Billie Ac/Lut/Copper/Znox (PRESERVISION LUTEIN SOFTGEL) 1 Each Capsule, 1 EACH PO DAILY 07/28/15 Calcium Carbonate-Vitamin D3 (Calcium + D 600 Tablet) 1 Tab Tablet, 1 TAB PO DAILY, TAB 07/28/15 Ferrous Sulfate* (Ferrous Sulfate*) 325 Mg Tabec, 325 MG PO DAILY, TAB 07/28/15 Cyanocobalamin* (Vitamin B-12*) 100 Mcg Tablet, 100 MCG PO DAILY, TAB 07/28/15 Mexiletine Hcl* (Mexiletine Hcl*) 150 Mg Capsule, 150 MG PO DAILY, CAP 07/28/15 Amiodarone Hcl* (Amiodarone Hcl*) 200 Mg Tablet, 200 MG PO BID, TAB 11/5/15 Simvastatin (Simvastatin) 20 Mg Tablet, 20 MG PO HS, TAB 07/28/15 Primary Care Provider JAYY Calhoun MD Jun 14, 2017 11:12
--- NOTE | 2017-06-14 16:32 | RADRPT ---
Vent Rate: 78 bpm RR Interval: 0 msec NV Interval: 198 msec QRS Duration: 172 msec QT Interval: 482 msec QTC Interval: 549 msec P-R-T [place]: 87 - -12 - 74 degrees Electronic atrial pacemaker Right bundle branch block Septal infarct , age undetermined Abnormal ECG Electronically Signed By: Frankie Frost [id number]
== END 2017-06-14 11:30 | disposition hospice, home (50) | DRG 560 ==
LOC: VRC 12:40
PROVIDERS: ADMIT Physical Medicine & Rehabilitation; ATTEND Internal Medicine Pulmonary Disease
PROC: F07Z5ZZ Bed Mobility Treatment (ICD-10-PCS; principal; 2017-05-31)
PROC: F08Z2ZZ Grooming/Personal Hygiene Treatment (ICD-10-PCS; 2017-05-31)
DX: S72.144D Nondisplaced intertrochanteric fracture of right femur, subsequent encounter for closed fracture with routine healing (principal); S72.24XD Nondisplaced subtrochanteric fracture of right femur, subsequent encounter for closed fracture with routine healing; I42.9 Cardiomyopathy, unspecified; N39.0 Urinary tract infection, site not specified; I48.91 Unspecified atrial fibrillation; J44.9 Chronic obstructive pulmonary disease, unspecified; G89.18 Other acute postprocedural pain; I10 Essential (primary) hypertension; E78.5 Hyperlipidemia, unspecified; D64.9 Anemia, unspecified; E05.90 Thyrotoxicosis, unspecified without thyrotoxic crisis or storm; B96.20 Unspecified Escherichia coli [E. coli] as the cause of diseases classified elsewhere; R53.81 Other malaise; F32.9 Major depressive disorder, single episode, unspecified; E07.81 Sick-euthyroid syndrome; I48.2 Chronic atrial fibrillation; W18.30XD Fall on same level, unspecified, subsequent encounter; Z95.810 Presence of automatic (implantable) cardiac defibrillator
CPT/HCPCS: 80048; 80053; 81001; 82962; 84439; 84481; 85025; 87081; 87086; 93005; 97110; 97112; 97150; 97163; 97165; 97530; 97535; 97542; J1650; J2405